=== PATIENT | male | born 1935 | race Caucasian/White ===

== ENCOUNTER → 2019-06-16 | Outpatient (CLI) | payer MEDICARE, SELFPAY | PROVIDERS: PCP Family Medicine; Visit Provider Family Medicine | DX: I10 Essential (primary) hypertension (principal); E78.2 Mixed hyperlipidemia; Z12.5 Encounter for screening for malignant neoplasm of prostate | CPT/HCPCS: 36415; 80061; 80053; G0103; 84153 ==

== ENCOUNTER 2019-12-10 09:28 | Outpatient (CLI) | payer MEDICARE, SELFPAY ==
[2019-12-10 10:53] LABS: Alanine Aminotransferase 15 U/L (4-50); Alkaline Phosphatase 57 U/L (38-126); Aspartate Amino Transferase 24 U/L (17-59); Bilirubin,Total 0.7 mg/dL (0.2-1.3); Blood Urea Nitrogen 17 mg/dL (9-20); Carbon Dioxide 30 mmol/L (22-30); Chloride 103 mmol/L (98-107); Estimated Glomerular Filt Rate > 60; Glucose 99 mg/dL (75-110); Potassium 4.1 mmol/L (3.4-5.0); Sodium 139 mmol/L (137-145)
== END 2019-12-10 09:29 | disposition home or self-care (01) ==
DX: E78.5 Hyperlipidemia, unspecified (principal); I10 Essential (primary) hypertension
CPT/HCPCS: 36415; 80053; 80061

== ENCOUNTER 2020-06-16 09:01 | Outpatient (CLI) | payer MEDICARE, SELFPAY ==
[2020-06-16 09:41] LABS: Basophils Absolute Auto 0.1 K/mm3 (0.0-0.1); Basophils Percent Auto 1.1 % (0.2-1.2); Eosinophils Absolute Auto 0.3 K/mm3 (0-0.3); Eosinophils Percent Auto 4.1 % (0-4.4); Hemoglobin 15.5 g/dL (14.0-18.0); Immature Granulocyte Absolute 0.02 K/mm3 (0.00-0.031); Immature Granulocyte Percent A 0.3 % (0-0.5); Lymphocytes Absolute Auto 1.82 K/mm3 (0.9-3.2); Lymphocytes Percent Auto 29.6 % (18.3-44.2); Mean Corpuscular HGB Conc 33.7 g/dl (32-36); Mean Corpuscular Hemoglobin 31.1 pg (26-34); Mean Corpuscular Volume 92.2 fl (80-100); Mean Platelet Volume 9.6 fl (7.4-10.4); Monocytes Absolute Auto 0.5 K/mm3 (0.1-0.6); Monocytes Percent Auto 7.8 % (2.6-8.5); Neutrophils Absolute Auto 3.5 K/mm3 (1.3-6.7); Neutrophils Percent Auto 57.1 % (45.5-73.1); Platelet Count Result 177 k/mm3 (150-375); Red Blood Count 4.99 M/mm3 (4.6-6.20); Red Cell Distribution Width 12.1 % (11.5-14.5); White Blood Count 6.2 K/mm3 (4.5-10.0)
[2020-06-16 09:53] LABS: Alanine Aminotransferase 13 U/L (4-50); Albumin Level 4.4 g/dL (3.5-5.1); Alkaline Phosphatase 57 U/L (38-126); Anion Gap 6 mmol/L (8-16); Aspartate Amino Transferase 23 U/L (17-59); Bilirubin,Total 0.9 mg/dL (0.2-1.3); Blood Urea Nitrogen 19 mg/dL (9-20); Calcium 9.7 mg/dL (8.4-10.2); Carbon Dioxide 32 mmol/L (22-30); Chloride 102 mmol/L (98-107); Cholesterol 139 mg/dL (0-200); Estimated Glomerular Filt Rate 53; Glucose 97 mg/dL (75-110); HDL Direct 49 mg/dL; Potassium 4.3 mmol/L (3.4-5.0); Sodium 140 mmol/L (137-145); Triglycerides 115 mg/dL (<150)
[2020-06-16 10:04] LABS: LDL Cholesterol Direct 61 mg/dL
[2020-06-16 16:58] LABS: Prostate Specific Antigen 0.1 ng/mL (< OR = 4.0)
== END 2020-06-16 09:02 | disposition home or self-care (01) ==
DX: R53.83 Other fatigue (principal); E78.2 Mixed hyperlipidemia; I10 Essential (primary) hypertension; Z12.5 Encounter for screening for malignant neoplasm of prostate
CPT/HCPCS: 36415; 80053; 80061; 84153; 84443; 85025; G0103

== ENCOUNTER 2020-12-13 09:06 | Outpatient (CLI) | payer MEDICARE, SELFPAY ==
[2020-12-13 10:00] LABS: Alanine Aminotransferase 13 U/L (4-50); Albumin Level 3.9 g/dL (3.5-5.1); Alkaline Phosphatase 53 U/L (38-126); Anion Gap 4 mmol/L (8-16); Aspartate Amino Transferase 22 U/L (17-59); Bilirubin,Total 0.6 mg/dL (0.2-1.3); Blood Urea Nitrogen 20 mg/dL (9-20); Calcium 9.2 mg/dL (8.4-10.2); Carbon Dioxide 28 mmol/L (22-30); Chloride 104 mmol/L (98-107); Cholesterol 118 mg/dL (0-200); Estimated Glomerular Filt Rate 53; Glucose 95 mg/dL (75-110); HDL Direct 49 mg/dL; Potassium 4.2 mmol/L (3.4-5.0); Sodium 136 mmol/L (137-145); Triglycerides 88 mg/dL (<150)
[2020-12-13 10:10] LABS: LDL Cholesterol Direct 49 mg/dL
== END 2020-12-13 09:07 | disposition home or self-care (01) ==
DX: E78.2 Mixed hyperlipidemia (principal); I10 Essential (primary) hypertension
CPT/HCPCS: 36415; 80053; 80061

== ENCOUNTER → 2021-04-06 09:42 | Outpatient (CLI) | payer MEDICARE, SELFPAY ==
--- NOTE | ~2021-04-06 | XR_ITS ---
EXAMINATION: XR wrist RT 2V DATE: 04/06/2021 09:58 INDICATION: Multiple joint pain. TECHNIQUE: 2 views of right wrist were obtained. COMPARISON: None. FINDINGS: Bone alignment is normal. No fracture. There is mild osteoarthritis of triscaphe joint luz acterized by a tiny marginal osteophyte. IMPRESSION: 1. Mild triscaphe joint osteoarthritis. Reviewed, dictated and finalized at location A.
--- NOTE | ~2021-04-06 | XR_ITS ---
XR hand LT 2V DATE: 04/06/2021 09:58 INDICATION: Left hand pain. Multiple joint pain. TECHNIQUE: AP and lateral views COMPARISON: None FINDINGS: There is narrowing of the first metacarpophalangeal joint and multiple interphalangeal join ts and some associated spurring, consistent with polyarticular osteoarthritis. No recent fracture, dislocation, periosteal reaction or bone destruction is detected. IMPRESSION: Polyarticular osteoarthritis Reviewed, dictated and finalized at location A.
--- NOTE | ~2021-04-06 | XR_ITS ---
XR wrist LT 2V DATE: 04/06/2021 09:58 INDICATION: Left wrist pain. Multiple joint pain. TECHNIQUE: AP and lateral views COMPARISON: None FINDINGS: No fracture or dislocation, periosteal reaction or bone destruction, erosive change or jimena drocalcinosis. IMPRESSION: Negative Reviewed, dictated and finalized at location A. IMPRESSION: Negative
--- NOTE | ~2021-04-06 | XR_ITS ---
EXAMINATION: XR hand RT 2V DATE: 04/06/2021 09:58 INDICATION: Multiple joint pain. TECHNIQUE: 2 views of right hand were obtained. COMPARISON: None. FINDINGS: Bone alignment is normal. No fracture. There is an old healed fracture deformity of fourth middle phalanx. There is mild osteoarthritis of triscaphe joint, third metacarpophalangeal joint, and most of the interphalangeal joints. There is moderate osteoarthritis of fourth proximal interphalang eal joint and second distal interphalangeal joint. IMPRESSION: 1. Polyarticular osteoarthritis. Reviewed, dictated and finalized at location A.
== END ==
PROVIDERS: Visit Provider Internal Medicine Rheumatology
DX: M18.12 Unilateral primary osteoarthritis of first carpometacarpal joint, left hand (principal); M19.042 Primary osteoarthritis, left hand; M19.041 Primary osteoarthritis, right hand; M19.031 Primary osteoarthritis, right wrist
CPT/HCPCS: 73100; 73120

== ENCOUNTER 2021-06-22 07:46 | Outpatient (CLI) | payer MEDICARE, SELFPAY ==
[2021-06-22 08:47] LABS: Basophils Absolute Auto 0.1 K/mm3 (0.0-0.1); Eosinophils Absolute Auto 0.2 K/mm3 (0-0.3); Eosinophils Percent Auto 2.4 % (0-4.4); Hematocrit 37.7 % (42.0-52.0); Hemoglobin 12.7 g/dL (14.0-18.0); Immature Granulocyte Absolute 0.02 K/mm3 (0.00-0.031); Immature Granulocyte Percent A 0.3 % (0-0.5); Lymphocytes Absolute Auto 2.35 K/mm3 (0.9-3.2); Mean Corpuscular HGB Conc 33.7 g/dl (32-36); Mean Corpuscular Hemoglobin 33.8 pg (26-34); Mean Corpuscular Volume 100.3 fl (80-100); Mean Platelet Volume 9.1 fl (7.4-10.4); Monocytes Absolute Auto 0.6 K/mm3 (0.1-0.6); Neutrophils Absolute Auto 3.1 K/mm3 (1.3-6.7); Neutrophils Percent Auto 49.3 % (45.5-73.1); Platelet Count Result 181 k/mm3 (150-375); Red Blood Count 3.76 M/mm3 (4.6-6.20); Red Cell Distribution Width 13.3 % (11.5-14.5); White Blood Count 6.2 K/mm3 (4.5-10.0)
[2021-06-22 09:04] LABS: Alanine Aminotransferase 22 U/L (4-50); Alkaline Phosphatase 34 U/L (38-126); Anion Gap 7 mmol/L (8-16); Aspartate Amino Transferase 27 U/L (17-59); Bilirubin,Total 1.1 mg/dL (0.2-1.3); Blood Urea Nitrogen 20 mg/dL (9-20); Calcium 9.5 mg/dL (8.4-10.2); Carbon Dioxide 29 mmol/L (22-30); Chloride 103 mmol/L (98-107); Cholesterol 137 mg/dL (0-200); Estimated Glomerular Filt Rate 52; Glucose 90 mg/dL (65-110); HDL Direct 52 mg/dL; Potassium 4.1 mmol/L (3.4-5.0); Sodium 139 mmol/L (137-145); Triglycerides 106 mg/dL (<150)
[2021-06-22 09:15] LABS: LDL Cholesterol Direct 53 mg/dL
[2021-06-22 09:32] LABS: Prostate Specific Antigen 0.2 ng/mL (< OR = 4.0)
== END 2021-06-22 07:47 | disposition home or self-care (01) ==
DX: R53.83 Other fatigue (principal); E78.2 Mixed hyperlipidemia; I10 Essential (primary) hypertension; Z12.5 Encounter for screening for malignant neoplasm of prostate
CPT/HCPCS: 36415; 80053; 80061; 84153; 84443; 85025; G0103

== ENCOUNTER 2021-06-30 08:16 | Outpatient (CLI) | payer MEDICARE, SELFPAY ==
[2021-06-30 11:43] LABS: Folic Acid > 20.0 ng/mL (2.76->20)
== END 2021-06-30 08:17 | disposition home or self-care (01) ==
LOC: ANHLAB 08:24
DX: D53.9 Nutritional anemia, unspecified (principal)
CPT/HCPCS: 36415; 82607; 82746

== ENCOUNTER 2021-12-09 11:10 | Outpatient (CLI) | payer MEDICARE, SELFPAY ==
[2021-12-09 11:49] LABS: Alanine Aminotransferase 13 U/L (4-50); Albumin Level 4.1 g/dL (3.5-5.1); Alkaline Phosphatase 46 U/L (38-126); Anion Gap 5 mmol/L (8-16); Aspartate Amino Transferase 21 U/L (17-59); Bilirubin,Total 0.7 mg/dL (0.2-1.3); Blood Urea Nitrogen 21 mg/dL (9-20); Calcium 8.8 mg/dL (8.4-10.2); Carbon Dioxide 27 mmol/L (22-30); Chloride 106 mmol/L (98-107); Cholesterol 123 mg/dL (0-200); Estimated Glomerular Filt Rate 52; Glucose 99 mg/dL (65-110); HDL Direct 45 mg/dL; Potassium 4.3 mmol/L (3.4-5.0); Sodium 138 mmol/L (137-145); Triglycerides 88 mg/dL (<150)
[2021-12-09 11:50] LABS: Basophils Absolute Auto 0.1 K/mm3 (0.0-0.1); Basophils Percent Auto 0.7 % (0.2-1.2); Eosinophils Absolute Auto 0.2 K/mm3 (0-0.3); Eosinophils Percent Auto 2.5 % (0-4.4); Hematocrit 37.9 % (42.0-52.0); Hemoglobin 12.2 g/dL (14.0-18.0); Immature Granulocyte Absolute 0.02 K/mm3 (0.00-0.031); Immature Granulocyte Percent A 0.3 % (0-0.5); Lymphocytes Absolute Auto 1.73 K/mm3 (0.9-3.2); Lymphocytes Percent Auto 23.6 % (18.3-44.2); Mean Corpuscular HGB Conc 32.2 g/dl (32-36); Mean Corpuscular Hemoglobin 32.4 pg (26-34); Mean Corpuscular Volume 100.8 fl (80-100); Mean Platelet Volume 9.6 fl (7.4-10.4); Monocytes Absolute Auto 0.7 K/mm3 (0.1-0.6); Monocytes Percent Auto 9.4 % (2.6-8.5); Neutrophils Absolute Auto 4.7 K/mm3 (1.3-6.7); Neutrophils Percent Auto 63.5 % (45.5-73.1); Platelet Count Result 176 k/mm3 (150-375); Red Blood Count 3.76 M/mm3 (4.6-6.20); Red Cell Distribution Width 13.2 % (11.5-14.5); White Blood Count 7.3 K/mm3 (4.5-10.0)
[2021-12-09 12:00] LABS: LDL Cholesterol Direct 45 mg/dL
== END 2021-12-09 11:11 | disposition home or self-care (01) ==
LOC: ANHLAB 11:14
DX: D64.9 Anemia, unspecified (principal); I10 Essential (primary) hypertension; E78.2 Mixed hyperlipidemia
CPT/HCPCS: 36415; 80053; 80061; 85025

== ENCOUNTER 2022-06-17 07:17 | Outpatient (CLI) | payer MEDICARE, SELFPAY ==
[2022-06-17 07:52] LABS: Basophils Percent Auto 0.6 % (0.2-1.2); Eosinophils Absolute Auto 0.1 K/mm3 (0-0.3); Eosinophils Percent Auto 1.9 % (0-4.4); Hemoglobin 11.6 g/dL (14.0-18.0); Immature Granulocyte Absolute 0.03 K/mm3 (0.00-0.031); Immature Granulocyte Percent A 0.5 % (0-0.5); Lymphocytes Absolute Auto 2.67 K/mm3 (0.9-3.2); Lymphocytes Percent Auto 43.2 % (18.3-44.2); Mean Corpuscular HGB Conc 33.1 g/dl (32-36); Mean Corpuscular Hemoglobin 32.3 pg (26-34); Mean Corpuscular Volume 97.5 fl (80-100); Mean Platelet Volume 9.1 fl (7.4-10.4); Monocytes Absolute Auto 0.6 K/mm3 (0.1-0.6); Monocytes Percent Auto 9.1 % (2.6-8.5); Neutrophils Absolute Auto 2.8 K/mm3 (1.3-6.7); Neutrophils Percent Auto 44.7 % (45.5-73.1); Platelet Count Result 187 k/mm3 (150-375); Red Blood Count 3.59 M/mm3 (4.6-6.20); White Blood Count 6.2 K/mm3 (4.5-10.0)
[2022-06-17 08:03] LABS: Alanine Aminotransferase 14 U/L (6-50); Alkaline Phosphatase 43 U/L (38-126); Anion Gap 10 mmol/L (8-16); Aspartate Amino Transferase 19 U/L (17-59); Bilirubin,Total 0.7 mg/dL (0.2-1.3); Blood Urea Nitrogen 26 mg/dL (9-20); Calcium 9.4 mg/dL (8.4-10.2); Carbon Dioxide 25 mmol/L (22-30); Chloride 104 mmol/L (98-107); Cholesterol 138 mg/dL (0-200); Estimated Glomerular Filt Rate 48; Glucose 90 mg/dL (65-110); HDL Direct 52 mg/dL; Sodium 139 mmol/L (137-145); Triglycerides 107 mg/dL (<150)
[2022-06-17 08:14] LABS: LDL Cholesterol Direct 56 mg/dL
[2022-06-17 08:33] LABS: Prostate Specific Antigen 0.2 ng/mL (< OR = 4.0)
== END 2022-06-17 07:18 | disposition home or self-care (01) ==
LOC: ANHLAB 07:24
DX: E78.2 Mixed hyperlipidemia (principal); I10 Essential (primary) hypertension; R53.83 Other fatigue; Z12.5 Encounter for screening for malignant neoplasm of prostate
CPT/HCPCS: 36415; 80053; 80061; 84153; 85025; G0103

== ENCOUNTER 2022-07-19 08:00 | Outpatient (CLI) | payer MEDICARE, SELFPAY ==
[2022-07-19 08:24] LABS: Basophils Percent Auto 0.5 % (0.2-1.2); Eosinophils Absolute Auto 0.2 K/mm3 (0-0.3); Eosinophils Percent Auto 2.9 % (0-4.4); Hematocrit 36.5 % (42.0-52.0); Hemoglobin 12.1 g/dL (14.0-18.0); Immature Granulocyte Absolute 0.01 K/mm3 (0.00-0.031); Immature Granulocyte Percent A 0.1 % (0-0.5); Lymphocytes Absolute Auto 1.58 K/mm3 (0.9-3.2); Lymphocytes Percent Auto 19.8 % (18.3-44.2); Mean Corpuscular HGB Conc 33.2 g/dl (32-36); Mean Corpuscular Hemoglobin 33.4 pg (26-34); Mean Corpuscular Volume 100.8 fl (80-100); Mean Platelet Volume 9.3 fl (7.4-10.4); Monocytes Absolute Auto 0.5 K/mm3 (0.1-0.6); Monocytes Percent Auto 6.4 % (2.6-8.5); Neutrophils Absolute Auto 5.6 K/mm3 (1.3-6.7); Neutrophils Percent Auto 70.3 % (45.5-73.1); Platelet Count Result 190 k/mm3 (150-375); Red Blood Count 3.62 M/mm3 (4.6-6.20); Red Cell Distribution Width 13.3 % (11.5-14.5)
[2022-07-19 08:36] LABS: Alanine Aminotransferase 20 U/L (6-50); Albumin Level 4.1 g/dL (3.5-5.1); Alkaline Phosphatase 45 U/L (38-126); Anion Gap 4 mmol/L (8-16); Aspartate Amino Transferase 22 U/L (17-59); Bilirubin,Total 0.8 mg/dL (0.2-1.3); Blood Urea Nitrogen 23 mg/dL (9-20); CRP 0.9 mg/dL (<1.0); Calcium 9.3 mg/dL (8.4-10.2); Carbon Dioxide 27 mmol/L (22-30); Chloride 102 mmol/L (98-107); Estimated Glomerular Filt Rate 48; Glucose 95 mg/dL (65-110); Potassium 4.6 mmol/L (3.4-5.0); Sodium 133 mmol/L (137-145)
[2022-07-19 11:13] LABS: Erythrocyte Sedimentation Rate 14 mm/hr (0-20)
== END 2022-07-19 08:01 | disposition home or self-care (01) ==
LOC: ANHLAB 08:05
DX: M05.9 Rheumatoid arthritis with rheumatoid factor, unspecified (principal)
CPT/HCPCS: 36415; 80053; 85025; 85652; 86140

== ENCOUNTER 2022-09-06 08:38 | Outpatient (CLI) | payer MEDICARE, SELFPAY ==
[2022-09-06 09:07] LABS: Basophils Percent Auto 0.9 % (0.2-1.2); Eosinophils Absolute Auto 0.2 K/mm3 (0-0.3); Eosinophils Percent Auto 4.1 % (0-4.4); Hematocrit 35.8 % (42.0-52.0); Hemoglobin 11.9 g/dL (14.0-18.0); Immature Granulocyte Absolute 0.01 K/mm3 (0.00-0.031); Immature Granulocyte Percent A 0.2 % (0-0.5); Lymphocytes Absolute Auto 1.68 K/mm3 (0.9-3.2); Lymphocytes Percent Auto 35.9 % (18.3-44.2); Mean Corpuscular HGB Conc 33.2 g/dl (32-36); Mean Corpuscular Hemoglobin 33.5 pg (26-34); Mean Corpuscular Volume 100.8 fl (80-100); Mean Platelet Volume 9.3 fl (7.4-10.4); Monocytes Absolute Auto 0.3 K/mm3 (0.1-0.6); Monocytes Percent Auto 6.8 % (2.6-8.5); Neutrophils Absolute Auto 2.4 K/mm3 (1.3-6.7); Neutrophils Percent Auto 52.1 % (45.5-73.1); Platelet Count Result 153 k/mm3 (150-375); Red Blood Count 3.55 M/mm3 (4.6-6.20); Red Cell Distribution Width 12.9 % (11.5-14.5); White Blood Count 4.7 K/mm3 (4.5-10.0)
[2022-09-06 09:23] LABS: Alanine Aminotransferase 19 U/L (6-50); Albumin Level 4.1 g/dL (3.5-5.1); Alkaline Phosphatase 51 U/L (38-126); Anion Gap 6 mmol/L (8-16); Aspartate Amino Transferase 25 U/L (17-59); Bilirubin,Total 0.9 mg/dL (0.2-1.3); Blood Urea Nitrogen 24 mg/dL (9-20); CRP < 0.5 mg/dL (<1.0); Carbon Dioxide 28 mmol/L (22-30); Chloride 101 mmol/L (98-107); Estimated Glomerular Filt Rate 48; Glucose 88 mg/dL (65-110); Potassium 3.9 mmol/L (3.4-5.0); Sodium 135 mmol/L (137-145)
[2022-09-06 09:43] LABS: Erythrocyte Sedimentation Rate 13 mm/hr (0-20)
== END 2022-09-06 08:39 | disposition home or self-care (01) ==
DX: Z79.899 Other long term (current) drug therapy (principal)
CPT/HCPCS: 36415; 80053; 85025; 85652; 86140

== ENCOUNTER 2022-10-23 12:41 | Outpatient (CLI) | payer MEDICARE, SELFPAY ==
[2022-10-23 13:15] LABS: Basophils Percent Auto 0.8 % (0.2-1.2); Eosinophils Absolute Auto 0.2 K/mm3 (0-0.3); Eosinophils Percent Auto 3.8 % (0-4.4); Hematocrit 38.6 % (42.0-52.0); Hemoglobin 12.6 g/dL (14.0-18.0); Immature Granulocyte Absolute 0.02 K/mm3 (0.00-0.031); Immature Granulocyte Percent A 0.5 % (0-0.5); Lymphocytes Absolute Auto 1.19 K/mm3 (0.9-3.2); Lymphocytes Percent Auto 30.4 % (18.3-44.2); Mean Corpuscular HGB Conc 32.6 g/dl (32-36); Mean Corpuscular Hemoglobin 32.5 pg (26-34); Mean Corpuscular Volume 99.5 fl (80-100); Mean Platelet Volume 9.3 fl (7.4-10.4); Monocytes Absolute Auto 0.4 K/mm3 (0.1-0.6); Neutrophils Absolute Auto 2.1 K/mm3 (1.3-6.7); Neutrophils Percent Auto 54.5 % (45.5-73.1); Platelet Count Result 205 k/mm3 (150-375); Red Blood Count 3.88 M/mm3 (4.6-6.20); Red Cell Distribution Width 12.8 % (11.5-14.5); White Blood Count 3.9 K/mm3 (4.5-10.0)
[2022-10-23 13:23] LABS: Alanine Aminotransferase 19 U/L (6-50); Albumin Level 4.1 g/dL (3.5-5.1); Alkaline Phosphatase 62 U/L (38-126); Anion Gap 5 mmol/L (8-16); Aspartate Amino Transferase 21 U/L (17-59); Blood Urea Nitrogen 17 mg/dL (9-20); Calcium 9.2 mg/dL (8.4-10.2); Carbon Dioxide 28 mmol/L (22-30); Chloride 103 mmol/L (98-107); Estimated Glomerular Filt Rate 52; Glucose 89 mg/dL (65-110); Potassium 4.4 mmol/L (3.4-5.0); Sodium 136 mmol/L (137-145)
[2022-10-23 13:25] LABS: CRP < 0.5 mg/dL (<1.0)
[2022-10-23 16:36] LABS: Erythrocyte Sedimentation Rate 12 mm/hr (0-20)
== END 2022-10-23 12:42 | disposition home or self-care (01) ==
DX: Z79.899 Other long term (current) drug therapy (principal)
CPT/HCPCS: 36415; 80053; 85025; 85652; 86140

== ENCOUNTER 2022-12-13 08:42 | Outpatient (CLI) | payer MEDICARE, SELFPAY ==
[2022-12-13 10:06] LABS: Basophils Percent Auto 0.7 % (0.2-1.2); Eosinophils Absolute Auto 0.2 K/mm3 (0-0.3); Eosinophils Percent Auto 3.9 % (0-4.4); Hematocrit 38.1 % (42.0-52.0); Hemoglobin 12.5 g/dL (14.0-18.0); Immature Granulocyte Absolute 0.02 K/mm3 (0.00-0.031); Immature Granulocyte Percent A 0.4 % (0-0.5); Lymphocytes Absolute Auto 1.76 K/mm3 (0.9-3.2); Mean Corpuscular HGB Conc 32.8 g/dl (32-36); Mean Corpuscular Hemoglobin 32.6 pg (26-34); Mean Corpuscular Volume 99.5 fl (80-100); Monocytes Absolute Auto 0.3 K/mm3 (0.1-0.6); Neutrophils Absolute Auto 3.3 K/mm3 (1.3-6.7); Platelet Count Result 176 k/mm3 (150-375); Red Blood Count 3.83 M/mm3 (4.6-6.20); Red Cell Distribution Width 13.2 % (11.5-14.5); White Blood Count 5.7 K/mm3 (4.5-10.0)
[2022-12-13 10:18] LABS: Alanine Aminotransferase 17 U/L (6-50); Albumin Level 4.1 g/dL (3.5-5.1); Alkaline Phosphatase 59 U/L (38-126); Anion Gap 4 mmol/L (8-16); Aspartate Amino Transferase 23 U/L (17-59); Bilirubin,Total 0.8 mg/dL (0.2-1.3); Blood Urea Nitrogen 25 mg/dL (9-20); Calcium 9.4 mg/dL (8.4-10.2); Carbon Dioxide 30 mmol/L (22-30); Chloride 103 mmol/L (98-107); Cholesterol 133 mg/dL (0-200); Estimated Glomerular Filt Rate 57; Glucose 91 mg/dL (65-110); HDL Direct 42 mg/dL; Potassium 4.1 mmol/L (3.4-5.0); Sodium 137 mmol/L (137-145); Triglycerides 106 mg/dL (<150)
[2022-12-13 10:29] LABS: LDL Cholesterol Direct 56 mg/dL
[2022-12-13 10:54] LABS: Free T4 Free Thyroxine 0.98 ng/mL (0.78-2.19)
== END 2022-12-13 08:43 | disposition home or self-care (01) ==
DX: I10 Essential (primary) hypertension (principal); N28.9 Disorder of kidney and ureter, unspecified; E78.2 Mixed hyperlipidemia; R53.83 Other fatigue
CPT/HCPCS: 36415; 80053; 80061; 84439; 84443; 85025

== ENCOUNTER 2023-01-17 09:00 | Outpatient (CLI) | payer MEDICARE, SELFPAY ==
[2023-01-17 09:45] LABS: Basophils Absolute Auto 0.1 K/mm3 (0.0-0.1); Basophils Percent Auto 0.9 % (0.2-1.2); Eosinophils Absolute Auto 0.2 K/mm3 (0-0.3); Eosinophils Percent Auto 3.2 % (0-4.4); Hematocrit 35.7 % (42.0-52.0); Hemoglobin 11.9 g/dL (14.0-18.0); Immature Granulocyte Absolute 0.01 K/mm3 (0.00-0.031); Immature Granulocyte Percent A 0.2 % (0-0.5); Lymphocytes Absolute Auto 1.56 K/mm3 (0.9-3.2); Lymphocytes Percent Auto 23.8 % (18.3-44.2); Mean Corpuscular HGB Conc 33.3 g/dl (32-36); Mean Corpuscular Hemoglobin 32.2 pg (26-34); Mean Corpuscular Volume 96.5 fl (80-100); Mean Platelet Volume 9.5 fl (7.4-10.4); Monocytes Absolute Auto 0.5 K/mm3 (0.1-0.6); Monocytes Percent Auto 6.9 % (2.6-8.5); Neutrophils Absolute Auto 4.3 K/mm3 (1.3-6.7); Platelet Count Result 181 k/mm3 (150-375); Red Cell Distribution Width 12.3 % (11.5-14.5); White Blood Count 6.6 K/mm3 (4.5-10.0)
[2023-01-17 10:01] LABS: Alanine Aminotransferase 13 U/L (6-50); Alkaline Phosphatase 63 U/L (38-126); Anion Gap 6 mmol/L (8-16); Aspartate Amino Transferase 20 U/L (17-59); Bilirubin,Total 0.8 mg/dL (0.2-1.3); Blood Urea Nitrogen 22 mg/dL (9-20); CRP 2.2 mg/dL (<1.0); Calcium 9.2 mg/dL (8.4-10.2); Carbon Dioxide 28 mmol/L (22-30); Chloride 103 mmol/L (98-107); Estimated Glomerular Filt Rate 57; Glucose 99 mg/dL (65-110); Potassium 4.1 mmol/L (3.4-5.0); Sodium 137 mmol/L (137-145)
[2023-01-17 11:52] LABS: Erythrocyte Sedimentation Rate 23 mm/hr (0-20)
== END 2023-01-17 09:01 | disposition home or self-care (01) ==
PROVIDERS: Visit Provider Internal Medicine Rheumatology
DX: Z79.899 Other long term (current) drug therapy (principal)
CPT/HCPCS: 36415; 80053; 85025; 85652; 86140

== ENCOUNTER 2023-02-05 11:21 | Emergency (ER) | payer MEDICARE, SELFPAY ==
[2023-02-05] VITALS (14 sets, daily range): BP systolic 113–131; BP diastolic 59–73; PULSE 56–79; RESP 13–21; TEMP 36.4; O2SAT 84–100
[2023-02-05 12:07] LABS: Basophils Absolute Auto 0.1 K/mm3 (0.0-0.1); Basophils Percent Auto 0.4 % (0.2-1.2); Eosinophils Absolute Auto 0.1 K/mm3 (0-0.3); Hematocrit 37.3 % (42.0-52.0); Hemoglobin 12.2 g/dL (14.0-18.0); Immature Granulocyte Absolute 0.04 K/mm3 (0.00-0.031); Immature Granulocyte Percent A 0.3 % (0-0.5); Lymphocytes Absolute Auto 1.84 K/mm3 (0.9-3.2); Lymphocytes Percent Auto 15.1 % (18.3-44.2); Mean Corpuscular HGB Conc 32.7 g/dl (32-36); Mean Corpuscular Hemoglobin 32.4 pg (26-34); Mean Corpuscular Volume 99.2 fl (80-100); Mean Platelet Volume 9.5 fl (7.4-10.4); Monocytes Percent Auto 8.5 % (2.6-8.5); Neutrophils Absolute Auto 9.1 K/mm3 (1.3-6.7); Neutrophils Percent Auto 74.7 % (45.5-73.1); Platelet Count Result 223 k/mm3 (150-375); Red Blood Count 3.76 M/mm3 (4.6-6.20); Red Cell Distribution Width 12.5 % (11.5-14.5); White Blood Count 12.2 K/mm3 (4.5-10.0)
[2023-02-05 12:08] LABS: Appearance Urine Clear (Clear); Bilirubin Urine Negative (Negative); Blood Urine Negative (Negative); Color Urine Yellow (Yellow); Glucose Urine UA Negative (Negative); Ketones Urine Trace mg/dL (Negative); Leukocyte Esterase Ur Negative LEU/UL (Negative); Nitrate Urine Negative (Negative); Protein Urine Negative (Negative); Specific Grav Ur 1.016 (1.001-1.035); pH Urine 5.5 (5.0-9.0)
[2023-02-05 12:16] LABS: Add Urine Microscopic? NO
[2023-02-05 12:18] LABS: Alanine Aminotransferase 14 U/L (6-50); Albumin Level 4.2 g/dL (3.5-5.1); Alkaline Phosphatase 64 U/L (38-126); Anion Gap 9 mmol/L (8-16); Aspartate Amino Transferase 21 U/L (17-59); Bilirubin,Total 1.4 mg/dL (0.2-1.3); Blood Urea Nitrogen 29 mg/dL (9-20); Calcium 9.1 mg/dL (8.4-10.2); Carbon Dioxide 27 mmol/L (22-30); Chloride 98 mmol/L (98-107); Estimated CRCL calculation 28 ml/min; Estimated Glomerular Filt Rate 48; Glucose 95 mg/dL (65-110); Lipase 71 U/L (23-300); Potassium 4.2 mmol/L (3.4-5.0); Sodium 134 mmol/L (137-145)
[2023-02-05] MEDS: SODIUM CHLORIDE 0.9% IV 1,000 ML 999 ML IV CONT (12:27)
--- NOTE | 2023-02-05 13:24 | ED.GENADULT ---
HPI - General Adult General Chief complaint: Nausea/Vomiting/Diarrhea Stated complaint: vomiting Time Seen by Provider: 02/05/23 11:56 History of Present Illness HPI narrative: Patient is an 87-year-old male who presents ER with nausea and vomiting. Ongoing over the last 4 days. Referred here by PCP due to concerns for dehydration. Denies fevers or chills or sweats. No abdominal pain. Reports this is occurred to him in the past when he has been in the heat for prolonged period. No alleviating factors. Family reports patient has had 25 pound weight loss but they think it is due to to chronic wasting as he is not treated for RA and has more pain and does less. Related Data Allergies Allergy/AdvReac Type Severity Reaction Status Date / Time cephalexin Allergy Severe ANAPHALYTIC Verified 02/05/23 11:59 Penicillins Allergy Severe RASH Verified 02/05/23 11:59 sulfamethoxazole Allergy Severe RASH Verified 02/05/23 11:59 trimethoprim Allergy Severe RASH Verified 02/05/23 11:59 Review of Systems Review of Systems: All systems reviewed & are unremarkable except as noted in HPI and below Constitutional: Constitutional: Denies chills, Denies fatigue and Denies fever(s) Comments: Weight loss ENT: Denies nasal congestion and Denies sore throat Cardiovascular: Cardiovascular: Denies chest pain and Denies rapid heart rate Respiratory: Respiratory: Denies cough and Denies dyspnea Gastrointestinal: Gastrointestinal: Denies abdominal pain, Denies diarrhea, Reports nausea and Reports vomiting Genitourinary: Genitourinary: Denies dysuria and Denies urinary frequency PMFSH Past Medical History Medical History (Updated 02/05/23 @ 13:36 by Jonathan Saenz MD) BPH (benign prostatic hyperplasia) CVA (cerebral vascular accident) Hypertension Rheumatoid arthritis Surgical History Surgical History (Updated 02/05/23 @ 13:34 by Jonathan Saenz MD) No pertinent past surgical history Exam Narrative: GENERAL: Well-appearing, well-nourished, and in no acute distress. HEAD: Normocephalic, atraumatic. EYES: PERRL and EOMI. ENT: Mucous membranes moist. CHEST: Clear to auscultation. No respiratory distress. HEART: Regular rate and rhythm. Normal peripheral pulses. ABDOMEN: Soft, nontender, nondistended. EXTREMITIES: Normal range of motion. No edema. NEURO: N Alert and oriented x3. PSYCH: Normal mood and affect. Course Course Emergency Course: No nausea or emesis here. Patient hydrated and feels like he needs to urinate. He will be discharged home. Family reports they are following up with PCP regarding weight loss. Vital Signs Vital signs: Vital Signs Temperature 97.6 F 02/05/23 11:25 Pulse Rate 77 02/05/23 11:25 Respiratory Rate 15 02/05/23 11:25 Blood Pressure 123/66 02/05/23 11:25 Pulse Oximetry 100 02/05/23 11:25 Oxygen Delivery Room Air 02/05/23 11:25 Temperature 97.6 F 02/05/23 11:25 Pulse Rate 79 02/05/23 12:10 Respiratory Rate 15 02/05/23 11:25 Blood Pressure 118/72 02/05/23 12:10 Pulse Oximetry 100 02/05/23 11:25 Oxygen Delivery Room Air 02/05/23 11:25 Medical Decision Making Vital Signs Vital Signs: Vital Signs Temperature 97.6 F 02/05/23 11:25 Pulse Rate 77 02/05/23 11:25 Respiratory Rate 15 02/05/23 11:25 Blood Pressure 123/66 02/05/23 11:25 Pulse Oximetry 100 02/05/23 11:25 Oxygen Delivery Room Air 02/05/23 11:25 Temperature 97.6 F 02/05/23 11:25 Pulse Rate 79 02/05/23 12:10 Respiratory Rate 15 02/05/23 11:25 Blood Pressure 118/72 02/05/23 12:10 Pulse Oximetry 100 02/05/23 11:25 Oxygen Delivery Room Air 02/05/23 11:25 Lab Data 02/05/23 11:56 02/05/23 11:56 Labs: Lab Results 02/05/23 Range/Units 11:56 WBC 12.2 H (4.5-10.0) K/mm3 RBC 3.76 L (4.6-6.20) M/mm3 Hgb 12.2 L (14.0-18.0) g/dL Hct 37.3 L (42.0-52.0) % MCV 99.2 (80-1
== END 2023-02-05 13:39 | disposition home or self-care (01) ==
PROVIDERS: Emergency Provider Emergency Medicine; PCP Internal Medicine Rheumatology
DX: E86.0 Dehydration (principal); R11.2 Nausea with vomiting, unspecified; N40.0 Benign prostatic hyperplasia without lower urinary tract symptoms; I10 Essential (primary) hypertension; M06.9 Rheumatoid arthritis, unspecified; Z86.73 Personal history of transient ischemic attack (TIA), and cerebral infarction without residual deficits
CPT/HCPCS: 36415; 80053; 81003; 83690; 85025; 96360; 99283; J7030

== ENCOUNTER 2023-03-01 09:28 | Outpatient (CLI) | payer MEDICARE, SELFPAY ==
[2023-03-01 10:34] LABS: Basophils Absolute Auto 0.1 K/mm3 (0.0-0.1); Basophils Percent Auto 0.9 % (0.2-1.2); Eosinophils Absolute Auto 0.3 K/mm3 (0-0.3); Eosinophils Percent Auto 5.3 % (0-4.4); Hematocrit 35.1 % (42.0-52.0); Hemoglobin 11.5 g/dL (14.0-18.0); Immature Granulocyte Absolute 0.01 K/mm3 (0.00-0.031); Immature Granulocyte Percent A 0.2 % (0-0.5); Lymphocytes Absolute Auto 1.96 K/mm3 (0.9-3.2); Lymphocytes Percent Auto 35.6 % (18.3-44.2); Mean Corpuscular HGB Conc 32.8 g/dl (32-36); Mean Corpuscular Hemoglobin 32.3 pg (26-34); Mean Corpuscular Volume 98.6 fl (80-100); Mean Platelet Volume 10.1 fl (7.4-10.4); Monocytes Absolute Auto 0.5 K/mm3 (0.1-0.6); Monocytes Percent Auto 9.6 % (2.6-8.5); Neutrophils Absolute Auto 2.7 K/mm3 (1.3-6.7); Neutrophils Percent Auto 48.4 % (45.5-73.1); Platelet Count Result 181 k/mm3 (150-375); Red Blood Count 3.56 M/mm3 (4.6-6.20); Red Cell Distribution Width 12.7 % (11.5-14.5); White Blood Count 5.5 K/mm3 (4.5-10.0)
[2023-03-01 10:49] LABS: Alanine Aminotransferase 13 U/L (6-50); Albumin Level 3.7 g/dL (3.5-5.1); Alkaline Phosphatase 49 U/L (38-126); Anion Gap 5 mmol/L (8-16); Aspartate Amino Transferase 20 U/L (17-59); Bilirubin,Total 0.7 mg/dL (0.2-1.3); Blood Urea Nitrogen 26 mg/dL (9-20); CRP 1.1 mg/dL (<1.0); Calcium 8.9 mg/dL (8.4-10.2); Carbon Dioxide 30 mmol/L (22-30); Chloride 101 mmol/L (98-107); Estimated Glomerular Filt Rate 48; Glucose 93 mg/dL (65-110); Sodium 136 mmol/L (137-145)
[2023-03-01 11:17] LABS: Erythrocyte Sedimentation Rate 20 mm/hr (0-20)
== END 2023-03-01 09:29 | disposition home or self-care (01) ==
PROVIDERS: PCP Internal Medicine Rheumatology; Visit Provider Internal Medicine Rheumatology
DX: Z79.899 Other long term (current) drug therapy (principal)
CPT/HCPCS: 36415; 80053; 85025; 85652; 86140

== ENCOUNTER 2023-06-15 07:45 | Outpatient (CLI) | payer MEDICARE, SELFPAY ==
[2023-06-15 08:54] LABS: Basophils Absolute Auto 0.1 K/mm3 (0.0-0.1); Eosinophils Absolute Auto 0.2 K/mm3 (0-0.3); Eosinophils Percent Auto 3.2 % (0-4.4); Immature Granulocyte Absolute 0.02 K/mm3 (0.00-0.031); Immature Granulocyte Percent A 0.3 % (0-0.5); Mean Corpuscular HGB Conc 32.4 g/dl (32-36); Mean Corpuscular Hemoglobin 32.9 pg (26-34); Mean Corpuscular Volume 101.4 fl (80-100); Monocytes Absolute Auto 0.6 K/mm3 (0.1-0.6); Monocytes Percent Auto 8.7 % (2.6-8.5); Neutrophils Percent Auto 58.8 % (45.5-73.1); Platelet Count Result 185 k/mm3 (150-375); Red Blood Count 3.65 M/mm3 (4.6-6.20); Red Cell Distribution Width 13.1 % (11.5-14.5); White Blood Count 6.8 K/mm3 (4.5-10.0)
[2023-06-15 09:00] LABS: Alanine Aminotransferase 12 U/L (6-50); Alkaline Phosphatase 48 U/L (38-126); Anion Gap 4 mmol/L (8-16); Aspartate Amino Transferase 22 U/L (17-59); Bilirubin,Total 0.9 mg/dL (0.2-1.3); Blood Urea Nitrogen 21 mg/dL (9-20); CRP < 0.5 mg/dL (<1.0); Calcium 9.2 mg/dL (8.4-10.2); Carbon Dioxide 29 mmol/L (22-30); Chloride 103 mmol/L (98-107); Estimated Glomerular Filt Rate 52; Glucose 93 mg/dL (65-110); Potassium 4.3 mmol/L (3.4-5.0); Sodium 136 mmol/L (137-145)
[2023-06-15 09:30] LABS: Erythrocyte Sedimentation Rate 16 mm/hr (0-20)
== END 2023-06-15 07:46 | disposition home or self-care (01) ==
LOC: ANHLAB 07:53
PROVIDERS: PCP Internal Medicine Rheumatology; Visit Provider Internal Medicine Rheumatology
DX: Z79.899 Other long term (current) drug therapy (principal)
CPT/HCPCS: 36415; 80053; 85025; 85652; 86140

== ENCOUNTER 2023-06-18 08:37 | Outpatient (CLI) | payer MEDICARE, SELFPAY ==
[2023-06-18 09:23] LABS: Basophils Absolute Auto 0.1 K/mm3 (0.0-0.1); Basophils Percent Auto 0.7 % (0.2-1.2); Eosinophils Absolute Auto 0.3 K/mm3 (0-0.3); Eosinophils Percent Auto 2.7 % (0-4.4); Hematocrit 39.6 % (42.0-52.0); Hemoglobin 12.8 g/dL (14.0-18.0); Immature Granulocyte Absolute 0.03 K/mm3 (0.00-0.031); Immature Granulocyte Percent A 0.3 % (0-0.5); Lymphocytes Absolute Auto 1.64 K/mm3 (0.9-3.2); Lymphocytes Percent Auto 17.8 % (18.3-44.2); Mean Corpuscular HGB Conc 32.3 g/dl (32-36); Mean Corpuscular Hemoglobin 32.9 pg (26-34); Mean Corpuscular Volume 101.8 fl (80-100); Monocytes Absolute Auto 0.7 K/mm3 (0.1-0.6); Monocytes Percent Auto 7.4 % (2.6-8.5); Neutrophils Absolute Auto 6.5 K/mm3 (1.3-6.7); Neutrophils Percent Auto 71.1 % (45.5-73.1); Platelet Count Result 191 k/mm3 (150-375); Red Blood Count 3.89 M/mm3 (4.6-6.20); Red Cell Distribution Width 13.3 % (11.5-14.5); White Blood Count 9.2 K/mm3 (4.5-10.0)
[2023-06-18 09:32] LABS: Alanine Aminotransferase 13 U/L (6-50); Albumin Level 4.3 g/dL (3.5-5.1); Alkaline Phosphatase 53 U/L (38-126); Anion Gap 5 mmol/L (8-16); Aspartate Amino Transferase 22 U/L (17-59); Bilirubin,Total 0.8 mg/dL (0.2-1.3); Blood Urea Nitrogen 25 mg/dL (9-20); Calcium 9.5 mg/dL (8.4-10.2); Carbon Dioxide 31 mmol/L (22-30); Chloride 103 mmol/L (98-107); Cholesterol 125 mg/dL (0-200); Estimated Glomerular Filt Rate 48; Glucose 92 mg/dL (65-110); HDL Direct 51 mg/dL; Sodium 139 mmol/L (137-145); Triglycerides 121 mg/dL (<150)
[2023-06-18 09:55] LABS: LDL Cholesterol Direct 55 mg/dL
[2023-06-18 10:02] LABS: Prostate Specific Antigen 0.6 ng/mL (< OR = 4.0)
== END 2023-06-18 08:38 | disposition home or self-care (01) ==
PROVIDERS: PCP Internal Medicine Rheumatology
DX: D64.9 Anemia, unspecified (principal); I10 Essential (primary) hypertension; Z12.5 Encounter for screening for malignant neoplasm of prostate; E78.2 Mixed hyperlipidemia; R53.83 Other fatigue
CPT/HCPCS: 36415; 80053; 80061; 84153; 84443; 85025; G0103

== ENCOUNTER 2023-11-20 15:27 | Outpatient (CLI) | payer MEDICARE, SELFPAY ==
[2023-11-20 16:48] LABS: Basophils Absolute Auto 0.1 K/mm3 (0.0-0.1); Basophils Percent Auto 0.9 % (0.2-1.2); Eosinophils Absolute Auto 0.3 K/mm3 (0-0.3); Eosinophils Percent Auto 3.6 % (0-4.4); Hematocrit 41.7 % (42.0-52.0); Hemoglobin 13.6 g/dL (14.0-18.0); Immature Granulocyte Absolute 0.03 K/mm3 (0.00-0.031); Immature Granulocyte Percent A 0.4 % (0-0.5); Lymphocytes Absolute Auto 1.96 K/mm3 (0.9-3.2); Lymphocytes Percent Auto 28.2 % (18.3-44.2); Mean Corpuscular HGB Conc 32.6 g/dl (32-36); Mean Corpuscular Hemoglobin 31.9 pg (26-34); Mean Corpuscular Volume 97.9 fl (80-100); Mean Platelet Volume 9.8 fl (7.4-10.4); Monocytes Absolute Auto 0.5 K/mm3 (0.1-0.6); Monocytes Percent Auto 7.3 % (2.6-8.5); Neutrophils Absolute Auto 4.1 K/mm3 (1.3-6.7); Neutrophils Percent Auto 59.6 % (45.5-73.1); Platelet Count Result 191 k/mm3 (150-375); Red Blood Count 4.26 M/mm3 (4.6-6.20); White Blood Count 6.9 K/mm3 (4.5-10.0)
[2023-11-20 17:01] LABS: Alanine Aminotransferase 11 U/L (6-50); Albumin Level 4.1 g/dL (3.5-5.1); Alkaline Phosphatase 63 U/L (38-126); Anion Gap 6 mmol/L (4-12); Aspartate Amino Transferase 22 U/L (17-59); Blood Urea Nitrogen 19 mg/dL (9-20); CRP < 0.5 mg/dL (<1.0); Calcium 9.5 mg/dL (8.4-10.2); Carbon Dioxide 30 mmol/L (22-30); Chloride 103 mmol/L (98-107); Cholesterol 129 mg/dL (0-200); Estimated Glomerular Filt Rate 52; Glucose 92 mg/dL (65-110); HDL Direct 45 mg/dL; Potassium 4.1 mmol/L (3.4-5.0); Sodium 139 mmol/L (137-145); Triglycerides 94 mg/dL (<150)
[2023-11-20 17:10] LABS: LDL Cholesterol Direct 64 mg/dL
[2023-11-20 17:27] LABS: Erythrocyte Sedimentation Rate 11 mm/hr (0-20)
[2023-11-20 17:29] LABS: Prostate Specific Antigen 0.7 ng/mL (< OR = 4.0)
== END 2023-11-20 15:28 | disposition home or self-care (01) ==
PROVIDERS: PCP Internal Medicine Rheumatology; Referring Provider Internal Medicine Rheumatology
DX: R53.83 Other fatigue (principal); I10 Essential (primary) hypertension; D64.9 Anemia, unspecified; N28.9 Disorder of kidney and ureter, unspecified; Z12.5 Encounter for screening for malignant neoplasm of prostate; E78.2 Mixed hyperlipidemia
CPT/HCPCS: 36415; 80053; 80061; 84153; 84443; 85025; 85652; 86140; G0103

== ENCOUNTER 2024-01-29 14:25 | Outpatient (CLI) | payer MEDICARE, SELFPAY ==
[2024-01-29 15:47] LABS: Hematocrit 38.1 % (42.0-52.0); Hemoglobin 12.5 g/dL (14.0-18.0); Mean Corpuscular HGB Conc 32.8 g/dl (32-36); Mean Corpuscular Volume 97.4 fl (80-100); Mean Platelet Volume 10.3 fl (7.4-10.4); Platelet Count Result 163 k/mm3 (150-375); Red Blood Count 3.91 M/mm3 (4.6-6.20); Red Cell Distribution Width 13.4 % (11.5-14.5); White Blood Count 6.2 K/mm3 (4.5-10.0)
[2024-01-29 15:59] LABS: Alanine Aminotransferase 14 U/L (6-50); Albumin Level 4.3 g/dL (3.5-5.1); Alkaline Phosphatase 56 U/L (38-126); Anion Gap 7 mmol/L (4-12); Aspartate Amino Transferase 21 U/L (17-59); Bilirubin,Total 0.8 mg/dL (0.2-1.3); Blood Urea Nitrogen 19 mg/dL (9-20); CRP < 0.5 mg/dL (<1.0); Calcium 9.3 mg/dL (8.4-10.2); Carbon Dioxide 26 mmol/L (22-30); Chloride 104 mmol/L (98-107); Estimated Glomerular Filt Rate 48; Glucose 97 mg/dL (65-110); Sodium 137 mmol/L (137-145)
[2024-01-29 16:55] LABS: Erythrocyte Sedimentation Rate 12 mm/hr (0-20)
== END 2024-01-29 14:26 | disposition home or self-care (01) ==
LOC: ANHLAB 14:32
PROVIDERS: PCP Internal Medicine Rheumatology; Visit Provider Internal Medicine Rheumatology
DX: M05.9 Rheumatoid arthritis with rheumatoid factor, unspecified (principal)
CPT/HCPCS: 36415; 80053; 85027; 85652; 86140

== ENCOUNTER 2024-04-02 08:43 | Outpatient (CLI) | payer MEDICARE, SELFPAY ==
[2024-04-02 09:42] LABS: Hematocrit 39.4 % (42.0-52.0); Hemoglobin 13.1 g/dL (14.0-18.0); Mean Corpuscular HGB Conc 33.2 g/dl (32-36); Mean Corpuscular Hemoglobin 32.8 pg (26-34); Mean Corpuscular Volume 98.7 fl (80-100); Mean Platelet Volume 9.5 fl (7.4-10.4); Platelet Count Result 198 k/mm3 (150-375); Red Blood Count 3.99 M/mm3 (4.6-6.20); Red Cell Distribution Width 13.2 % (11.5-14.5); White Blood Count 5.4 K/mm3 (4.5-10.0)
[2024-04-02 10:32] LABS: Alanine Aminotransferase 13 U/L (6-50); Albumin Level 4.2 g/dL (3.5-5.1); Alkaline Phosphatase 52 U/L (38-126); Anion Gap 10 mmol/L (4-12); Aspartate Amino Transferase 26 U/L (17-59); Bilirubin,Total 1.5 mg/dL (0.2-1.3); Blood Urea Nitrogen 25 mg/dL (9-20); CRP < 0.5 mg/dL (<1.0); Calcium 9.2 mg/dL (8.4-10.2); Carbon Dioxide 28 mmol/L (22-30); Chloride 100 mmol/L (98-107); Estimated Glomerular Filt Rate 52; Glucose 98 mg/dL (65-110); Potassium 4.6 mmol/L (3.4-5.0); Sodium 138 mmol/L (137-145)
[2024-04-02 12:06] LABS: Erythrocyte Sedimentation Rate 18 mm/hr (0-20)
== END 2024-04-02 08:44 | disposition home or self-care (01) ==
PROVIDERS: PCP Internal Medicine Rheumatology; Visit Provider Internal Medicine Rheumatology
DX: M05.9 Rheumatoid arthritis with rheumatoid factor, unspecified (principal)
CPT/HCPCS: 36415; 80053; 85027; 85652; 86140

== ENCOUNTER 2024-07-30 09:46 | Outpatient (CLI) | payer MEDICARE, SELFPAY ==
[2024-07-30 10:14] LABS: Basophils Absolute Auto 0.1 K/mm3 (0.0-0.1); Eosinophils Absolute Auto 0.3 K/mm3 (0-0.3); Eosinophils Percent Auto 4.5 % (0-4.4); Hematocrit 40.2 % (42.0-52.0); Hemoglobin 13.4 g/dL (14.0-18.0); Immature Granulocyte Absolute 0.02 K/mm3 (0.00-0.031); Immature Granulocyte Percent A 0.3 % (0-0.5); Lymphocytes Absolute Auto 1.82 K/mm3 (0.9-3.2); Lymphocytes Percent Auto 31.6 % (18.3-44.2); Mean Corpuscular HGB Conc 33.3 g/dl (32-36); Mean Corpuscular Hemoglobin 31.6 pg (26-34); Mean Corpuscular Volume 94.8 fl (80-100); Mean Platelet Volume 9.4 fl (7.4-10.4); Monocytes Absolute Auto 0.6 K/mm3 (0.1-0.6); Monocytes Percent Auto 10.6 % (2.6-8.5); Platelet Count Result 187 k/mm3 (150-375); Red Blood Count 4.24 M/mm3 (4.6-6.20); Red Cell Distribution Width 12.4 % (11.5-14.5); White Blood Count 5.8 K/mm3 (4.5-10.0)
[2024-07-30 10:31] LABS: Alanine Aminotransferase 16 U/L (6-50); Albumin Level 4.1 g/dL (3.5-5.1); Alkaline Phosphatase 64 U/L (38-126); Anion Gap 5 mmol/L (4-12); Aspartate Amino Transferase 26 U/L (17-59); Bilirubin,Total 0.9 mg/dL (0.2-1.3); Blood Urea Nitrogen 23 mg/dL (9-20); CRP < 0.5 mg/dL (<1.0); Calcium 9.3 mg/dL (8.4-10.2); Carbon Dioxide 28 mmol/L (22-30); Chloride 104 mmol/L (98-107); Estimated Glomerular Filt Rate 48; Glucose 94 mg/dL (65-110); Potassium 4.1 mmol/L (3.4-5.0); Sodium 137 mmol/L (137-145)
[2024-07-30 11:04] LABS: Erythrocyte Sedimentation Rate 16 mm/hr (0-20)
== END 2024-07-30 09:47 | disposition home or self-care (01) ==
LOC: ANHLAB 09:49
PROVIDERS: Visit Provider Internal Medicine Rheumatology
DX: Z79.899 Other long term (current) drug therapy (principal)
CPT/HCPCS: 36415; 80053; 85025; 85652; 86140

== ENCOUNTER 2024-08-31 16:17 | Emergency (ER) | payer MEDICARE, SELFPAY ==
--- NOTE | ~2024-08-31 | XR_ITS ---
CHEST RADIOGRAPH, PA AND LATERAL CLINICAL HISTORY: URI . COMPARISON: Reference is made to a CT examination of the chest dated 06/25/2019 TECHNIQUE: PA and lateral views of the chest. FINDINGS The cardiomediastinal silhouette is unremarkable. Calcified granuloma within the right mid to upper lung field. The lungs are otherwise clear. Visualized osseous structures and soft tissues are unremarkable. IMPRESSION: No focal infiltrate or effusion. Reviewed, dictated and finalized at location A. ZLYMAN
[2024-08-31 16:19] VITALS: O2SAT 97
[2024-08-31 16:20] VITALS: BP 122/62; PULSE 75; RESP 18; TEMP 36.3; O2SAT 93
--- NOTE | 2024-08-31 16:24 | ECG_ITS ---
Test Date: 2024-08-31 16:31:44 Measurements Intervals [place] Rate: 65 P: 77 ME: 195 QRS: -46 QRSD: 95 T: 51 QT: 427 QTc: 444 Interpretive Statements SINUS RHYTHM INCOMPLETE RIGHT BUNDLE BRANCH BLOCK [90+ ms QRS DURATION, TERMINAL R IN V1/V2, 40+ ms S IN I/aVL/V4/V5/V6] LEFT ANTERIOR FASCICULAR BLOCK [QRS AXIS <= -45, QR IN I, RS IN II] MINIMAL VOLTAGE CRITERIA FOR LVH, CONSIDER NORMAL VARIANT [MEETS CRITERIA IN ONE OF: R(aVL), S(V1), R(V5), R(V5/V6)+S(V1)] No previous ECG available for comparison Electronically Signed On 09-03-2024 16:48:22 [employer] REPRES[employer]IVE by Mattie Henderson M.D.
[2024-08-31 16:38] VITALS: O2SAT 94
[2024-08-31 16:40] VITALS: BP 104/83; PULSE 57; RESP 18; O2SAT 94
[2024-08-31 16:53] LABS: Basophils Percent Auto 0.2 % (0.2-1.2); Eosinophils Absolute Auto 0.1 K/mm3 (0-0.3); Hematocrit 38.7 % (42.0-52.0); Hemoglobin 13.4 g/dL (14.0-18.0); Immature Granulocyte Absolute 0.02 K/mm3 (0.00-0.031); Immature Granulocyte Percent A 0.2 % (0-0.5); Lymphocytes Absolute Auto 2.06 K/mm3 (0.9-3.2); Mean Corpuscular HGB Conc 34.6 g/dl (32-36); Mean Corpuscular Hemoglobin 32.1 pg (26-34); Mean Corpuscular Volume 92.6 fl (80-100); Mean Platelet Volume 9.6 fl (7.4-10.4); Monocytes Percent Auto 11.9 % (2.6-8.5); Neutrophils Absolute Auto 5.4 K/mm3 (1.3-6.7); Neutrophils Percent Auto 62.7 % (45.5-73.1); Platelet Count Result 153 k/mm3 (150-375); Red Blood Count 4.18 M/mm3 (4.6-6.20); Red Cell Distribution Width 13.2 % (11.5-14.5); White Blood Count 8.6 K/mm3 (4.5-10.0)
[2024-08-31 17:10] LABS: Alanine Aminotransferase 15 U/L (6-50); Albumin Level 3.9 g/dL (3.5-5.1); Alkaline Phosphatase 65 U/L (38-126); Anion Gap 5 mmol/L (4-12); Aspartate Amino Transferase 24 U/L (17-59); Bilirubin,Total 0.7 mg/dL (0.2-1.3); Blood Urea Nitrogen 46 mg/dL (9-20); Calcium 8.8 mg/dL (8.4-10.2); Carbon Dioxide 29 mmol/L (22-30); Chloride 98 mmol/L (98-107); Estimated CRCL calculation 21 ml/min; Estimated Glomerular Filt Rate 34; Glucose 106 mg/dL (65-110); Magnesium 2.5 mg/dL (1.6-2.3); Potassium 3.9 mmol/L (3.4-5.0); Sodium 132 mmol/L (137-145)
[2024-08-31 17:27] LABS: Influenza A QL RT-PCR Negative (Negative); Influenza B QL RT-PCR Negative (Negative); RSV RNA, RT-PCR Positive (Negative); SARS-CoV-2 RNA PCR Negative (Negative)
[2024-08-31] MEDS: LACTATED RINGERS 1,000 ML 999 ML IV CONT (17:43)
[2024-08-31 18:01] VITALS: BP 127/66; PULSE 65; RESP 18; TEMP 36.7; O2SAT 98
--- NOTE | 2024-08-31 20:26 | ED_ITS ---
HPI - Weakness General Chief complaint: Weakness Stated complaint: URI, weak Time Seen by Provider: 08/31/24 16:24 History of Present Illness HPI Narrative: 89-year-old male presenting to the emergency department for evaluation of upper respiratory infection symptoms, shortness of breath, generalized weakness for last week. He endorses a productive cough, denies any fever, chills and denies any pain. No chest pain or pressure. He states he is otherwise in his normal state of health. Patient is accompanied by his son who provides the majority collateral formation. Patient has a significant history including rheumatoid arthritis, hypertension prior cerebrovascular accident with residual speech deficits. No recent injuries or illnesses. He is not any sick contacts to their knowledge. Related Data Allergies Allergy/AdvReac Type Severity Reaction Status Date / Time cephalexin Allergy Severe ANAPHALYTIC Verified 02/05/23 11:59 Penicillins Allergy Severe RASH Verified 02/05/23 11:59 sulfamethoxazole Allergy Severe RASH Verified 02/05/23 11:59 trimethoprim Allergy Severe RASH Verified 02/05/23 11:59 Review of Systems 2 Review of Systems: As reviewed [facility] HPI [facility] Past Medical History Medical History BPH (benign prostatic hyperplasia) Rheumatoid arthritis CVA (cerebral vascular accident) Hypertension Surgical History Surgical History No pertinent past surgical history Exam 2 Narrative: GENERAL: [Well-appearing, well-nourished, and in no acute distress.] HEAD: [Normocephalic, atraumatic.] EYES: [PERRLA and EOMI.] ENT: Nares clear, no rhinorrhea or epistaxis. Mucous membranes slightly dry. NECK: Supple. CHEST: Clear breath sounds, no respiratory distress or tachypnea, no accessory muscle use. Coughs infrequently during the exam. HEART: [Regular rate and rhythm]. No murmur heard. [Normal peripheral pulses.] ABDOMEN: [Soft, nondistended], [nontender], [No rigidity or guarding] EXTREMITIES: Normal range of motion. [No edema.] SKIN: Warm, dry, no rash. NEURO: [No focal deficits]. Alert and oriented [x3.] PSYCH: [Normal mood and affect.] Course Vital Signs Vital signs: Vital Signs Pulse Oximetry 97 08/31/24 16:19 Oxygen Delivery Room Air 08/31/24 16:19 Temperature 36.7 C 08/31/24 18:01 Pulse Rate 65 08/31/24 18:01 Respiratory Rate 18 08/31/24 18:01 Blood Pressure 127/66 08/31/24 18:01 Pulse Oximetry 98 08/31/24 18:01 Oxygen Delivery Room Air 08/31/24 16:20 MDM - Weakness MDM Narrative Medical decision making narrative: 89-year-old male with a history of hypertension, CKD, prior stroke with some residual speech deficits, rheumatoid arthritis. Presents to the emergency department with complaints of upper respiratory infection symptoms including productive cough, intermittent shortness of breath and weakness. Symptoms going on for 1 week. He is otherwise well-appearing not in any acute distress and is awake alert oriented. Vital signs are all within normal limits without any tachycardia, fever, hypoxia blood pressure concerns. He is not labored in his breathing and has clear breath sounds throughout. Considerations presently are for upper respiratory infection, viral illness, COVID, flu, influenza, pneumonia. Low suspicion other process but given his generalized weakness we will obtain laboratory studies including CBC and CMP to evaluate for any electrolyte disturbances or evidence of dehydration. Has provided hydration with 1 L likely Ringer bolus. No leukocytosis or anemia identified. He does have a slight elevation in his chronic CKD based on previous creatinine levels indicative of an MELISSA. LFTs within normal limits. Test was positive for RSV, negative for influenza and COVID. Chest x-ray shows no acute cardiopulmonary process. Discussed with the patient his laboratory results and imaging studies. I discussed the MELISSA and the RSV diagnosis. Patient did receive hydration here and is tolerating p.o. intake and did have improvement in his symptoms. The family felt comfortable with patient going home for oral hydration and monitoring rather than admission to the hospital. This is appropriate given patient's normal vital signs, largely unremarkable workup aside from his slight dehydration. He was given return precautions and expected management instructions for his RSV. Patient and family verbalized understanding and was safe for discharge at this time. Medical Records Attestation: I reviewed the patient's medical records. Lab Data Attestation: I reviewed the patient's lab results. 08/31/24 16:39 08/31/24 16:39 Labs: Lab Results 0108/31/24 08/31/24 Range/Units 16:39 16:39 16:39 WBC 8.6 (4.5-10.0) K/mm3 RBC 4.18 L (4.6-6.20) M/mm3 Hgb 13.4 L (14.0-18.0) g/dL Hct 38.7 L (42.0-52.0) % MCV 92.6 (80-100) fl MCH 32.1 (26-34) pg MCHC 34.6 (32-36) g/dl RDW 13.2 (11.5-14.5) % Plt Count 153 (150-375) k/mm3 MPV 9.6 (7.4-10.4) fl Immature Gran % (Auto) 0.2 (0-0.5) % Neut % (Auto) 62.7 (45.5-73.1) % Lymph % (Auto) 24.0 (18.3-44.2) % [place] % (Auto) 11.9 H (2.6-8.5) % Eos % (Auto) 1.0 (0-4.4) % Baso % (Auto) 0.2 (0.2-1.2) % Lymph # (Auto) 2.06 (0.9-3.2) K/mm3 [place] # (Auto) 1.0 H (0.1-0.6) K/mm3 Eos # (Auto) 0.1 (0-0.3) K/mm3 Baso # (Auto) 0.0 (0.0-0.1) K/mm3 Abs Immat Gran (auto) 0.02 (0.00-0.031) K/mm3 Absolute Neuts (auto) 5.4 (1.3-6.7) K/mm3 Absolute Nucleated RBC 0.000 (0.0-0.012) K/mm3 Nucleated RBC % 0.0 (0.0-0.2) % Sodium Cancelled 132 L Potassium Cancelled 3.9 Chloride Cancelled Carbon Dioxide Anion Gap BUN Creatinine Estim Creat Clear Calc Estimated GFR Glucose Calcium Magnesium (1.6-2.3) mg/dL Total Bilirubin AST ALT Alkaline Phosphatase Total Protein Albumin Influenza A (RT-PCR) (Negative) Influenza B (RT-PCR) (Negative) RSV (RT-PCR) (Negative) SARS-CoV-2 RNA (RT-PCR) (Negative) 08/31/24 08/31/24 08/31/24 Range/Units 16:39 16:39 16:39 WBC (4.5-10.0) K/mm3 RBC (4.6-6.20) M/mm3 Hgb (14.0-18.0) g/dL Hct (42.0-52.0) % MCV (80-100) fl MCH (26-34) pg MCHC (32-36) g/dl RDW (11.5-14.5) % Plt Count (150-375) k/mm3 MPV (7.4-10.4) fl Immature Gran % (Auto) (0-0.5) % Neut % (Auto) (45.5-73.1) % Lymph % (Auto) (18.3-44.2) % [place] % (Auto) (2.6-8.5) % Eos % (Auto) (0-4.4) % Baso % (Auto) (0.2-1.2) % Lymph # (Auto) (0.9-3.2) K/mm3 [place] # (Auto) (0.1-0.6) K/mm3 Eos # (Auto) (0-0.3) K/mm3 Baso # (Auto) (0.0-0.1) K/mm3 Abs Immat Gran (auto) (0.00-0.031) K/mm3 Absolute Neuts (auto) (1.3-6.7) K/mm3 Absolute Nucleated RBC (0.0-0.012) K/mm3 Nucleated RBC % (0.0-0.2) % Sodium Potassium Chloride 98 Carbon Dioxide Cancelled 29 Anion Gap Cancelled 5 BUN Cancelled Creatinine Estim Creat Clear Calc Estimated GFR Glucose Calcium Magnesium (1.6-2.3) mg/dL Total Bilirubin AST ALT Alkaline Phosphatase Total Protein Albumin Influenza A (RT-PCR) (Negative) Influenza B (RT-PCR) (Negative) RSV (RT-PCR) (Negative) SARS-CoV-2 RNA (RT-PCR) (Negative) 08/31/24 08/31/24 08/31/24 Range/Units 16:39 16:39 16:39 WBC (4.5-10.0) K/mm3 RBC (4.6-6.20) M/mm3 Hgb (14.0-18.0) g/dL Hct (42.0-52.0) % MCV (80-100) fl MCH (26-34) pg MCHC (32-36) g/dl RDW (11.5-14.5) % Plt Count (150-375) k/mm3 MPV (7.4-10.4) fl Immature Gran % (Auto) (0-0.5) % Neut % (Auto) (45.5-73.1) % Lymph % (Auto) (18.3-44.2) % [place] % (Auto) (2.6-8.5) % Eos % (Auto) (0-4.4) % Baso % (Auto) (0.2-1.2) % Lymph # (Auto) (0.9-3.2) K/mm3 [place] # (Auto) (0.1-0.6) K/mm3 Eos # (Auto) (0-0.3) K/mm3 Baso # (Auto) (0.0-0.1) K/mm3 Abs Immat Gran (auto) (0.00-0.031) K/mm3 Absolute Neuts (auto) (1.3-6.7) K/mm3 Absolute Nucleated RBC (0.0-0.012) K/mm3 Nucleated RBC % (0.0-0.2) % Sodium Potassium Chloride Carbon Dioxide Anion Gap BUN 46 H D Creatinine Cancelled 1.90 H Estim Creat Clear Calc Cancelled 21 Estimated GFR Cancelled Glucose Calcium Magnesium (1.6-2.3) mg/dL Total Bilirubin AST ALT Alkaline Phosphatase Total Protein Albumin Influenza A (RT-PCR) (Negative) Influenza B (RT-PCR) (Negative) RSV (RT-PCR) (Negative) SARS-CoV-2 RNA (RT-PCR) (Negative) 08/31/24 08/31/24 08/31/24 Range/Units 16:39 16:39 16:39 WBC (4.5-10.0) K/mm3 RBC (4.6-6.20) M/mm3 Hgb (14.0-18.0) g/dL Hct (42.0-52.0) % MCV (80-100) fl MCH (26-34) pg MCHC (32-36) g/dl RDW (11.5-14.5) % Plt Count (150-375) k/mm3 MPV (7.4-10.4) fl Immature Gran % (Auto) (0-0.5) % Neut % (Auto) (45.5-73.1) % Lymph % (Auto) (18.3-44.2) % [place] % (Auto) (2.6-8.5) % Eos % (Auto) (0-4.4) % Baso % (Auto) (0.2-1.2) % Lymph # (Auto) (0.9-3.2) K/mm3 [place] # (Auto) (0.1-0.6) K/mm3 Eos # (Auto) (0-0.3) K/mm3 Baso # (Auto) (0.0-0.1) K/mm3 Abs Immat Gran (auto) (0.00-0.031) K/mm3 Absolute Neuts (auto) (1.3-6.7) K/mm3 Absolute Nucleated RBC (0.0-0.012) K/mm3 Nucleated RBC % (0.0-0.2) % Sodium Potassium Chloride Carbon Dioxide Anion Gap BUN Creatinine Estim Creat Clear Calc Estimated GFR 34 L Glucose Cancelled 106 Calcium Cancelled 8.8 Magnesium 2.5 H (1.6-2.3) mg/dL Total Bilirubin Cancelled AST ALT Alkaline Phosphatase Total Protein Albumin Influenza A (RT-PCR) (Negative) Influenza B (RT-PCR) (Negative) RSV (RT-PCR) (Negative) SARS-CoV-2 RNA (RT-PCR) (Negative) 08/31/24 08/31/24 08/31/24 Range/Units 16:39 16:39 16:39 WBC (4.5-10.0) K/mm3 RBC (4.6-6.20) M/mm3 Hgb (14.0-18.0) g/dL Hct (42.0-52.0) % MCV (80-100) fl MCH (26-34) pg MCHC (32-36) g/dl RDW (11.5-14.5) % Plt Count (150-375) k/mm3 MPV (7.4-10.4) fl Immature Gran % (Auto) (0-0.5) % Neut % (Auto) (45.5-73.1) % Lymph % (Auto) (18.3-44.2) % [place] % (Auto) (2.6-8.5) % Eos % (Auto) (0-4.4) % Baso % (Auto) (0.2-1.2) % Lymph # (Auto) (0.9-3.2) K/mm3 [place] # (Auto) (0.1-0.6) K/mm3 Eos # (Auto) (0-0.3) K/mm3 Baso # (Auto) (0.0-0.1) K/mm3 Abs Immat Gran (auto) (0.00-0.031) K/mm3 Absolute Neuts (auto) (1.3-6.7) K/mm3 Absolute Nucleated RBC (0.0-0.012) K/mm3 Nucleated RBC % (0.0-0.2) % Sodium Potassium Chloride Carbon Dioxide Anion Gap BUN Creatinine Estim Creat Clear Calc Estimated GFR Glucose Calcium Magnesium (1.6-2.3) mg/dL Total Bilirubin 0.7 AST Cancelled 24 ALT Cancelled 15 Alkaline Phosphatase Cancelled Total Protein Albumin Influenza A (RT-PCR) (Negative) Influenza B (RT-PCR) (Negative) RSV (RT-PCR) (Negative) SARS-CoV-2 RNA (RT-PCR) (Negative) 08/31/24 08/31/24 08/31/24 Range/Units 16:39 16:39 16:39 WBC (4.5-10.0) K/mm3 RBC (4.6-6.20) M/mm3 Hgb (14.0-18.0) g/dL Hct (42.0-52.0) % MCV (80-100) fl MCH (26-34) pg MCHC (32-36) g/dl RDW (11.5-14.5) % Plt Count (150-375) k/mm3 MPV (7.4-10.4) fl Immature Gran % (Auto) (0-0.5) % Neut % (Auto) (45.5-73.1) % Lymph % (Auto) (18.3-44.2) % [place] % (Auto) (2.6-8.5) % Eos % (Auto) (0-4.4) % Baso % (Auto) (0.2-1.2) % Lymph # (Auto) (0.9-3.2) K/mm3 [place] # (Auto) (0.1-0.6) K/mm3 Eos # (Auto) (0-0.3) K/mm3 Baso # (Auto) (0.0-0.1) K/mm3 Abs Immat Gran (auto) (0.00-0.031) K/mm3 Absolute Neuts (auto) (1.3-6.7) K/mm3 Absolute Nucleated RBC (0.0-0.012) K/mm3 Nucleated RBC % (0.0-0.2) % Sodium Potassium Chloride Carbon Dioxide Anion Gap BUN Creatinine Estim Creat Clear Calc Estimated GFR Glucose Calcium Magnesium (1.6-2.3) mg/dL Total Bilirubin AST ALT Alkaline Phosphatase 65 Total Protein Cancelled 7.0 Albumin Cancelled 3.9 Influenza A (RT-PCR) Negative (Negative) Influenza B (RT-PCR) Negative (Negative) RSV (RT-PCR) Positive A (Negative) SARS-CoV-2 RNA (RT-PCR) Negative (Negative) Imaging Data Attestation: I personally reviewed and interpreted this imaging study as follows: My impression: Impressions Chest X-Ray 08/31/24 17:34 IMPRESSION: No focal infiltrate or effusion. Discharge Plan Discharge Clinical Impression: Respiratory syncytial virus (RSV), URI (upper respiratory infection), Acute kidney injury superimposed on chronic kidney disease Patient Disposition: Home, Self-Care Condition: Stable Instructions: Antibiotic Form, Acute Kidney Injury (DC), Upper Respiratory Infection (ED), RSV (Respiratory Syncytial Virus) Infection (ED) Additional Instructions: He did test positive for RSV which is a viral upper respiratory infection. You do not have any kind of pneumonia. Please continue hydrating and eating and drinking appropriately, you have some minor kidney injury on top of your chronic kidney disease. Follow-up with your regular primary care provider, return with any new or worsening concerns such as decreased p.o. intake, increased lethargy, fevers, respiratory distress or any other concerns. Patient Language: [place] Prescriptions: No Action ondansetron 4 mg tablet,disintegrating 4 mg PO Q6H PRN (Reason: nausea and vomiting) Qty: 10 0RF Follow-up/Referrals: UNKNOWN,DOCTOR [Primary Care Provider] - Time of Disposition: 17:59
--- OUTSIDE RECORDS SUMMARY | 2024-09-07 07:13 | XMS_ITS | Data Portability ---
Author Organization [facility], [address] [facility] ([place]) Address [address] [place] [address] Care Team Providers Care Talent Acquisition Manager Name Role Phone KRISTIN CEDENO Primary Care Provider LUISITO CEDENO Referring Provider [phone] Assessment Encounter Date Assessment Date Assessment LastModified by Organization Details LastModified Time 02/07/2024 02/07/2024 IMPRESSION: 1. 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 2. Osteoarthritis. 3. Chronic kidney disease stage 3. PLAN: 1. Advised the patient that when he is outside, especially golfing when he will tend to sweat a lot in the extreme heat, he should hydrate well with consumption of 100 ounces of water daily. We reviewed the signs and symptoms of heat stroke and he is to get inside immediately if he experiences even the earliest signs of heat stroke. 2. Continue current methotrexate and folate dosing. 3. DMARD labs to continue every 4-5 months for recheck. 4. Followup visit in 6 months. [email or web address] Not available 02/07/2024 13:06:24 08/07/2024 08/07/2024 IMPRESSION: 1. Seropositive RA. 2. Osteoarthritis. 3. Chronic kidney disease stage 3. PLAN: 1. Continue current low dose methotrexate and folate therapy. 2. Prednisone 1 mg tablets 3 tablets daily for 3 days only as needed for flares. 3. Followup visit in 6 months though he will have repeat DMARD labs in 4 months. karen Not available 08/07/2024 13:25:11 Plan of Treatment Reminders Order Date Submit Date Provider Last Modified By Organization Details Last Modified Time Details Appointments Establish ed Patient 15.EST 2024 08:00A M Dr. Darvin Santos Not available Not available Not available Lab CBC 2023 024 [facility], [address] [place] [address], [id number], 04/02/2024 15:43:30 CMP, serum or plasma 2023 024 [facility], [address] [place] [address], [id number], 04/02/2024 12:15:10 ESR (erythroc yte sedimenta tion rate), blood 2023 024 [email or web address], [address] [place] [address], [id number], 05/21/2024 14:22:09 unlisted lab - CRP ([facility]) 2023 024 [email or web address] [facility], [address] [place] [address], [id number], 05/21/2024 14:22:09 Referral None recorded. Procedures None recorded. Surgeries None recorded. Imaging None recorded. Medication Orders None recorded. Patient TargetsNo targets recorded. Patient InstructionsNo instructions recorded. Reason for Referral None Reported. Results Created Date Observation Date Name Description Value Unit Range Abnormal Flag Note LastModifiedBy Organization Detail LastModifiedTime Result Notes None recorded. Problems Name Problem SNOMED Code Status Onset Date Resolution Date Notes Provider Name and Address Organization Details Recorded Time Seropositive rheumatoid arthritis 907890120 Active 2023 Melquiades Maria [facility] 4 09:30:43 Osteoarthritis 502739903 [facility]23 [facility] 4 12:45:01 Chronic kidney disease stage 3 523029237 Active 2023 Katie Cheema [facility] 4 12:45:08 Problem Notes None recorded. Procedures Surgical History Date Name Laterality Status Provider Name and Address Organization Details Recorded Time Appendectomy completed Not Available Health Note 02/05/2024 22:02:39 Imaging Results None recorded. Procedure Notes None recorded. Medical Equipment None Reported. Allergies Allergen ID Allergen Name Allergen Category Reaction Reaction Severity Criticality Documentation Date Start Date Code Code System Note Provider Name and Address Organization Details Recorded Time [id number] 06900 Substance with sulfonami de structure and antibacte rial mechanism of action (substanc e) medicatio n hives Not available Not available 09/24/20232021 98067 8003 SNOMED React ion: Hives ; Not Available Not Available Not Available [id number] 29b50 cephalexi n medicatio n other Not available Not available 09/24/20232021 2231 RxNorm React ion: Unkno wn to Patie nt; Not Available Not Available Not Available [id number] 29b50 Medicinal product containin g penicilli n and acting as antibacte rial agent (product) medicatio n other Not available Not available 09/24/20232021 46602 05 SNOMED React ion: Unkno wn to Patie nt; Not Available Not Available Not Available Medications Name Sig Start Date Stop Date Status Note LastModified by Organization Details LastModified Time aspirin 325 mg tablet Take 1 tablet every day by oral route. active Not Available Not Available No t Available lisinopril 20 mg tablet TAKE (1) TABLET BY MOUTH EVERY DAY active Not Available Not Available No t Available alprazolam 0.25 mg tablet TAKE (1) TABLET BY MOUTH THREE TIMES DAILY active Not Available Not Available No t Available methotrexat e sodium 2.5 mg tablet ONCE WEEKLY, TAKE 4 TABLETS BY MOUTH active Not Available Not Available No t Available tamsulosin 0.4 mg capsule TAKE (1) CAPSULE BY MOUTH AT BEDTIME active Not Available Not Available No t Available prednisone 1 mg tablet TAKE (1) TABLET BY MOUTH DAILY active Not Available Not Available No t Available hydrocodone 7.5 mg-acetamin ophen 325 mg tablet TAKE (1) TABLET BY MOUTH FOUR TIMES DAILY NEEDED FOR PAIN active Not Available Not Available No t Available folic acid 1 mg tablet TAKE (2) TABLETS BY MOUTH EVERY DAY active Not Available Not Available No t Available hydrocortis one 2.5 % topical cream Apply TO affected AREA twice daily. active Not Available Not Available No t Available metoprolol succinate ER 25 mg tablet,exte nded release 24 hr TAKE (1) TABLET BY MOUTH DAILY active Not Available Not Available No t Available zolpidem 10 mg tablet TAKE (1) TABLET BY MOUTH AT BEDTIME active Not Available Not Available No t Available ondansetron 4 mg disintegrat ing tablet DISSOLVE (1) TABLET UNDER TONGUE EVERY 6 HOURS NEEDED FOR NAUSEA 01/30 completed Not Available Not Available Not Available Tylenol Extra Strength 500 mg tablet Take 2 tablets 3 times a day by oral route. active Not Available Not Available No t Available rosuvastati n 10 mg tablet TAKE (1) TABLET BY MOUTH DAILY active Not Available Not Available No t Available Vitals Date Recorded Body height Body mass index (BMI) Body weight Heart rate Oxygen saturation Oxygen saturation in Arterial blood by Pulse oximetry Systolic blood pressure Diastolic blood pressure Provider Name and Address Organization Details Last Updated DateTime 4 167.64 cm 22.3 kg/m2 68111.7 5 g 51 /min 97 % 97 % 120 mm[Hg] 70 mm[Hg] Katieammon Cheema [facility] 4 08:58:15 Date Recorded Body height Heart rate Oxygen saturation Oxygen saturation in Arterial blood by Pulse oximetry Systolic blood pressure Diastolic blood pressure Provider Name and Address Organization Details Last Updated DateTime 4 167.64 cm 61 /min 97 % 97 % 130 mm[Hg] 84 mm[Hg] Melquiades Alstonw [facility] 4 09:08:43 Social History Question Answer Notes LastModified by Organizat ion Details LastModified Time Do You Have An Advance Directive? Yes [email or web address] Information not available 02/05/2024 What Is Your Level Of Alcohol Consumption? None [email or web address] Information not available 02/05/2024 What Is Your Level Of Caffeine Consumption? Moderate [email or web address] Information not available 02/05/2024 What Is Your Code Status? DNR [email or web address] Information not available 02/05/2024 Are You Currently Employed? 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 Less Than 1 Time Per Week [email or web address] Information not available 02/05/2024 Do You Have A Medical Power Of Refrigeration Insulator? Yes [email or web address] Information not available 02/05/2024 What Was The Date Of Your Most Recent Tobacco Screening? 02/07/2024 [email or web address] Information not available 02/05/2024 What Is Your Relationship Status? [email or web address] Information not available 02/05/2024 Do You Use Any Illicit Or Recreational Drugs? No [email or web address] Information not available 02/05/2024 Sex: Unknown Functional Status Question Answer Note LastModified by Organization D etails LastModified Time What is your exercise level? None [email or web address] Information not available 02/05/2024 Mental Status None recorded. Family History Relationship Description Onset Age of this Age Resolved Age Notes LastModified by Organization Details LastModified Time Father No current problems or disability [email or web address] Not available 01/30 12:45:17 Mother No current problems or disability [email or web address] Not available 01/30 12:45:17 Unspecified Relation Hypercholest erolemia [email or web address] Not available 2023 22:02:39 Unspecified Relation Disorder of thyroid gland [email or web address] Not available 2023 22:02:39 Notes:Brother has pulmonary fibrosis Medical History Condition Response Attention-deficit Hyperactivity Disorder N High Blood Pressure Y Thyroid Problems N COPD N Depression N Anemia N Diabetes N Anxiety Disorder N Bleeding Disorder N Arthritis Y Hyperlipidemia Y Cancer N Stroke Y Asthma N Seizures N Heart Disease N Fibromyalgia N Osteoporosis N Kidney Disease N Past Encounters Encounter ID Performer Location Encounter Start Date Encounter Closed Date Diagnosis/Indication Diagnosis SNOMED-CT Code Diagnosis ICD10 Code Diagnosis Note [id number] Darvin Santos MD [facility] ([place]) [address] [facility] [place] [address] 02/07/2024 08:49:30 02/08/2024 21:12:41 Seropositive rheumatoid arthritis 482340677 M05.9 Osteoarthritis 920989434 M19.90 Chronic ki dney disease stage 3 118398392 N18.30 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 3820556995 9523260 M05.89 [facility] methotrexate user 1823314346 00 Z79.631 [id number] Darvin Santos MD [facility] ([place]) [address] [address] 08/07/2024 09:07:55 08/10/2024 04:58:03 Seropositive rheumatoid arthritis 754871522 M05.9 Osteoarthritis 304347884 M19.90 Chronic ki dney disease stage 3 017033553 N18.30 Health Concerns Section Related Observation LastModified by Organization Detai ls LastModified Time None Recorded Concern Status LastModified by Organization Details LastModified Time None Recorded Advance Directives Directive Y: Payers Encounter Date Sequence Insurance Name Policy Number Policy Mireles Covered Member ID Mireles Member ID Guarantor Name 02/07/2024 1 [place] Tanner Tolliver [id number] Tanner Tolliver 02/07/2024 2 [place] [id number] Tanner Tolliver [id number] Tanner Tolliver 08/07/2024 1 [place] Tanner Tolliver [id number] Tanner Tolliver 08/07/2024 2 [place] [id number] Tanner Tolliver [id number] Tanner Tolliver Notes Date Note Type Note Provider Name and Address Organization Details Recorded Time 02/07/2024 text/html The patient is a n 88-year-old, very pleasant gentleman, with seropositive RA and osteoarthritis, as well as chronic kidney disease stage 3, who is here today with his son. Her reports overall generally doing better since decreasing his methotrexate to 4 tablets a week. He will use his prednisone 1 mg daily only on a p.r.n. basis. His weight loss and anorexia has improved on the lower dose of methotrexate. He still consumes 2 meals a day, but keeps very active. He golfs for leisure and enjoys getting out in the yard and keeping active on his feet. He has had no falls or fractures since last visit. Today he rates his pain score a 0/10 on a scale. He is not currently experiencing any significant morning stiffness. I did review with the patient and his son today his labs from November 20, 2023, demonstrating persistent, but slightly improved chronic kidney disease stage 3, as well as improved anemia of chronic disease and normal acute phase reactants.jaycee Tanner Harmonis a 88 year oldmalepresenting for care. Darvin Santos MD [address] [place] [address], [phone], [facility] 2024 10:17:39 08/07/2024 text/html The patient is a n 89-year-old gentleman with seropositive RA and osteoarthritis, who is here today for a followup visit. He reports overall doing extremely well. He states he did forget a couple of doses of his methotrexate and he could tell as his joints began to flare, especially at the MCP joints in the fingers. Once he got back on it, within a couple of weeks the symptoms subsided. He has been using his prednisone 1 mg tablets only as needed. He has not had to take more than a few doses a month. Currently he rates his pain level a 0/10 on a scale with no morning stiffness. On further review of systems, he has had no fever, chills, skin rash, Raynaud? s symptoms, aphthous ulcers, cough, pleurisy, shortness of breath, chest pain or palpitations, GERD, melena or hematochezia, diarrhea or constipation. He did have labs on July 30, 2024, and these were reviewed with him today. They were essentially all within acceptable limits. He has chronic kidney disease stage 3, but it is stable along with mild anemia of chronic disease.karen Alvarez a 89 year oldmalepresenting for care. Darvin Santos MD [address] [place] [address], [phone], [facility] 08/10/2024 16:39:22
--- OUTSIDE RECORDS SUMMARY | 2024-09-07 07:13 | XMS_ITS | Continuity of Care Document ---
Author Organization [facility], [facility] ([place]) Address [address] [place] [address] Care Team Providers Care Anodiser Name Role Phone KRISTIN CEDENO Primary Care Provider [phone] LUISITO CEDENO Referring Provider Assessment Encounter Date Assessment Date Assessment LastModified by Organization Details LastModified Time 08/07/2024 08/07/2024 IMPRESSION: 1. Seropositive RA. 2. Osteoarthritis. 3. Chronic kidney disease stage 3. PLAN: 1. Continue current low dose methotrexate and folate therapy. 2. Prednisone 1 mg tablets 3 tablets daily for 3 days only as needed for flares. 3. Followup visit in 6 months though he will have repeat DMARD labs in 4 months. karen [email or web address] Not available 08/07/2024 13:25:11 Plan of Treatment Reminders Order Date Submit Date Provider Last Modified By Organization Details Last Modified Time Details Appointments Establish ed Patient 15.EST 2024 08:00A M Dr. Darvin Santos Not available Not available Not available Lab None recorded. Referral None recorded. Procedures None recorded. Surgeries None recorded. Imaging None recorded. Medication Orders None recorded. Patient TargetsNo targets recorded. Patient InstructionsNo instructions recorded. Reason for Referral None Reported. Problems Name Problem SNOMED Code Status Onset Date Resolution Date Notes Provider Name and Address Organization Details Recorded Time Seropositive rheumatoid arthritis 730635558 Active [address], [facility] 4 09:30:43 Osteoarthritis 694874980 [facility] 2023 [facility] 4 12:45:01 Chronic kidney disease stage 3 686433916 Active 2023 Katie Cheema [facility], [facility] 12:45:08 Problem Notes None recorded. Procedures Surgical [...] Name and Address Organization Details Recorded Time [id number] 05873 Substance with sulfonami de structure and antibacte rial mechanism of action (substanc e) medicatio n hives Not available Not available 09/24/20232021 39605 8003 SNOMED React ion: Hives ; Not Available Not Available Not Available [id number] 29b50 cephalexi n medicatio n other Not available Not available 09/24/20232021 2231 RxNorm React ion: Unkno wn to Patie nt; Not Available Not Available Not Available [id number] 29b50 Medicinal product containin g penicilli n and acting as antibacte rial agent (product) medicatio n other Not available Not available 09/24/20232021 27825 05 SNOMED React ion: Unkno wn to [...] t Available Vitals Date Recorded Body height Heart rate Oxygen saturation Oxygen saturation in Arterial blood by Pulse oximetry Systolic blood pressure Diastolic blood pressure Provider Name and Address Organization Details Last Updated DateTime 4 167.64 cm 61 /min 97 % 97 % 130 mm[Hg] 84 mm[Hg] [facility] 4 09:08:43 Social History Question Answer Notes [...] Do You Have A Medical Power Of Waiter Waitress? Yes [email or web address] Information not available 02/05/2024 What [...] Time What is your exercise level? None [email or web address] Information not available 02/05/2024 Mental Status None recorded. Family History Relationship Description Onset Age of this Age Resolved Age Notes LastModified by Organization Details LastModified Time Father No current problems or disability Not available 01/30 12:45:17 Mother No current problems or disability [email or web address] Not available 01/30 12:45:17 Unspecified Relation Hypercholest erolemia [email or web address] Not available 2023 22:02:39 Unspecified Relation Disorder of thyroid gland [email or web address] Not available 2023 22:02:39 Notes:Brother has pulmonary fibrosis Medical History Condition Response High Blood Pressure Y COPD N Depression N Anxiety Disorder N Arthritis Y Cancer N Stroke Y Fibromyalgia N Kidney Disease N Attention-deficit Hyperactivity Disorder N Thyroid Problems N Anemia N Diabetes N Bleeding Disorder N Hyperlipidemia Y Asthma N Seizures N Heart Disease N Osteoporosis N Past Encounters Encounter ID Performer Location Encounter Start Date Encounter Closed Date Diagnosis/Indication Diagnosis SNOMED-CT Code Diagnosis ICD10 Code Diagnosis Note [id number] Darvin Santos MD [facility] ([place]) [address] [place] [address] 08/07/2024 09:07:55 08/10/2024 04:58:03 Seropositive rheumatoid arthritis 664644103 M05.9 Osteoarthritis 946005728 M19.90 Chronic ki dney disease stage 3 673189632 N18.30 Health Concerns Section Related Observation LastModified by Organization Detai ls LastModified Time None Recorded Concern Status LastModified by Organization Details LastModified Time None Recorded Payers Encounter Date Sequence Insurance Name Policy Number Policy Mireles Covered Member ID Mireles Member ID Guarantor Name 08/07/2024 1 [place] Tanner Tolliver [id number] Tanner Tolliver 08/07/2024 2 [facility] [id number] Tanner Tolliver [id number] Tanner Tolliver Notes Date Note Type Note Provider Name and Address Organization Details Recorded Time 08/07/2024 text/html The patient is a n [...] along with mild anemia of chronic disease.karen Tolliveris a 89 year oldmalepresenting for care. Darvin Santos MD [address] [place] [address], [phone], [facility] 08/10/2024 16:39:22
--- OUTSIDE RECORDS SUMMARY | 2024-09-07 07:14 | XMS_ITS | Encounter Summary ---
Author Organization [facility] Address [address] [place] [address]. [place], [place] [address] [place] [address] Care Team Providers Care Multimedia Specialist Name Role Phone Unavailable Primary Care Provider Unavailabl e Encounter Details Date Type Department Care Team (Late st Contact Info) Description 10/24/[address] 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
--- OUTSIDE RECORDS SUMMARY | 2024-09-07 07:14 | XMS_ITS | Encounter Summary ---
Author Organization [facility] Address [address] [place] [address]. [place], [place] [address] [place] [address] Care Team Providers Care Shader And Toner Name Role Phone Unavailable Primary Care Provider Unavailabl e Encounter Details Date Type Department Care Team (Late st Contact Info) Description 10/17/[address] 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
--- OUTSIDE RECORDS SUMMARY | 2024-09-07 07:14 | XMS_ITS | Clinical Summary ---
Author Organization [facility] Address [address] [place] [address]. 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 Gender Identity Not on file Sexual Orientation Not on file Plan of Treatment Health Maintenance Due Date Last Done Comments DTaP, Tdap and Td Vaccines ( 1 - Tdap) 02[birth year]08/1954 Zoster Vaccines (1 of 2) 02/08/1986 Pneumococcal Vaccine: 65+ Ye ars (1 of 1 - PCV) 02/08/2001 RSV Immunization or 60+ Years (1 - 1-dose 75+ series) 02/08/2011 COVID-19 Vaccine ( - 2023-2 5 season) 2024 Influenza Adult (#1) 2024 Meningococcal Vaccine Aged Out No herminia zakia eligible based on patient's age to complete this topic RSV Immunizations Under 20 Months Aged Out No longer eligible based on patient's age to complete this topic
--- OUTSIDE RECORDS SUMMARY | 2024-09-07 07:21 | XMS_ITS | Referral Summary ---
Author Organization [facility] [address] [facility] [address] Address [address] [place] [address] Care Team Providers Care Raker Buffing Wheel Name Role Phone Angel HARPER MD, Jose G Hopson Primary Care Provider Encounters Date Type Department Care Team Description 08/15/2024 9:30 AM WEATHER STRIPPER Office Visit 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; Hypercholesteremia; Aortic root enlargement (CMS/HCC) (HCC); Aneurysm of 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 (HCC); Atherosclerotic DELLA (renal artery stenosis), bilateral (HCC) from Last 3 Months Allergies Active Allergy Reactions Criticality Noted Date Comments Cephalexin Vomiting Low 05/30/2017 Penicillins Vomiting Low 05/30/2017 Sulfamethizole Vomiting Low 05/30/2017 Trimethoprim Vomiting Low 05/30/2017 Medications ALPRAZolam (XANAX) 0.25 mg tablet Take 1 tablet (0.25 mg total) by mouth nightly as needed for anxiety Active HYDROcodone-acetami nophen (NORCO) 7.5-325 mg per tabletIndications:P ain Take 1 tablet by mouth every 6 (six) hours as needed for pain Active tamsulosin (FLOMAX) 0.4 mg capsule,extended release 24hr 1 capsule (0.4 mg total) Active zolpidem (AMBIEN) 5 mg tabletIndications:S leep-Onset Insomnia Take 1 tablet (5 mg total) by mouth nightly as needed for sleep Active aspirin 325 mg tablet Take 1 tablet (325 mg total) by mouth daily Active rosuvastatin (CRESTOR) 10 mg tablet Take 1 tablet (10 mg total) by mouth daily 8 Active lisinopriL (PRINIVIL,ZESTRIL) 20 mg tablet Take 1 tablet (20 mg total) by mouth daily Active metoprolol XL (TOPROL-XL) 25 mg extended release tablet TAKE (1) TABLET BY MOUTH EVERY DAY 1 Active methotrexate 2.5 mg tablet Take 4 tablets (10 mg total) by mouth every 7 days 1 Active folic acid (FOLVITE) 1 mg tablet 1 Active ondansetron ODT (ZOFRAN-ODT) 4 mg disintegrating tablet DISSOLVE (1) TABLET UNDER TONGUE EVERY 6 HOURS NEEDED FOR NAUSEA 3 Active predniSONE (DELTASONE) 1 mg tablet Take 1 tablet (1 mg) by mouth as needed 3 Active Active Problems Problem Noted Date Diagnosed Date Pulmonary HTN 07/31/2022 Ascending aortic aneurysm 07/05/2020 Atherosclerotic DELLA (renal artery stenosis), harika ateral 07/05/2020 Non-rheumatic mitral regurgitation 06/10/2018 Aortic root enlargement (CMS/HCC) 06/10/2018 Mitral valve prolapse 05/30/2017 Essential hypertension 05/30/2017 Old cerebrovascular accident (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 05/30/2017 Hypercholesteremia 05/30/2017 Resolved Problems Problem Noted Date Diagnosed Date Resolved Date Cough 06/28/2019 07/05/2020 Occlusion and stenosis of carotid artery 05/30/2017 06/10/2018 Social History Tobacco Use Types Packs/Day Years Used Date Smoking Tobacco: Never Smokeless Tobacco: Never Tobacco Cessation:Counseling Given: Not Answered Alcohol Use Standard Drinks/Week Comments No 0 (1 standard drink = 0.6 oz pur e alcohol) Sex and Gender Information Value Date Recorded Sex Assigned at Not on file Legal Sex Male 1:18 PM CDT Gender Identity Not on file Sexual Orientation Not on file Last Filed Vital Signs Vital Sign Reading Time Taken Comments Blood Pressure 94/60 08/15/2024 9:28 AM WEATHER STRIPPER Pulse 83 08/15/2024 9:28 AM WEATHER STRIPPER Temperature 36.6 ??C (97.8 ??F) 06/22/2020 1 1:57 AM CDT Respiratory Rate 16 05/30/2017 3:47 PM CDT Oxygen Saturation 94% 08/15/2024 9:28 AM WEATHER STRIPPER Inhaled Oxygen Concentration - - Weight 65.2 kg (143 lb 12.8 oz) 08/15/2024 9:28 AM WEATHER STRIPPER Height 170.2 cm (5' 7 ) 08/15/2024 9:28 AM WEATHER STRIPPER Body Mass Index 22.52 08/15/2024 9:28 AM WEATHER STRIPPER Plan of Treatment Not on file Insurance MEDICARE MEDICARE [facility] MEDICARE SUPPLEMENT Care Teams Raker Buffing Wheel Relationship Specialty Start Date End Date Jose G Ortiz II, MD [address] [place] [address] PCP - General Family Medicine 05/30/17
--- OUTSIDE RECORDS SUMMARY | 2024-09-07 07:21 | XMS_ITS | Clinical Summary ---
Author Organization [facility] [address] Address [address] [place] [address] Care Team Providers Care Merry Go Round Operator Name Role Phone Angel HARPER MD, Jose G Hopson Primary Care Provider Allergies Active Allergy Reactions Criticality Noted Date [...] and stenosis of carotid artery 05/30/2017 06/10/2018 Encounters Date Type Department Care Team Description 08/15/2024 9:30 AM CORRECTIONAL LIEUTENANT Office Visit [facility] Cardiology [address] [place] [address] Mattie Henderson MD Mitral valve prolapse (Primary Dx); Essential hypertension; Old cerebrovascular accident (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; Hypercholesteremia; Aortic root enlargement (CMS/HCC) (HCC); Aneurysm of 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 (HCC); Atherosclerotic DELLA (renal artery stenosis), bilateral (HCC) from Last 3 Months Surgical History Surgery Date Site/Laterality Comments APPENDECTOMY Medical History Medical History Date Comments Hypertension Hyperlipidemia Appendicitis Stroke (HCC) Cataracts, bilateral Anxiety Carotid artery disease (HCC) 2007 Lef t carotid occl Valvular disease Mitral valve prolapse 2017 MVP w/ mil d to mod MR Family History Medical History Relation Name Comments Bladder Cancer Father Heart failure Mother Relation Name Status Comments Father (Age 69) of alphonso ng [place] Mother (Age 101) Social History Tobacco Use Types Packs/Day Years [...] on file Sexual Orientation Not on file Obstetrics History Last Filed Vital Signs Vital Sign Reading Time Taken Comments Blood Pressure 94/60 08/15/2024 9:28 AM CORRECTIONAL LIEUTENANT Pulse 83 08/15/2024 9:28 AM CORRECTIONAL LIEUTENANT Temperature 36.6 ??C (97.8 ??F) 06/22/2020 1 1:57 AM CDT Respiratory Rate 16 05/30/2017 3:47 PM CDT Oxygen Saturation 94% 08/15/2024 9:28 AM CORRECTIONAL LIEUTENANT Inhaled Oxygen Concentration - - Weight 65.2 kg (143 lb 12.8 oz) 08/15/2024 9:28 AM CORRECTIONAL LIEUTENANT Height 170.2 cm (5' 7 ) 08/15/2024 9:28 AM CORRECTIONAL LIEUTENANT Body Mass Index 22.52 08/15/2024 9:28 AM CORRECTIONAL LIEUTENANT Plan of Treatment Health Maintenance Due Date Last Done Comments Depression Screening 1935 Fall Risk Assessment 1935 Pneumococcal vaccine 65+ (1 of 2 - PCV) 02/08/1942 DTaP/Tdap/Td Vaccine (1 - Tdap) 02/08/1947 Hepatitis B Screening 02/08/1954 Well Visit 65+ 02/08/2001 Zoster Vaccine (2 of 2) 10/04/2020 08/09/2020 Covid-19 Vaccine (3 - Pfizer risk series) 11/24/2020 10/27/2020, 09/29/2020 Influenza Vaccine (#1) 2024 08/09/2020 Insurance MEDICARE MEDICARE [facility] MEDICARE SUPPLEMENT Care Teams Merry Go Round Operator Relationship Specialty Start Date End Date Jose G Ortiz II, MD [address] [place] [address] PCP - General Family Medicine 05/30/17
--- OUTSIDE RECORDS SUMMARY | 2024-09-07 07:22 | XMS_ITS | Encounter Summary ---
Author Organization [facility] Address [address] [facility] [address] [place] [address] Care Team Providers Care Animal Groomer Name Role Phone Angel HARPER MD, Jose G Hopson Primary Care Provider Reason for Visit * Cardiology (Routine) - Closed Specialty Diagnoses / Procedures Referred By Contac t Referred To Contact Diagnoses Mitral valve prolapse Non-rheumatic mitral regurgitation Procedures Transthoracic Echo Complete W Doppler/CF Fany Hinojosa MD Phone: tel: fax: [facility] Referral ID Status Reason Start Date Expiration Date Visits Re quested Visits Authorized [id number] Closed 07/18/2021 08/17/2022 1 1 Encounter Details Date Type Department Care Team (Latest Contact Info) Description 08/22/2021 8:15 AM STOPPER MAKER Ancillary Procedure [facility] Cardiology [address] [facility] [address] [place] [address] Mitral valve prolapse; Non-rheumatic mitral regurgitation Social History Tobacco Use Types Packs/Day Years Used Date Smoking Tobacco: Never Smokeless Tobacco: Never Alcohol Use Standard Drinks/Week Comments No 0 (1 standard drink = 0.6 oz pur e alcohol) Sex and Gender Information Value Date Recorded Sex Assigned at Not on file Legal Sex Male 1:18 PM CDT Gender Identity Not on file Sexual Orientation Not on file documented as of this encounter Plan of Treatment Not on file documented as of this encounter Procedures Procedure Name Priority Date/Time Associated Diagnosis Comments TRANSTHORACIC ECHO (TTE) COMPLETE W DOPPLER/CF WO CONTRAST Routine 08/22/2021 9:07 AM STOPPER MAKER Mitral valve prolapse Non-rheumatic mitral regurgitation documented in this encounter Results * TRANSTHORACIC ECHO (TTE) COMPLETE W DOPPLER/CF WO CONTRAST (08/22/2021 9:07 AM STOPPER MAKER) Anatomical Region Laterality Modality Ultrasound 08/22/2021 8:13 AM STOPPER MAKER Narrative 08/22/2021 1:[address] [facility] Cardiology [address] [facility] [address], [place] [address] [address], [place] [address] P:[phone] P:[phone] Echocardiographic Report Patient Name: LENNY TOLLIVER : 1935 Study Date: 08/22/2021 8:13:09 AM Gender: M Tech: Location: [place] Ref.Provider: FANY HINOJOSA Height(Cm): 170 BSA: 1.76 Weight(Kg): 65.32 Heart Rate: 55 BP: 116/60 Quality: Good Order Provider: FANY HINOJOSA Procedures: Echocardiographic Report: Transthoracic echocardiogram with complete 2D, M-Mode, and color Doppler examination. Indications: Mitral Valve Prolapse, and Mitral Regurgitation. Measurements: 2D/M Mode ?Doppler ? Measurement ?Value ?Normal Range ? Measurement ?Value ?Normal Range ? EF Mod ? 63 ?AV Mean PG ? 2 ?mmHg ? EF MM ?56 ? [ 55 - 70 ] % ?AV Peak Mario ?1.00 ? m/s ? LVIDd MM ? 5.20 ? [ 3.90 - 5.30 ] cm ? AV Peak PG ? 4 ?mmHg ? LVIDs MM ? 3.67 ? [ 2.30 - 3.90 ] cm ? AV VTI ? 0.22 ? cm ? LVPWd MM ? 1.13 ? [ 0.60 - 1.00 ] cm ? LVOT Peak Mario ?0.75 ? [ 0.70 - 1.10 ] m/s ? IVSd MM ?1.13 ? [ 0.60 - 0.90 ] cm ? LVOT VTI ? 0.17 ? cm ? LA Dimension MM ?4.27 ? [ 2.70 - 3.80 ] cm ? MV E Peak Mario ?0.57 ? [ 0.60 - 1.30 ] m/s ? AoR Diam MM ?4.07 ? [ 2.60 - 3.70 ] cm ? MV A Peak Mario ?0.88 ? [ 0.40 - 0.80 ] m/s ? LA Volume Index ?27.00 ?[ 16.00 - 28.00 ] cc/m2 ?MV Decel Time ?258 ?[ 150 - 200 ] msec ? ACS MM ? 2.40 ? cm ? PV Peak Mario ?0.87 ? [ 0.40 - 0.80 ] m/s ? TR Peak Mario ?3.21 ? [ 0.40 - 0.80 ] m/s ? TR Peak PG ? 41 ? mmHg ? RVSP ? 49.00 ?mmHg ? E' ? 0.07 ? E/E' ? 8 ? Findings: Interpretation Site: Exam was interpreted at [facility]. Left Ventricle: Normal left ventricular systolic function. No focal wall motion abnormalities. Normal left ventricular size. Mild concentric left ventricular hypertrophy. Impaired diastolic relaxation Grade I. Ejection fraction is measured at 63 %. Right Ventricle: Normal right ventricular size. Normal right ventricular systolic function. Left Atrium: The left atrium is normal in size. Right Atrium: The right atrium is normal in size. Atrial Septum: Normal atrial septum. Mitral Valve: Mitral valve leaflets appear mildly thickened. Severe mitral annular calcification. Moderate mitral valve prolapse involving the posterior mitral valve. Moderate mitral valve regurgitation. Aortic Valve: Normal appearance of the aortic valve. No evidence of hemodynamically significant aortic stenosis by Doppler. Trileaflet aortic valve. No aortic regurgitation. Tricuspid Valve: Normal appearance of the tricuspid valve. Moderate pulmonary hypertension based on right ventricular systolic pressure. Estimated peak RVSP is 49 mmHg. Moderate tricuspid regurgitation. Pulmonic Valve: Pulmonic valve not well visualized. Trivial regurgitation in the pulmonic valve. Pericardium: Normal pericardium with no significant pericardial effusion. Aorta: Aortic root is mildly dilated. Mild aortic root calcification. IVC: The IVC is not well visualized. Conclusions: Normal left ventricular systolic function. No focal wall motion abnormalities. Normal left ventricular size. Mild concentric left ventricular hypertrophy. Impaired diastolic relaxation Grade I. Ejection fraction is measured at 63 %. Mitral valve leaflets appear mildly thickened. Severe mitral annular calcification. Moderate mitral valve prolapse involving the posterior mitral valve. Moderate mitral valve regurgitation. Normal appearance of the aortic valve. No evidence of hemodynamically significant aortic stenosis by Doppler. Trileaflet aortic valve. No aortic regurgitation. Normal appearance of the tricuspid valve. Moderate pulmonary hypertension based on right ventricular systolic pressure. Estimated peak RVSP is 49 mmHg. Moderate tricuspid regurgitation. Normal sinus rhythm. Electronically Signed By: Mark Anthony Ambrose MD 2021-08-22 13:21:20 STOPPER MAKER Procedure Note Pablo Ambrose MD - 08/22/2021 [facility] Cardiology [address], [place] [address] [address], [place] [address] P:[phone] P:[phone] Echocardiographic Report Patient Name: LENNY TOLLIVERPatient ID: [id number] : [id number] Date: 08/22/2021 8:13:09 AM Gender: MAccession #: [id number] Tech: GMLocation: [place] Ref.Provider: FANY HINOJOSAHeight(Cm): 170 BSA: 1.76Weight(Kg): 65.32 Heart Rate: 55BP: 116/60 Quality: GoodOrder Provider: FANY HINOJOSA Procedures: Echocardiographic Report: Transthoracic echocardiogram with complete 2D, M-Mode, and color Dopplerexamination. Indications: Mitral Valve Prolapse, and Mitral Regurgitation. Measurements: 2D/M Mode Doppler Measurement Value Normal Range MeasurementValue Normal Range EF Mod 63 AV Mean PG 2mmHg EF MM 56 [ 55 - 70 ] % AV Peak Vel1.00 m/s LVIDd MM 5.20 [ 3.90 - 5.30 ] cm AV Peak PG 4mmHg LVIDs MM 3.67 [ 2.30 - 3.90 ] cm AV VTI0.22 cm LVPWd MM 1.13 [ 0.60 - 1.00 ] cm LVOT Peak Vel0.75 [ 0.70 - 1.10 ] m/s IVSd MM 1.13 [ 0.60 - 0.90 ] cm LVOT VTI0.17 cm LA Dimension MM 4.27 [ 2.70 - 3.80 ] cm MV E Peak Vel0.57 [ 0.60 - 1.30 ] m/s AoR Diam MM 4.07 [ 2.60 - 3.70 ] cm MV A Peak Vel0.88 [ 0.40 - 0.80 ] m/s LA Volume Index 27.00 [ 16.00 - 28.00 ] cc/m2 MV Decel [id number] [ 150 - 200 ] msec ACS MM 2.40 cm PV Peak Vel0.87 [ 0.40 - 0.80 ] m/s TR Peak Vel3.21 [ 0.40 - 0.80 ] m/s TR Peak PG 41mmHg RVSP49.00 mmHg E'0.07 E/E' 8 Findings: Interpretation Site: Exam was interpreted at [facility]. Left Ventricle: Normal left ventricular systolic function. No focal wall motionabnormalities. Normal left ventricular size. Mild concentric left ventricular hypertrophy.Impaired diastolic relaxation Grade I. Ejection fraction is measured at 63 %. Right Ventricle: Normal right ventricular size. Normal right ventricular systolicfunction. Left Atrium: The left atrium is normal in size. Right Atrium: The right atrium is normal in size. Atrial Septum: Normal atrial septum. Mitral Valve: Mitral valve leaflets appear mildly thickened. Severe mitral annularcalcification. Moderate mitral valve prolapse involving the posterior mitral valve.Moderate mitral valve regurgitation. Aortic Valve: Normal appearance of the aortic valve. No evidence of hemodynamicallysignificant aortic stenosis by Doppler. Trileaflet aortic valve. No aortic regurgitation. Tricuspid Valve: Normal appearance of the tricuspid valve. Moderate pulmonary hypertensionbased on right ventricular systolic pressure. Estimated peak RVSP is 49 mmHg. Moderatetricuspid regurgitation. Pulmonic Valve: Pulmonic valve not well visualized. Trivial regurgitation in the pulmonicvalve. Pericardium: Normal pericardium with no significant pericardial effusion. Aorta: Aortic root is mildly dilated. Mild aortic root calcification. IVC: The IVC is not well visualized. Conclusions: Normal left ventricular systolic function. No focal wall motionabnormalities. Normal left ventricular size. Mild concentric left ventricular hypertrophy.Impaired diastolic relaxation Grade I. Ejection fraction is measured at 63 %. Mitral valve leaflets appear mildly thickened. Severe mitral annularcalcification. Moderate mitral valve prolapse involving the posterior mitral valve.Moderate mitral valve regurgitation. Normal appearance of the aortic valve. No evidence of hemodynamicallysignificant aortic stenosis by Doppler. Trileaflet aortic valve. No aortic regurgitation. Normal appearance of the tricuspid valve. Moderate pulmonary hypertensionbased on right ventricular systolic pressure. Estimated peak RVSP is 49 mmHg. Moderatetricuspid regurgitation. Normal sinus rhythm. Electronically Signed By: Mark Anthony Ambrose MD 2021-08-22 13:21:20 STOPPER MAKER us Fany Hinojosa MD CV ECHO PROCEDURES Final Re sult documented in this encounter Visit Diagnoses Diagnosis Mitral valve prolapse Mitral valve disorders Non-rheumatic mitral regurgitation documented in this encounter Care Teams Animal Groomer Relationship Specialty Start Date End Date Jose G Ortiz II, MD [address] [place] [address] PCP - General Family Medicine 05/30/17 documented as of this encounter
--- OUTSIDE RECORDS SUMMARY | 2024-09-07 07:22 | XMS_ITS | Encounter Summary ---
Author Organization [facility] Address [address] [place] [address] Care Team Providers Care Electrical Tech Name Role Phone Angel HARPER MD, Jose G Hopson Primary Care Provider Reason for Visit * Reason Onset Date Comments echo results 06/29/2020 Encounter Details Date Type Department Care Team (Late st Contact Info) Description 06/29/2020 Telephone [facility] Cardiology [address] [place] [phone] Marilyn Marcial RN echo results Social History Tobacco Use Types Packs/Day Years [...] on file documented as of this encounter Miscellaneous Notes * Telephone Encounter - Marilyn Marcial RN - 06/29/2020 3:25 PM CABLE SUPERVISOR I spoke w pt and give him his echo results pt verbalized understanding E SUPERVISOR * Telephone Encounter - Veronica Church - 06/29/2020 2:15 PM CST Pt called back to speak with Charity DEL VALLE. E SUPERVISOR * Telephone Encounter - Marilyn Marcial RN - 06/29/2020 12:06 PM CABLE SUPERVISOR Called pt. Did not get a voicemail as the line kept ringing and ringing. I will try again but also send this in the mail for patient to review along with echo results. E SUPERVISOR * Telephone Encounter - Marilyn Marcial RN - 06/29/2020 12:04 PM CABLE SUPERVISOR ----- Message from Carlie Morales MD sent at 06/24/2020 4:37 PM CDT ----- Patient with mitral valve prolapse and mitral regurgitation, please review echo results: Same as last year, mild to moderate leakage of the mitral valve. Continue same. 04/2019 EF 72%, LVH, DD, moderate to severe MVP, [id number] MR, mild TR aortic root 4.3 cm, ascending aorta 4.0 cm 05/2020 EF 65-70%, normal LV size, mild LVH, diastolic dysfunction, moderate to severe MVP, [id number] MR, mild TR, mildly dilated aortic root 4.0 cm E SUPERVISOR documented in this encounter Plan of Treatment Not on file documented as of this encounter Visit Diagnoses Not on filedocumented in this encounter Care Teams Electrical Tech Relationship Specialty Start Date End Date Jose G Ortiz II, MD [address] [place] [address] PCP - General Family Medicine 05/30/17 documented as of this encounter
--- OUTSIDE RECORDS SUMMARY | 2024-09-07 07:22 | XMS_ITS | Encounter Summary ---
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) Mitral valve prolapse Aortic root enlargement (CMS/HCC) (HCC) Procedures Transthoracic Echo (TTE) Complete W Doppler/CF Fany Hinojosa MD Phone: tel: fax: [facility] Referral ID Status Reason Start Date Expiration Date Visits Re quested Visits Authorized [id number] Closed 07/31/2022 08/30/2023 1 1 Encounter Details Date Type Department Care Team (Latest Contact Info) Description 09/06/2022 8:15 AM FIELD SUPERVISOR Ancillary Procedure [facility] Cardiology [address] [place] [address] Non-rheumatic mitral regurgitation; Aneurysm of 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; Mitral valve prolapse; Aortic root enlargement (CMS/HCC) (HCC) Social History Tobacco Use Types Packs/Day Years [...] (TTE) COMPLETE W DOPPLER/CF WO CONTRAST Routine 09/06/2022 8:55 AM FIELD SUPERVISOR 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 Mitral valve prolapse Aortic root enlargement (CMS/HCC) (HCC) documented in this encounter Results * TRANSTHORACIC ECHO (TTE) COMPLETE W DOPPLER/CF WO CONTRAST (09/06/2022 8:55 AM FIELD SUPERVISOR) Anatomical Region Laterality Modality Ultrasound 09/06/2022 8:04 AM FIELD SUPERVISOR Narrative 09/06/2022 6:18 PM FIELD SUPERVISOR [facility] Cardiology [address], [place] [address] [address], [place] [address] P:[phone] P:[phone] Echocardiographic Report Patient Name: LENNY TOLLIVER : [id number] Study Date: 09/06/2022 8:04:12 AM Gender: M Tech: Location: [place] Ref.Provider: FANY HINOJOSA Height(Cm): 170 BSA: 1.7 Weight(Kg): 60.33 Heart Rate: 55 BP: 128/60 Quality: Good Order Provider: FANY HINOJOSA Procedures: Echocardiographic Report: Transthoracic echocardiogram with complete 2D, M-Mode, and color Doppler examination. Indications: Aortic Aneurysm, Mitral Valve Prolapse, and Mitral Regurgitation. Measurements: 2D/M Mode ?Doppler ? Measurement ?Value ?Normal Range ? Measurement ?Value ?Normal Range ? EF Mod ? 65 ?AV Mean PG ? 2 ?mmHg ? EF MM ?49 ? [ 55 - 70 ] % ?AV Peak Mario ?0.94 ? m/s ? LVIDd MM ? 4.88 ? [ 3.90 - 5.30 ] cm ? AV Peak PG ? 4 ?mmHg ? LVIDs MM ? 3.68 ? [ 2.30 - 3.90 ] cm ? AV VTI ? 0.22 ? cm ? LVPWd MM ? 1.05 ? [ 0.60 - 1.00 ] cm ? LVOT Peak Mario ?0.71 ? [ 0.70 - 1.10 ] m/s ? IVSd MM ?1.05 ? [ 0.60 - 0.90 ] cm ? LVOT VTI ? 0.19 ? cm ? LA Dimension MM ?4.05 ? [ 2.70 - 3.80 ] cm ? MV E Peak Mario ?0.59 ? [ 0.60 - 1.30 ] m/s ? AoR Diam MM ?3.60 ? [ 2.60 - 3.70 ] cm ? MV A Peak Mario ?0.84 ? [ 0.40 - 0.80 ] m/s ? LA Volume Index ?27.00 ?[ 16.00 - 28.00 ] cc/m2 ?MV Decel Time ?322 ?[ 150 - 200 ] msec ? ACS MM ? 2.02 ? cm ? PV Peak Mario ?1.05 ? [ 0.40 - 0.80 ] m/s ? TR Peak Mario ?2.75 ? [ 0.40 - 0.80 ] m/s ? TR Peak PG ? 30 ? mmHg ? RVSP ? 38.00 ?mmHg ? E' ? 0.08 ? E/E' ? 7 ? - Findings: Interpretation Site: Exam was interpreted at [facility]. Left Ventricle: Normal left ventricular systolic function. No focal wall motion abnormalities. Normal left ventricular size. Mild concentric left ventricular hypertrophy. Impaired diastolic relaxation Grade I. Ejection fraction is measured at 65 %. Right Ventricle: Normal right ventricular size. Normal right ventricular systolic function. Left Atrium: There is mild enlargement of left atrium. Right Atrium: There is mild enlargement of right atrium. Atrial Septum: Normal atrial septum. Mitral Valve: Mitral valve leaflets appear mildly thickened. Severe mitral annular calcification. Borderline to mild mitral valve prolapse involving the anterior mitral leaflet. Moderate mitral valve prolapse involving the posterior mitral valve. Mild to moderate mitral valve regurgitation. Aortic Valve: Normal appearance of the aortic valve. No evidence of hemodynamically significant aortic stenosis by Doppler. Trileaflet aortic valve. No aortic regurgitation. Tricuspid Valve: Normal appearance of the tricuspid valve. Mild pulmonary hypertension based on right ventricular systolic pressure. Estimated peak RVSP is 38 mmHg. Moderate tricuspid regurgitation. Pulmonic Valve: Pulmonic valve not well visualized. Mild pulmonic regurgitation. Pericardium: Normal pericardium with no significant pericardial effusion. Aorta: Ascending aorta is mildly dilated. Ascending Aorta 4.1 cm. Aortic root is mildly dilated. Mild aortic root calcification. IVC: Normal size and normal respiratory collapse consistent with normal right atrial pressure (<5 mmHg). Recommendations: Consider TRE if clinically indicated. Conclusions: Normal left ventricular systolic function. No focal wall motion abnormalities. Normal left ventricular size. Mild concentric left ventricular hypertrophy. Impaired diastolic relaxation Grade I. Ejection fraction is measured at 65 %. Mitral valve leaflets appear mildly thickened. Severe mitral annular calcification. Borderline to mild mitral valve prolapse involving the anterior mitral leaflet. Moderate mitral valve prolapse involving the posterior mitral valve. Mild to moderate mitral valve regurgitation. Normal appearance of the tricuspid valve. Mild pulmonary hypertension based on right ventricular systolic pressure. Estimated peak RVSP is 38 mmHg. Moderate tricuspid regurgitation. Ascending aorta is mildly dilated. Ascending Aorta 4.1 cm. Aortic root is mildly dilated. Mild aortic root calcification. Normal sinus rhythm. Electronically Signed By: Mark Anthony Ambrose MD 2022-09-06 18:17:59 FIELD SUPERVISOR CC: CC: Procedure Note Pablo Ambrose MD - 09/06/2022 [facility] Cardiology [address], [place] [address] [address], [place] [address] P:[phone] P:[phone] Echocardiographic Report Patient Name: LENNY TOLLIVERPatient ID: [id number] : [id number] Date: 09/06/2022 8:04:12 AM Gender: MAccession #: [id number] Tech: GMLocation: [place] Ref.Provider: FANY HINOJOSAHeight(Cm): 170 BSA: 1.7Weight(Kg): 60.33 Heart Rate: 55BP: 128/60 Quality: GoodOrder Provider: FANY HINOJOSA Procedures: Echocardiographic Report: Transthoracic echocardiogram with complete 2D, M-Mode, and color Dopplerexamination. Indications: Aortic Aneurysm, Mitral Valve Prolapse, and Mitral Regurgitation. Measurements: 2D/M Mode Doppler Measurement Value Normal Range MeasurementValue Normal Range EF Mod 65 AV Mean PG 2mmHg EF MM 49 [ 55 - 70 ] % AV Peak Vel0.94 m/s LVIDd MM 4.88 [ 3.90 - 5.30 ] cm AV Peak PG 4mmHg LVIDs MM 3.68 [ 2.30 - 3.90 ] cm AV VTI0.22 cm LVPWd MM 1.05 [ 0.60 - 1.00 ] cm LVOT Peak Vel0.71 [ 0.70 - 1.10 ] m/s IVSd MM 1.05 [ 0.60 - 0.90 ] cm LVOT VTI0.19 cm LA Dimension MM 4.05 [ 2.70 - 3.80 ] cm MV E Peak Vel0.59 [ 0.60 - 1.30 ] m/s AoR Diam MM 3.60 [ 2.60 - 3.70 ] cm MV A Peak Vel0.84 [ 0.40 - 0.80 ] m/s LA Volume Index 27.00 [ 16.00 - 28.00 ] cc/m2 MV Decel Norb051 [ 150 - 200 ] msec ACS MM 2.02 cm PV Peak Vel1.05 [ 0.40 - 0.80 ] m/s TR Peak Vel2.75 [ 0.40 - 0.80 ] m/s TR Peak PG 30mmHg RVSP38.00 mmHg E'0.08 E/E' 7 - Findings: Interpretation Site: Exam was interpreted at [facility]. Left Ventricle: Normal left ventricular systolic function. No focal wall motionabnormalities. Normal left ventricular size. Mild concentric left ventricular hypertrophy.Impaired diastolic relaxation Grade I. Ejection fraction is measured at 65 %. Right Ventricle: Normal right ventricular size. Normal right ventricular systolicfunction. Left Atrium: There is mild enlargement of left atrium. Right Atrium: There is mild enlargement of right atrium. Atrial Septum: Normal atrial septum. Mitral Valve: Mitral valve leaflets appear mildly thickened. Severe mitral annularcalcification. Borderline to mild mitral valve prolapse involving the anterior mitralleaflet. Moderate mitral valve prolapse involving the posterior mitral valve. Mild tomoderate mitral valve regurgitation. Aortic Valve: Normal appearance of the aortic valve. No evidence of hemodynamicallysignificant aortic stenosis by Doppler. Trileaflet aortic valve. No aortic regurgitation. Tricuspid Valve: Normal appearance of the tricuspid valve. Mild pulmonary hypertensionbased on right ventricular systolic pressure. Estimated peak RVSP is 38 mmHg. Moderatetricuspid regurgitation. Pulmonic Valve: Pulmonic valve not well visualized. Mild pulmonic regurgitation. Pericardium: Normal pericardium with no significant pericardial effusion. Aorta: Ascending aorta is mildly dilated. Ascending Aorta 4.1 cm. Aortic root ismildly dilated. Mild aortic root calcification. IVC: Normal size and normal respiratory collapse consistent with normal rightatrial pressure (<5 mmHg). Recommendations: Consider TRE if clinically indicated. Conclusions: Normal left ventricular systolic function. No focal wall motionabnormalities. Normal left ventricular size. Mild concentric left ventricular hypertrophy.Impaired diastolic relaxation Grade I. Ejection fraction is measured at 65 %. Mitral valve leaflets appear mildly thickened. Severe mitral annularcalcification. Borderline to mild mitral valve prolapse involving the anterior mitralleaflet. Moderate mitral valve prolapse involving the posterior mitral valve. Mild tomoderate mitral valve regurgitation. Normal appearance of the tricuspid valve. Mild pulmonary hypertensionbased on right ventricular systolic pressure. Estimated peak RVSP is 38 mmHg. Moderatetricuspid regurgitation. Ascending aorta is mildly dilated. Ascending Aorta 4.1 cm. Aortic root ismildly dilated. Mild aortic root calcification. Normal sinus rhythm. 

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
--- OUTSIDE RECORDS SUMMARY | 2024-09-07 07:22 | XMS_ITS | Encounter Summary ---
Author Organization [facility] Address [address] [place] [address] Care Team Providers Care Animal Control Supervisor Name Role Phone Angel HARPER MD, Jose G Hopson Primary Care Provider Reason for Visit * (Routine) - Closed Specialty Diagnoses / Procedures Referred By Contac t Referred To Contact Diagnoses Mitral valve prolapse Non-rheumatic mitral regurgitation Procedures Transthoracic Echo Complete W Doppler/CF Fany Hinojosa MD Phone: tel: fax: [facility] Referral ID Status Reason Start Date Expiration Date Visits Re quested Visits Authorized [id number] Closed 06/21/2020 07/21/2021 1 1 Encounter Details Date Type Department Care Team (Latest Contact Info) Description 06/22/2020 4:00 PM CDT Ancillary Procedure [facility] Medical [facility] Cardiology [address] [place] [address] Mitral valve prolapse; Non-rheumatic mitral [...] Sign Reading Time Taken Comments Blood Pressure - - Pulse - - Temperature 36.6 ??C (97.8 ??F) 06/22/2020 11:57 AM C DT Respiratory Rate - - Oxygen Saturation - - Inhaled Oxygen Concentration - - Weight - - Height - - Body Mass Index - - documented in this encounter Plan of Treatment Not on file documented as of this encounter Procedures Procedure Name Priority Date/Time Associated Diagnosis Comments TRANSTHORACIC ECHO (TTE) COMPLETE W DOPPLER/CF WO CONTRAST Routine 06/22/2020 1:19 PM CDT Mitral valve prolapse Non-rheumatic mitral regurgitation documented in this encounter Results * TRANSTHORACIC ECHO (TTE) COMPLETE W DOPPLER/CF WO CONTRAST (06/22/2020 1:19 PM CDT) Anatomical Region Laterality Modality Ultrasound 06/22/2020 11:5 5 AM CDT Narrative 06/22/2020 5:03 PM CDT [facility] Cardiology [address], [place] [address] [address], [place] [address] P:[phone] P:[phone] Echocardiographic Report Patient Name: LENNY TOLLIVER : 1935 Study Date: 06/22/2020 11:55:18 AM Gender: M Tech: Location: [place] Ref.Provider: ANGEL Height(Cm): 170 BSA: 1.81 Weight(Kg): 70.31 Heart Rate: 50 BP: 147/89 Quality: Good Order Provider: FANY HINOJOSA Procedures: Echocardiographic Report: Transthoracic echocardiogram with complete 2D, M-Mode, and color Doppler examination. Indications: Mitral Valve Prolapse. Measurements: 2D/M Mode ?Doppler ? Measurement ?Value ?Normal Range ? Measurement ?Value ?Normal Range ? EF Mod ? 65 ?AV Mean PG ? 2 ?mmHg ? EF MM ?63 ? [ 55 - 70 ] % ?AV Peak Mario ?0.93 ? m/s ? LVIDd MM ? 5.85 ? [ 3.90 - 5.30 ] cm ? AV Peak PG ? 4 ?mmHg ? LVIDs MM ? 3.82 ? [ 2.30 - 3.90 ] cm ? AV VTI ? 0.23 ? cm ? LVPWd MM ? 1.13 ? [ 0.60 - 1.00 ] cm ? LVOT Peak Mario ?0.65 ? [ 0.70 - 1.10 ] m/s ? IVSd MM ?1.13 ? [ 0.60 - 0.90 ] cm ? LVOT VTI ? 0.18 ? cm ? LA Dimension MM ?4.20 ? [ 2.70 - 3.80 ] cm ? MV E Peak Mario ?0.71 ? [ 0.60 - 1.30 ] m/s ? AoR Diam MM ?3.97 ? [ 2.60 - 3.70 ] cm ? MV A Peak Mario ?0.71 ? [ 0.40 - 0.80 ] m/s ? LA Volume Index ?18.00 ?[ 16.00 - 28.00 ] cc/m2 ?MV Decel Time ?257 ?[ 150 - 200 ] msec ? ACS MM ? 2.32 ? cm ? PV Peak Mario ?0.84 ? [ 0.40 - 0.80 ] m/s ? TR Peak Mario ?2.75 ? [ 0.40 - 0.80 ] m/s ? TR Peak PG ? 30 ? mmHg ? RVSP ? 38.00 ?mmHg ? E' ? 0.08 ? E/E' ? 9 ? Findings: Interpretation Site: [facility]. Left Ventricle: Normal left ventricular systolic function. No focal wall motion abnormalities. Normal left ventricular size. Mild concentric left ventricular hypertrophy. Impaired diastolic relaxation Grade I. Ejection fraction is visually estimated at 65-70 %. Ejection fraction is measured at 65 %. Right Ventricle: Normal right ventricular size. Normal right ventricular systolic function. Left Atrium: There is mild enlargement of left atrium. Right Atrium: The right atrium is normal in size. Atrial Septum: Normal atrial septum. Mitral Valve: Moderateto severe mitral valve prolapse involving the posterior mitral valve. Mild to moderate mitral valve regurgitation. There is no hemodynamically significant mitral stenosis by Doppler. Aortic Valve: No evidence of hemodynamically significant aortic stenosis by Doppler. Aortic cusps appear mildly sclerotic. Trileaflet aortic valve. Trace aortic valve regurgitation. Tricuspid Valve: Normal appearance of the tricuspid valve. Mild pulmonary hypertension based on right ventricular systolic pressure. Estimated peak RVSP is 38 mmHg. Mild tricuspid regurgitation. Pulmonic Valve: Normal appearance of the pulmonic valve. No pulmonic stenosis. Moderate pulmonic regurgitation. Pericardium: Normal pericardium with no significant pericardial effusion. Aorta: Aortic root is mildly dilated. IVC: Normal size and normal respiratory collapse consistent with normal right atrial pressure (<5 mmHg). Conclusions: Normal left ventricular systolic function. No focal wall motion abnormalities. Normal left ventricular size. Mild concentric left ventricular hypertrophy. Impaired diastolic relaxation Grade I. Ejection fraction is visually estimated at 65-70 %. Ejection fraction is measured at 65 %. There is mild enlargement of left atrium. Moderateto severe mitral valve prolapse involving the posterior mitral valve. Mild to moderate mitral valve regurgitation. Estimated peak RVSP is 38 mmHg. Mild tricuspid regurgitation. Moderate pulmonic regurgitation. Aortic root is mildly dilated. Normal sinus rhythm. Electronically Signed By: Venancio Arreguin MD 2020-06-22 17:03:49 CDT Procedure Note Venancio Arreguin MD - 06/22/2020 [facility] Cardiology [address], [place] [address] [address], [place] [address] P:[phone] P:[phone] Echocardiographic Report Patient Name: LENNY TOLLIVREPatient ID: [id number] : [id number] Date: 06/22/2020 11:55:18 AM Gender: MAccession #: [id number] Tech: GMLocation: [place] Ref.Provider: Brunaight(Cm): 170 BSA: 1.81Weight(Kg): 70.31 Heart Rate: 50BP: 147/89 Quality: GoodOrder Provider: FANY HINOJOSA Procedures: Echocardiographic Report: Transthoracic echocardiogram with complete 2D, M-Mode, and color Dopplerexamination. Indications: Mitral Valve Prolapse. Measurements: 2D/M Mode Doppler Measurement Value Normal Range MeasurementValue Normal Range EF Mod 65 AV Mean PG 2mmHg EF MM 63 [ 55 - 70 ] % AV Peak Vel0.93 m/s LVIDd MM 5.85 [ 3.90 - 5.30 ] cm AV Peak PG 4mmHg LVIDs MM 3.82 [ 2.30 - 3.90 ] cm AV VTI0.23 cm LVPWd MM 1.13 [ 0.60 - 1.00 ] cm LVOT Peak Vel0.65 [ 0.70 - 1.10 ] m/s IVSd MM 1.13 [ 0.60 - 0.90 ] cm LVOT VTI0.18 cm LA Dimension MM 4.20 [ 2.70 - 3.80 ] cm MV E Peak Vel0.71 [ 0.60 - 1.30 ] m/s AoR Diam MM 3.97 [ 2.60 - 3.70 ] cm MV A Peak Vel0.71 [ 0.40 - 0.80 ] m/s LA Volume Index 18.00 [ 16.00 - 28.00 ] cc/m2 MV Decel [id number] [ 150 - 200 ] msec ACS MM 2.32 cm PV Peak Vel0.84 [ 0.40 - 0.80 ] m/s TR Peak Vel2.75 [ 0.40 - 0.80 ] m/s TR Peak PG 30mmHg RVSP38.00 mmHg E'0.08 E/E' 9 Findings: Interpretation Site: Exam [facility]. Left Ventricle: Normal left ventricular systolic function. No focal wall motionabnormalities. Normal left ventricular size. Mild concentric left ventricular hypertrophy.Impaired diastolic relaxation Grade I. Ejection fraction is visually estimated at 65-70 %.Ejection fraction is measured at 65 %. Right Ventricle: Normal right ventricular size. Normal right ventricular systolicfunction. Left Atrium: There is mild enlargement of left atrium. Right Atrium: The right atrium is normal in size. Atrial Septum: Normal atrial septum. Mitral Valve: Moderateto severe mitral valve prolapse involving the posterior mitralvalve. Mild to moderate mitral valve regurgitation. There is no hemodynamicallysignificant mitral stenosis by Doppler. Aortic Valve: No evidence of hemodynamically significant aortic stenosis by Doppler.Aortic cusps appear mildly sclerotic. Trileaflet aortic valve. Trace aortic valveregurgitation. Tricuspid Valve: Normal appearance of the tricuspid valve. Mild pulmonary hypertensionbased on right ventricular systolic pressure. Estimated peak RVSP is 38 mmHg. Mildtricuspid regurgitation. Pulmonic Valve: Normal appearance of the pulmonic valve. No pulmonic stenosis. Moderatepulmonic regurgitation. Pericardium: Normal pericardium with no significant pericardial effusion. Aorta: Aortic root is mildly dilated. IVC: Normal size and normal respiratory collapse consistent with normal rightatrial pressure (<5 mmHg). Conclusions: Normal left ventricular systolic function. No focal wall motionabnormalities. Normal left ventricular size. Mild concentric left ventricular hypertrophy.Impaired diastolic relaxation Grade I. Ejection fraction is visually estimated at 65-70 %.Ejection fraction is measured at 65 %. There is mild enlargement of left atrium. Moderateto severe mitral valve prolapse involving the posterior mitralvalve. Mild to moderate mitral valve regurgitation. Estimated peak RVSP is 38 mmHg. Mild tricuspid regurgitation. Moderate pulmonic regurgitation. Aortic root is mildly dilated. Normal sinus rhythm. Electronically Signed By: Venancio Arreguin MD 2020-06-22 17:03:49 CDT Fany Hinojosa MD CV ECHO PROCEDURES Final Re sult documented in this encounter Visit Diagnoses Diagnosis Mitral valve prolapse Mitral valve disorders Non-rheumatic mitral regurgitation documented in this encounter Care Teams Animal Control Supervisor Relationship Specialty Start Date End Date Jose G Ortiz II, MD [address] [place] [address] PCP - General Family Medicine 05/30/17 documented as of this encounter
--- OUTSIDE RECORDS SUMMARY | 2024-09-07 07:22 | XMS_ITS | Encounter Summary ---
Author Organization [facility] Address [address] [place] [address] Care Team Providers Care Client Service Associate Name Role Phone Angel HARPER MD, Jose G Hopson Primary Care Provider Encounter Details Date Type Department Care Team (Late st Contact Info) Description 06/30/2019 Telephone [facility] [address] [facility] [address] [place] [address] Carlie Morales MD [address] [facility] [address] [place] [address] Social History Tobacco Use Types Packs/Day Years [...] encounter Miscellaneous Notes * Telephone Encounter - Katy Valencia RN - 06/30/2019 4:29 PM CST Reviewed previous note from [facility] CTA results with son in detail. WAL SPECIALIST * Telephone Encounter - Veronica Church - 06/30/2019 3:49 PM CST Pt's son called to request results on pt's CTA chest/abd. cb [phone] WAL SPECIALIST documented in this encounter Plan of Treatment Not on file documented as of this encounter Visit Diagnoses Not on filedocumented in this encounter Care Teams Client Service Associate Relationship Specialty Start Date End Date Jose G Ortiz II, MD [address] [place] [address] PCP - General Family Medicine 05/30/17 documented as of this encounter
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
--- OUTSIDE RECORDS SUMMARY | 2024-09-07 07:22 | XMS_ITS | Encounter Summary ---
Author Organization [facility] Healthcare Address [address] [place] [address] Care Team Providers Care Supply Chain Associate Name Role Phone Angel HARPER MD, Jose G Hopson Primary Care Provider Reason for Visit * Reason Comments Follow-up Former EU pt Mitral Valve Prolapse Encounter Details Date Type Department Care Team (Latest Contact Info) Description 08/15/2024 9:30 AM SALT MAKER Office Visit [facility] Medical Group Cardiology [address] [place] [address] Mattie Henderson MD [address] [address] Mitral valve prolapse (Primary Dx); Essential hypertension; Old cerebrovascular accident (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; Hypercholesteremia; Aortic root enlargement (CMS/HCC) (HCC); Aneurysm of 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 (HCC); Atherosclerotic DELLA (renal artery stenosis), bilateral (HCC) Social History Tobacco Use Types Packs/Day [...] Comments Blood Pressure 94/60 08/15/2024 9:28 AM SALT MAKER Pulse 83 08/15/2024 9:28 AM SALT MAKER Temperature - - Respiratory Rate - - Oxygen Saturation 94% 08/15/2024 9:28 AM SALT MAKER Inhaled Oxygen Concentration - - Weight 65.2 kg (143 lb 12.8 oz) 08/15/2024 9:28 AM SALT MAKER Height 170.2 cm (5' 7 ) 08/15/2024 9:28 AM SALT MAKER Body Mass Index 22.52 08/15/2024 9:28 AM SALT MAKER documented in this encounter Progress Notes * Mattie Henderson MD - 08/15/2024 9:30 AM CST CARDIOLOGY CLINIC NOTE CHIEF COMPLAINT / REASON FOR CONSULT: F/U HISTORY: Tanner Tolliver is a 89 y.o. male with the following history; Mitral valve prolapse with mild-moderate mitral regurgitation per TTE 09/06/2022 Carotid artery disease History of CVA with aphasia in 2007 Ascending aortic aneurysm. Aortic root measures 4.1cm on CT 05/2019. Ascending aorta 4.1cm on TTE 09/06/2022. Hypertension Hyperlipidemia Bilateral renal artery stenosis Rheumatoid arthritis Interim History: Transitioning care from Dr. Morales. Doing well since last visit. Goes golfing every day. Recently got a new horse, named Doc. No cardiac issues or symptoms. REVIEW OF SYSTEMS: GENERAL: As per HPI CVS: As per HPI PHYSICAL EXAMINATION: BP 94/60 (BP Location: Left arm, Patient Position: Sitting) Pulse 83 Ht 170.2 cm (5' 7 ) Wt 65.2 kg (143 lb 12.8 oz) SpO2 94% BMI 22.52 kg/m?? GENERAL: Alert, in no distress HEAD: Normocephalic and atraumatic EYES: Extra ocular movement intact ENT: Unremarkable NECK: Supple with midline trachea CHEST: Clear to auscultation CARDIAC: Regular rate and rhythm, S1 S2 normal, no murmur SKIN: Warm and dry NEURO: Alert and oriented x 3 CARDIAC IMAGING RESULTS REVIEW: Transthoracic Echocardiogram 09/06/2022: Normal left ventricular systolic function. No focal [...] Aortic root is mildly dilated. Mild aortic rootcalcification. Normal sinus rhythm. ASSESSMENT/PLAN: Mitral valve prolapse with mild-moderate mitral regurgitation per TTE 09/06/2022 Asymptomatic with good left ventricular function and no left ventricular dilatation. Continue serial monitoring. Carotid artery disease Continue ASA. Continue Rosuvastatin. History of CVA with aphasia in 2007 Continue ASA. Continue Rosuvastatin. Ascending aortic aneurysm. Aortic root measures 4.1cm on CT 05/2019. Ascending aorta 4.1cm on TTE 09/06/2022. Continue with blood pressure control, risk factor modification. Hypertension Continue Toprol. Continue Lisinopril. Hyperlipidemia Continue Rosuvastatin. Bilateral renal artery stenosis Blood pressure is well controlled, renal function okay. Mattie Henderson M.D., FAC MAKER documented in this encounter Plan of Treatment Not on file documented as of this encounter Visit Diagnoses Diagnosis Mitral valve prolapse- Primary Mitral valve disorders Essential hypertension Unspecified essential hypertension Old cerebrovascular accident (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 Hypercholesteremia Pure hypercholesterolemia Aortic root enlargement (CMS/HCC) (HCC) Aneurysm of 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 (HCC) Atherosclerotic DELLA (renal artery stenosis), bilateral (HCC) Atherosclerosis of renal artery documented in this encounter Care Teams Supply Chain Associate Relationship Specialty Start Date End Date Jose G Ortiz II, MD [address] [place] [address] PCP - General Family Medicine 05/30/17 documented as of this encounter
--- OUTSIDE RECORDS SUMMARY | 2024-09-07 07:22 | XMS_ITS | Encounter Summary ---
Author Organization [facility] Medical Group Address [address] [place] [address] Care Team Providers Care Batch Records Clerk Name Role Phone Angel HARPER MD, Jose G Hopson Primary Care Provider Reason for Visit * Reason Onset Date Comments Abnormal Echo 06/25/2020 Encounter Details Date Type Department Care Team (Late st Contact Info) Description 06/25/2020 Telephone [facility] Medical [facility] Cardiology [address] [place] [phone] Marilyn Marcial RN Abnormal Echo Social History Tobacco Use Types Packs/Day Years [...] Telephone Encounter - Marilyn Marcial RN - 06/25/2020 10:13 AM CDT Images from the original note were not included. Carlie Morlaes MD P [facility] Card Mryvl Clinical Pool ?? Patient with mitral valve prolapse and mitral regurgitation, please review echo results: ??Same as last year, mild to moderate leakage of the mitral valve. ??Continue same. 04/2019 EF 72%, LVH, DD, moderate to severe MVP, iqsz-cs-piupnari MR, mild TR aortic root 4.3 cm, ascending aorta 4.0 cm 05/2020 EF 65-70%, normal LV size, mild LVH, diastolic dysfunction, moderate to severe MVP, gyvn-ym-lltkywju MR, mild TR, mildly dilated aortic root 4.0 cm Called this patient and could not reach him on either phone listed. Will try again later. documented in this encounter Plan of Treatment Not on file documented as of this encounter Visit Diagnoses Not on filedocumented in this encounter Care Teams Batch Records Clerk Relationship Specialty Start Date End Date Jose G Ortiz II, MD [address] [place] [address] PCP - General Family Medicine 05/30/17 documented as of this encounter
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
--- OUTSIDE RECORDS SUMMARY | 2024-09-07 07:22 | XMS_ITS | Encounter Summary ---
Author Organization [facility] Address [address] [place] [address] Care Team Providers Care Tire Recapper Name Role Phone Angel HARPER MD, Jose G Hopson Primary Care Provider Encounter Details Date Type Department Care Team (Late st Contact Info) Description 04/17/2024 Telephone [facility] Cardiology [address] [place] [address] Mattie Henderson MD [address] [place] [address] Social History Tobacco Use Types Packs/Day Years [...] encounter Miscellaneous Notes * Telephone Encounter - Oly Borrero - 04/17/2024 1:21 PM CDT Called pt to offer to move up appt to 04/18/[address] Henderson at [phone]. Pt said he would call back documented in this encounter Plan of Treatment Not on file documented as of this encounter Visit Diagnoses Not on filedocumented in this encounter Care Teams Tire Recapper Relationship Specialty Start Date End Date Jose G Ortiz II, MD [address] [place] [address] PCP - General Family Medicine 05/30/17 documented as of this encounter
--- OUTSIDE RECORDS SUMMARY | 2024-09-07 07:23 | XMS_ITS | Encounter Summary ---
Author Organization [facility] Care Team Providers Care Service And Repair Supervisor Name Role Phone Angel HARPER MD, Jose G Hopson Primary Care Provider Encounter Details Date Type Department Care Team (Latest Contact Info) Description 06/23/2019 Travel Social History Tobacco Use Types Packs/Day Years [...] on filedocumented in this encounter Care Teams Service And Repair Supervisor Relationship Specialty Start Date End Date Jose G Ortiz II, MD [address] [place] [address] PCP - General Family Medicine 05/30/17 documented as of this encounter
--- OUTSIDE RECORDS SUMMARY | 2024-09-07 07:23 | XMS_ITS | Encounter Summary ---
Author Organization [facility] Address [address] [place] [address] Care Team Providers Care Transformer Mechanic Name Role Phone Angel HARPER MD, Jose G Hopson Primary Care Provider Encounter Details Date Type Department Care Team (Late st Contact Info) Description 05/30/2018 Telephone [facility] [address] [facility] [address] [place] [phone] Carlie Morales MD [address] [address] Social History Tobacco Use Types Packs/Day [...] encounter Miscellaneous Notes * Telephone Encounter - Paris Pulido RN - 05/30/2018 4:20 PM CDT Spoke with patient. Had TTE today and was wanting results. Explained that results will not be available until tomorrow. Patient will call back tomorrow. * Telephone Encounter - Alanna José - 05/30/2018 4:13 PM CDT Pt returned call. cb [phone] * Telephone Encounter - Paris Pulido, RN - 05/30/2018 4:08 PM CDT LMTC * Telephone Encounter - Marce Flower - 05/30/2018 4:01 PM CDT Pt will like a call back regarding echo result pt call back [phone] documented in this encounter Plan of Treatment Not on file documented as of this encounter Visit Diagnoses Not on filedocumented in this encounter Care Teams Transformer Mechanic Relationship Specialty Start Date End Date Jose G Ortiz II, MD [address] [place] [address] PCP - General Family Medicine 05/30/17 documented as of this encounter
--- OUTSIDE RECORDS SUMMARY | 2024-09-07 07:23 | XMS_ITS | Encounter Summary ---
Author Organization [facility] Address [address] [facility] [address] [facility] [address] [place] [address] Care Team Providers Care Fish And Wildlife Technician Name Role Phone Angel HARPER MD, Jose G Hopson Primary Care Provider Encounter Details Date Type Department Care Team ([facility] st Contact Info) Description 05/30/2019 Orders Only [facility] [address] [address] [address] [place] [address] ProviderJh MD [address] [place] [address] Social History Tobacco Use Types Packs/Day Years [...] Procedure Name Priority Date/Time Associated Diagnosis Comments COMPREHENSIVE METABOLIC PANEL Routine 12/16/2018 documented in this encounter Results * Comprehensive metabolic panel (12/16/2018) Blood specimen (specimen) Historical Provider LAB BLOOD ORDERABLES Jayde l Result documented in this encounter Visit Diagnoses Not on filedocumented in this encounter Care Teams Fish And Wildlife Technician Relationship Specialty Start Date End Date Jose G Ortiz II, MD [address] [place] [address] PCP - General Family Medicine 05/30/17 documented as of this encounter
--- OUTSIDE RECORDS SUMMARY | 2024-09-07 07:23 | XMS_ITS | Encounter Summary ---
Author Organization [facility] Address [address] [place] [address] Care Team Providers Care Public Service Representative Name Role Phone Angel HARPER MD, Jose G Hopson Primary Care Provider Reason for Visit * (Routine) - Closed Specialty Diagnoses / Procedures Referred By Contac t Referred To Contact Diagnoses Mitral valve prolapse Non-rheumatic mitral regurgitation Procedures Transthoracic Echo Complete W Doppler/CF Fany Hinojosa MD Phone: tel: fax: [facility] Referral ID Status Reason Start Date Expiration Date Visits Re quested Visits Authorized [id number] Closed 06/10/2018 12/20/2019 1 1 Encounter Details Date Type Department Care Team (Latest Contact Info) Description 05/26/2019 9:15 AM CDT Ancillary Procedure [facility] Cardiology [address] [place] [address] Mitral valve prolapse; Non-rheumatic mitral [...] (TTE) COMPLETE W DOPPLER/CF WO CONTRAST Routine 05/26/2019 9:57 AM CDT Mitral valve prolapse Non-rheumatic mitral regurgitation documented in this encounter Results * TRANSTHORACIC ECHO (TTE) COMPLETE W DOPPLER/CF WO CONTRAST (05/26/2019 9:57 AM CDT) Anatomical Region Laterality Modality Ultrasound 05/26/2019 9:02 AM CDT Narrative 05/26/2019 5:58 PM CDT [facility] [address], [place] [address] [address], [place] [address] P:[phone] P:[phone] Echocardiographic Report ADDENDUM Patient Name: LENNY TOLLIVER : 1935 Study Date: 05/26/2019 9:02:24 AM Gender: M Tech: Location: [place] Ref.Provider: ANGEL Height(Cm): 170 BSA: 1.78 Weight(Kg): 67.59 Heart Rate: 63 BP: 126/74 Quality: Good Order Provider: FANY HINOJOSA Procedures: Echocardiographic Report: Transthoracic echocardiogram with complete 2D, M-Mode, and color Doppler examination. Indications: Mitral Valve Prolapse, and Mitral Regurgitation. Measurements: 2D/M Mode ?Doppler ? Measurement ?Value ?Normal Range ? Measurement ?Value ?Normal Range ? EF Mod ? 72 ?AV Mean PG ? 2 ?mmHg ? EF MM ?67 ? [ 55 - 70 ] % ?AV Peak Mario ?0.97 ? m/s ? LVIDd 2D ? 3.94 ? [ 3.90 - 5.30 ] cm ? AV Peak PG ? 4 ?mmHg ? LVIDd MM ? 4.53 ? [ 3.90 - 5.30 ] cm ? AV VTI ? 0.21 ? cm ? LVIDs 2D ? 2.67 ? [ 2.30 - 3.90 ] cm ? LVOT Peak Mario ?0.72 ? [ 0.70 - 1.10 ] m/s ? LVIDs MM ? 2.87 ? [ 2.30 - 3.90 ] cm ? LVOT VTI ? 0.17 ? cm ? LVPWd 2D ? 0.88 ? [ 0.60 - 1.00 ] cm ? MV E Peak Mario ?0.67 ? [ 0.60 - 1.30 ] m/s ? LVPWd MM ? 1.07 ? [ 0.60 - 1.00 ] cm ? MV A Peak Mario ?0.86 ? [ 0.40 - 0.80 ] m/s ? IVSd 2D ?1.19 ? [ 0.60 - 0.90 ] cm ? MV Decel Time ?339 ?[ 150 - 200 ] msec ? IVSd MM ?1.07 ? [ 0.60 - 0.90 ] cm ? PV Peak Mario ?0.86 ? [ 0.40 - 0.80 ] m/s ? LA Dimension MM ?3.87 ? [ 2.70 - 3.80 ] cm ? TR Peak Mario ?2.86 ? [ 0.40 - 0.80 ] m/s ? AoR Diam MM ?3.80 ? [ 2.60 - 3.70 ] cm ? TR Peak PG ? 33 ? mmHg ? LA Volume Index ?35.00 ?[ 16.00 - 28.00 ] cc/m2 ?RVSP ? 41.00 ?mmHg ? ACS MM ? 2.07 ? cm ? E' ? 0.06 ? E/E' ? 12 ? Findings: Interpretation Site: Exam was interpreted at [facility]. Left Ventricle: Normal left ventricular systolic function. No focal wall motion abnormalities. Normal left ventricular size. Mild concentric left ventricular hypertrophy. Paradoxical septal motion consistent with IVCD or bundle branch block. Impaired diastolic relaxation Grade I. Ejection fraction is measured at 72 %. Right Ventricle: Normal right ventricular size. Normal right ventricular systolic function. Left Atrium: The left atrium is normal in size. Right Atrium: The right atrium is normal in size. Atrial Septum: Normal atrial septum. Mitral Valve: Mitral valve leaflets appear mildly thickened. Moderate to severe mitral valve prolapse involving the posterior mitral valve. Mild to moderate mitral valve regurgitation. Aortic Valve: Normal appearance of the aortic valve. No evidence of hemodynamically significant aortic stenosis by Doppler. Trileaflet aortic valve. No aortic regurgitation. Tricuspid Valve: Normal appearance of the tricuspid valve. Mild pulmonary hypertension based on right ventricular systolic pressure. Estimated peak RVSP is 41 mmHg. Mild tricuspid regurgitation. Pulmonic Valve: Pulmonic valve not well visualized. Mild to moderate pulmonic regurgitation. Pericardium: Normal pericardium with no significant pericardial effusion. Aorta: Sinus of Valsalva is normal. Ascending aorta is mildly dilated. Ascending Aorta 4.0 cm. Aortic root is mildly dilated at 4.3cm. Consider CT chest if clinically indicated. Mild aortic root calcification. IVC: Normal size and normal respiratory collapse consistent with normal right atrial pressure (<5 mmHg). Conclusions: Normal left ventricular systolic function. No focal wall motion abnormalities. Normal left ventricular size. Mild concentric left ventricular hypertrophy. Paradoxical septal motion consistent with IVCD or bundle branch block. Impaired diastolic relaxation Grade I. Ejection fraction is measured at 72 %. Mitral valve leaflets appear mildly thickened. Moderate to severe mitral valve prolapse involving the posterior mitral valve. Mild to moderate mitral valve regurgitation. Normal appearance of the tricuspid valve. Mild pulmonary hypertension based on right ventricular systolic pressure. Estimated peak RVSP is 41 mmHg. Mild tricuspid regurgitation. Sinus of Valsalva is normal. Ascending aorta is mildly dilated. Ascending Aorta 4.0 cm. Aortic root is mildly dilated at 4.3cm. Consider CT chest if clinically indicated. Mild aortic root calcification. Normal sinus rhythm. Electronically Signed By: Mark Anthony Ambrose MD 2019-05-26 17:59:06 CDT Procedure Note Pablo Ambrose MD - 05/26/2019 [facility] [address], [place] [address] [id number], [place] [address] P:[phone] P:[phone] Echocardiographic Report ADDENDUM Patient Name: LENNY TOLLIVERPatient ID: [id number] : [id number] Date: 05/26/2019 9:02:24 AM Gender: MAccession #: [id number] Tech: GMLocation: [place] Ref.Provider: Brunaight(Cm): 170 BSA: 1.78Weight(Kg): 67.59 Heart Rate: 63BP: 126/74 Quality: GoodOrder Provider: FANY HINOJOSA Procedures: Echocardiographic Report: Transthoracic echocardiogram with complete 2D, M-Mode, and color Dopplerexamination. Indications: Mitral Valve Prolapse, and Mitral Regurgitation. Measurements: 2D/M Mode Doppler Measurement Value Normal Range MeasurementValue Normal Range EF Mod 72 AV Mean PG 2mmHg EF MM 67 [ 55 - 70 ] % AV Peak Vel0.97 m/s LVIDd 2D 3.94 [ 3.90 - 5.30 ] cm AV Peak PG 4mmHg LVIDd MM 4.53 [ 3.90 - 5.30 ] cm AV VTI0.21 cm LVIDs 2D 2.67 [ 2.30 - 3.90 ] cm LVOT Peak Vel0.72 [ 0.70 - 1.10 ] m/s LVIDs MM 2.87 [ 2.30 - 3.90 ] cm LVOT VTI0.17 cm LVPWd 2D 0.88 [ 0.60 - 1.00 ] cm MV E Peak Vel0.67 [ 0.60 - 1.30 ] m/s LVPWd MM 1.07 [ 0.60 - 1.00 ] cm MV A Peak Vel0.86 [ 0.40 - 0.80 ] m/s IVSd 2D 1.19 [ 0.60 - 0.90 ] cm MV Decel [id number] [ 150 - 200 ] msec IVSd MM 1.07 [ 0.60 - 0.90 ] cm PV Peak Vel0.86 [ 0.40 - 0.80 ] m/s LA Dimension MM 3.87 [ 2.70 - 3.80 ] cm TR Peak Vel2.86 [ 0.40 - 0.80 ] m/s AoR Diam MM 3.80 [ 2.60 - 3.70 ] cm TR Peak PG 33mmHg LA Volume Index 35.00 [ 16.00 - 28.00 ] cc/m2 RVSP41.00 mmHg ACS MM 2.07 cm E'0.06 E/E' 12 Findings: Interpretation Site: Exam was interpreted at [facility]. Left Ventricle: Normal left ventricular systolic function. No focal wall motionabnormalities. Normal left ventricular size. Mild concentric left ventricular hypertrophy.Paradoxical septal motion consistent with IVCD or bundle branch block. Impaired diastolicrelaxation Grade I. Ejection fraction is measured at 72 %. Right Ventricle: Normal right ventricular size. Normal right ventricular systolicfunction. Left Atrium: The left atrium is normal in size. Right Atrium: The right atrium is normal in size. Atrial Septum: Normal atrial septum. Mitral Valve: Mitral valve leaflets appear mildly thickened. Moderate to severe mitralvalve prolapse involving the posterior mitral valve. Mild to moderate mitral valveregurgitation. Aortic Valve: Normal appearance of the aortic valve. No evidence of hemodynamicallysignificant aortic stenosis by Doppler. Trileaflet aortic valve. No aortic regurgitation. Tricuspid Valve: Normal appearance of the tricuspid valve. Mild pulmonary hypertensionbased on right ventricular systolic pressure. Estimated peak RVSP is 41 mmHg. Mildtricuspid regurgitation. Pulmonic Valve: Pulmonic valve not well visualized. Mild to moderate pulmonicregurgitation. Pericardium: Normal pericardium with no significant pericardial effusion. Aorta: Sinus of Valsalva is normal. Ascending aorta is mildly dilated. AscendingAorta 4.0 cm. Aortic root is mildly dilated at 4.3cm. Consider CT chest if clinicallyindicated. Mild aortic root calcification. IVC: Normal size and normal respiratory collapse consistent with normal rightatrial pressure (<5 mmHg). Conclusions: Normal left ventricular systolic function. No focal wall motionabnormalities. Normal left ventricular size. Mild concentric left ventricular hypertrophy.Paradoxical septal motion consistent with IVCD or bundle branch block. Impaired diastolicrelaxation Grade I. Ejection fraction is measured at 72 %. Mitral valve leaflets appear mildly thickened. Moderate to severe mitralvalve prolapse involving the posterior mitral valve. Mild to moderate mitral valveregurgitation. Normal appearance of the tricuspid valve. Mild pulmonary hypertensionbased on right ventricular systolic pressure. Estimated peak RVSP is 41 mmHg. Mildtricuspid regurgitation. Sinus of Valsalva is normal. Ascending aorta is mildly dilated. AscendingAorta 4.0 cm. Aortic root is mildly dilated at 4.3cm. Consider CT chest if clinicallyindicated. Mild aortic root calcification. Normal sinus rhythm. Electronically Signed By: Mark Anthony Ambrose MD 2019-05-26 17:59:06 CDT Fany Hinojosa MD CV ECHO PROCEDURES Edited R esult - Final documented in this encounter Visit Diagnoses Diagnosis Mitral valve prolapse Mitral valve disorders Non-rheumatic mitral regurgitation documented in this encounter Care Teams Public Service Representative Relationship Specialty Start Date End Date Jose G Ortiz II, MD [address] [place] [address] PCP - General Family Medicine 05/30/17 documented as of this encounter
--- OUTSIDE RECORDS SUMMARY | 2024-09-07 07:23 | XMS_ITS | Encounter Summary ---
Author Organization [facility] Address [address] [place] [address] Care Team Providers Care Pest Control Service Technician Name Role Phone Angel HARPER MD, Jose G Hopson Primary Care Provider Encounter Details Date Type Department Care Team (Late st Contact Info) Description 05/30/2019 Telephone [facility] [address] [facility] [address] [facility] [address] [place] [address] Carlie Morales MD [address] [facility] [address] [place] [address] Social History Tobacco Use Types [...] Telephone Encounter - Paris Pulido RN - 05/30/2019 2:57 PM CDT Spoke with patient and discussed echo results. Patient wishes to see Dr. Morales in the office first on 06/23/[address] * Telephone Encounter - Alanna José - 05/30/2019 2:30 PM CDT Pt called for the results of his TTE exam on . [phone] * Telephone Encounter - Paris Pulido RN - 05/30/2019 10:28 AM CDT Found Creatinine of 1.2 in Norm system from 12/16/18. GFR 58. Will scan into chart. * Telephone Encounter - Parsi Pulido RN - 05/30/2019 10:[address] 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 ??Please obtain a CTA of the aorta/ (CT of the chest and abdomen with contrast) to evaluate the aorta further. ??Creatinine was 1.1 in 2017; do we have a more recent creatinine? 05/2018 EF 60-65%, mild LVH, diastolic dysfunction, severe posterior leaflet prolapse, yhsu-st-[id number] MR, moderate TR, RVSP 41 mmHg, ascending aorta 4.5 cm 04/2019 EF 72%, LVH, DD, moderate to severe MVP, ryol-uk-mlddvflj MR, mild TR aortic root 4.3 cm, ascending aorta 4.0 cm f Called to speak with patient and spouse answered. Spouse states that she would rather we speak withpatient about this and he will be home later this afternoon. She will have patient call the office later today. documented in this encounter Plan of Treatment Not on file documented as of this encounter Visit Diagnoses Not on filedocumented in this encounter Care Teams Pest Control Service Technician Relationship Specialty Start Date End Date Jose G Ortiz II, MD [address] [place] [address] PCP - General Family Medicine 05/30/17 documented as of this encounter
--- OUTSIDE RECORDS SUMMARY | 2024-09-07 07:23 | XMS_ITS | Encounter Summary ---
Author Organization [facility] Address [address] [place] [address] Care Team Providers Care Electrician Chief Name Role Phone Angel HARPER MD, Jose G Hopson Primary Care Provider Reason for Visit * Reason Onset Date Comments CT aorta results 06/28/2019 Encounter Details Date Type Department Care Team (Late st Contact Info) Description 06/28/2019 Telephone [facility] [address] [place] [address] Carlie Morales MD [address] [facility] [address] [place] [address] CT aorta results Social History Tobacco Use Types Packs/Day [...] on file documented as of this encounter Ordered Prescriptions Prescription Sig Dispense Quantity Refills Last Filled Start Date End Date metoprolol XL (TOPROL-XL) 25 mg 24 hr tablet Take 1 tablet (25 mg total) by mouth daily 90 tablet 3 06/30/2019 07/05/2020 documented in this encounter Miscellaneous Notes * Addendum Note - Katy Haas RN - 06/30/2019 9:44 AM CSTAddended by: KATY HAAS on: 06/30/2019 09:44 AM Modules accepted: Orders TAL PRODUCTION ARTIST * Telephone Encounter - Katy Haas RN - 06/30/2019 9:41 AM CST Reviewed with pt per EU. 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 This is mild at this time but we will probably recheck it next year. In the unlikely event of problems such as severe intense persistent chest pain he should go to the emergency room. The most important thing is to reduce the blood pressure and stress on his aorta. Recommend adding metoprolol succinate 25 mg daily. If his blood pressure gets too low and he gets dizzy from this then call us. He did have bilateral renal artery stenosis also, but his renal function is normal and that will not need to be specifically addressed. He is already taking aspirin and rosuvastatin which treats thatas well. Pt verbalized understanding. 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 This is mild at this time but we will probably recheck it next year. In the unlikely event of problems such as severe intense persistent chest pain he should go to the emergency room. The most important thing is to reduce the blood pressure and stress on his aorta. Recommend addingmetoprolol succinate 25 mg daily. If his blood pressure gets too low and he gets dizzy from this then call us. He did have bilateral renal artery stenosis also, but his renal function is normal and that will not need to be specifically addressed. He is already taking aspirin and rosuvastatin which treats thatas well. documented in this encounter Plan of Treatment Not on file documented as of this encounter Visit Diagnoses Not on filedocumented in this encounter Care Teams Electrician Chief Relationship Specialty Start Date End Date Jose G Ortiz II, MD [address] [place] [address] PCP - General Family Medicine 05/30/17 documented as of this encounter
--- OUTSIDE RECORDS SUMMARY | 2024-09-07 07:23 | XMS_ITS | Encounter Summary ---
Author Organization [facility] Care Team Providers Care Washing Tub Operator Name Role Phone Angel HARPER MD, Jose G Hopson Primary Care Provider Encounter Details Date Type Department Care Team (Latest Contact Info) Description 05/26/2019 Travel Social History Tobacco Use Types Packs/Day [...] on filedocumented in this encounter Care Teams Washing Tub Operator Relationship Specialty Start Date End Date Jose G Ortiz II, MD [address] [place] [address] PCP - General Family Medicine 05/30/17 documented as of this encounter
--- OUTSIDE RECORDS SUMMARY | 2024-09-07 07:23 | XMS_ITS | Encounter Summary ---
Author Organization [facility] Address [address] [place] [address] Care Team Providers Care Industrial Welder Name Role Phone Angel HARPER MD, Jose G Hopson Primary Care Provider Reason for Visit * Cardiology (Routine) - Closed Specialty Diagnoses / Procedures Referred By Contac t Referred To Contact Diagnoses MVP (mitral valve prolapse) Procedures Transthoracic Echo Complete W Doppler/CF Fany Hinojosa MD Phone: tel: fax: Referral ID Status Reason Start Date Expiration Date Visits Re quested Visits Authorized [id number] Closed 05/30/2017 11/26/2017 1 1 Encounter Details Date Type Department Care Team (Latest Contact Info) Description 05/30/2018 8:15 AM CDT Ancillary Procedure [facility] Cardiology [address] [place] [address] MVP (mitral valve prolapse) Social History Tobacco Use Types Packs/Day Years [...] Pressure - - Pulse - - Temperature - - Respiratory Rate - - Oxygen Saturation - - Inhaled Oxygen Concentration - - Weight 68 kg (150 lb) 05/30/2018 8:12 AM CDT Height 170.2 cm (5' 7 ) 05/30/2018 8:12 AM CDT Body Mass Index 23.49 05/30/2018 8:12 AM CDT documented in this encounter Plan of Treatment Not on file documented as of this encounter Procedures Procedure Name Priority Date/Time Associated Diagnosis Comments TRANSTHORACIC ECHO (TTE) COMPLETE W DOPPLER/CF WO CONTRAST Routine 05/30/2018 8:57 AM CDT MVP (mitral valve prolapse) documented in this encounter Results * TRANSTHORACIC ECHO (TTE) COMPLETE W DOPPLER/CF WO CONTRAST (05/30/2018 8:57 AM CDT) Anatomical Region Laterality Modality Ultrasound 05/30/2018 8:03 AM CDT Narrative 05/30/2018 5:10 PM CDT [facility] [address], [place] [address] [address] [facility] [address], [place] [address] P:[phone] P:[phone] Echocardiographic Report Patient Name: LENNY TOLLIVER : 1935 Study Date: 05/30/2018 8:03:24 AM Gender: M Tech: GM ? Location: [place] ? Ref.Physician: JOSE G ORTIZ ?Height(Cm): 170 ? BSA: 1.79 Weight(Kg): 68.04 Heart Rate: 56BP: 121/63 Quality: Good Order Physician: FANY HINOJOSA Procedures: Echocardiographic Report: Transthoracic echocardiogram with complete 2D, M-Mode, and color Doppler examination. Indications: Mitral Valve Prolapse. Measurements: 2D/M Mode ?Doppler ? Measurement ?Value ?Normal Range ? Measurement ?Value ?Normal Range ? EF Mod ? 65 ?AV Mean PG ? 2 ?mmHg ? EF MM ?65 ? [ 55 - 70 ] % ?AV Peak Mario ?1.03 ? m/s ? LVIDd 2D ? 3.62 ? [ 3.90 - 5.30 ] cm ? AV Peak PG ? 4 ?mmHg ? LVIDd MM ? 5.53 ? [ 3.90 - 5.30 ] cm ? AV VTI ? 0.21 ? cm ? LVIDs 2D ? 2.30 ? [ 2.30 - 3.90 ] cm ? LVOT Peak Mario ?0.67 ? [ 0.70 - 1.10 ] m/s ? LVIDs MM ? 3.53 ? [ 2.30 - 3.90 ] cm ? LVOT VTI ? 0.19 ? cm ? LVPWd 2D ? 1.05 ? [ 0.60 - 1.00 ] cm ? MV E Peak Mario ?0.66 ? [ 0.60 - 1.30 ] m/s ? LVPWd MM ? 1.07 ? [ 0.60 - 1.00 ] cm ? MV A Peak Mario ?0.73 ? [ 0.40 - 0.80 ] m/s ? IVSd 2D ?1.05 ? [ 0.60 - 0.90 ] cm ? MV Decel Time ?342 ?[ 150 - 200 ] msec ? IVSd MM ?1.07 ? [ 0.60 - 0.90 ] cm ? PV Peak Mario ?1.03 ? [ 0.40 - 0.80 ] m/s ? LA Dimension MM ?3.93 ? [ 2.70 - 3.80 ] cm ? TR Peak Mario ?2.89 ? [ 0.40 - 0.80 ] m/s ? AoR Diam MM ?4.20 ? [ 2.60 - 3.70 ] cm ? TR Peak PG ? 33 ? mmHg ? LA Volume Index ?29.00 ?[ 16.00 - 28.00 ] cc/m2 ?RVSP ? 41.00 ?mmHg ? ACS MM ? 2.00 ? cm ? E' ? 0.08 ? E/E' ? 8 ? Findings: Interpretation Site: Exam was interpreted at [facility]. Left Ventricle: Normal left ventricular systolic function. No focal wall motion abnormalities. Mild concentric left ventricular hypertrophy. Mild enlargement of left ventricle cavity. Impaired diastolic relaxation Grade I. Ejection fraction is visually estimated at 60-65 %. Ejection fraction is measured at 65 %. Right Ventricle: Normal right ventricular size. Normal right ventricular systolic function. Left Atrium: There is moderate enlargement of left atrium. Right Atrium: There is mild enlargement of right atrium. Atrial Septum: Normal atrial septum. Mitral Valve: Severe mitral valve prolapse involving the posterior mitral [...] pressure. Estimated peak RVSP is 41 mmHg. Moderate tricuspid regurgitation. Pulmonic Valve: Normal appearance of the pulmonic valve. No pulmonic stenosis. Moderate pulmonic regurgitation. Pericardium: Normal pericardium with no significant pericardial effusion. Aorta: Ascending aorta is moderately dilated. Ascending Aorta 4.5 cm. The aortic root is dilated at 4.2 cm. IVC: Normal size and normal respiratory collapse consistent with normal right atrial pressure (<5 mmHg). Conclusions: Normal left ventricular systolic function. No focal wall motion abnormalities. Mild concentric left ventricular hypertrophy. Mild enlargement of left ventricle cavity. Impaired diastolic relaxation Grade I. Ejection fraction is visually estimated at 60-65 %. Ejection fraction is measured at 65 %. There is moderate enlargement of left atrium. There is mild enlargement of right atrium. Severe mitral valve prolapse involving the posterior mitral valve. Mild to moderate mitral valve regurgitation. Mild pulmonary hypertension based on right ventricular systolic pressure. Estimated peak RVSP is 41 mmHg. Moderate tricuspid regurgitation. Moderate pulmonic regurgitation. Ascending aorta is moderately dilated. Ascending Aorta 4.5 cm. The aortic root is dilated at 4.2 cm. Normal sinus rhythm. Electronically Signed By: Venancio Arreguin MD 2018-05-30 17:10:42 CDT CC: CC: Procedure Note Venancio Arreguin MD - 05/30/2018 [facility] [address] [facility] [address], [place] [address] [address] [facility] [address], [place] [address] P:[phone] P:[phone] Echocardiographic Report Patient Name: LENNY TOLLIVERPatient ID: [id number] : [id number] Date: 05/30/2018 8:03:24 AM Gender: MAccession #: [id number] Tech: Location: [place] Ref.Physician: JOSE G ORTIZ Height(Cm): 170 BSA: 1.79Weight(Kg): 68.04 Heart Rate: 56BP: 121/63 Quality: GoodOrder Physician: FANY HINOJOSA Procedures: Echocardiographic Report: Transthoracic echocardiogram with complete 2D, M-Mode, and color Dopplerexamination. Indications: Mitral Valve Prolapse. Measurements: 2D/M Mode Doppler Measurement Value Normal Range MeasurementValue Normal Range EF Mod 65 AV Mean PG 2mmHg EF MM 65 [ 55 - 70 ] % AV Peak Vel1.03 m/s LVIDd 2D 3.62 [ 3.90 - 5.30 ] cm AV Peak PG 4mmHg LVIDd MM 5.53 [ 3.90 - 5.30 ] cm AV VTI0.21 cm LVIDs 2D 2.30 [ 2.30 - 3.90 ] cm LVOT Peak Vel0.67 [ 0.70 - 1.10 ] m/s LVIDs MM 3.53 [ 2.30 - 3.90 ] cm LVOT VTI0.19 cm LVPWd 2D 1.05 [ 0.60 - 1.00 ] cm MV E Peak Vel0.66 [ 0.60 - 1.30 ] m/s LVPWd MM 1.07 [ 0.60 - 1.00 ] cm MV A Peak Vel0.73 [ 0.40 - 0.80 ] m/s IVSd 2D 1.05 [ 0.60 - 0.90 ] cm MV Decel [id number] [ 150 - 200 ] msec IVSd MM 1.07 [ 0.60 - 0.90 ] cm PV Peak Vel1.03 [ 0.40 - 0.80 ] m/s LA Dimension MM 3.93 [ 2.70 - 3.80 ] cm TR Peak Vel2.89 [ 0.40 - 0.80 ] m/s AoR Diam MM 4.20 [ 2.60 - 3.70 ] cm TR Peak PG 33mmHg LA Volume Index 29.00 [ 16.00 - 28.00 ] cc/m2 RVSP41.00 mmHg ACS MM 2.00 cm E'0.08 E/E' 8 Findings: Interpretation Site: Exam was interpreted at [facility]. Left Ventricle: Normal left ventricular systolic function. No focal wall motionabnormalities. Mild concentric left ventricular hypertrophy. Mild enlargement of leftventricle cavity. Impaired diastolic relaxation Grade I. Ejection fraction is visuallyestimated at 60-65 %. Ejection fraction is measured at 65 %. Right Ventricle: Normal right ventricular size. Normal right ventricular systolicfunction. Left Atrium: There is moderate enlargement of left atrium. Right Atrium: There is mild enlargement of right atrium. Atrial Septum: Normal atrial septum. Mitral Valve: Severe mitral valve prolapse involving the posterior mitral valve. Mild tomoderate mitral valve regurgitation. There is no hemodynamically significant mitralstenosis by Doppler. Aortic Valve: No evidence of hemodynamically significant aortic stenosis by Doppler.Aortic cusps appear mildly sclerotic. Trileaflet aortic valve. Trace aortic valveregurgitation. Tricuspid Valve: Normal appearance of the tricuspid valve. Mild pulmonary hypertensionbased on right ventricular systolic pressure. Estimated peak RVSP is 41 mmHg. Moderatetricuspid regurgitation. Pulmonic Valve: Normal appearance of the pulmonic valve. No pulmonic stenosis. Moderatepulmonic regurgitation. Pericardium: Normal pericardium with no significant pericardial effusion. Aorta: Ascending aorta is moderately dilated. Ascending Aorta 4.5 cm. The aorticroot is dilated at 4.2 cm. IVC: Normal size and normal respiratory collapse consistent with normal rightatrial pressure (<5 mmHg). Conclusions: Normal left ventricular systolic function. No focal wall motionabnormalities. Mild concentric left ventricular hypertrophy. Mild enlargement of leftventricle cavity. Impaired diastolic relaxation Grade I. Ejection fraction is visuallyestimated at 60-65 %. Ejection fraction is measured at 65 %. There is moderate enlargement of left atrium. There is mild enlargement of right atrium. Severe mitral valve prolapse involving the posterior mitral valve. Mild tomoderate mitral valve regurgitation. Mild pulmonary hypertension based on right ventricular systolic pressure.Estimated peak RVSP is 41 mmHg. Moderate tricuspid regurgitation. Moderate pulmonic regurgitation. Ascending aorta is moderately dilated. Ascending Aorta 4.5 cm. The aorticroot is dilated at 4.2 cm. Normal sinus rhythm. Electronically Signed By: Venancio Arreguin MD 2018-05-30 17:10:42 CDT CC: CC: us Fany Hinojosa MD CV ECHO PROCEDURES Final Re sult documented in this encounter Visit Diagnoses Diagnosis MVP (mitral valve prolapse) Mitral valve disorders documented in this encounter Care Teams Industrial Welder Relationship Specialty Start Date End Date Jose G Ortiz II, MD [address] [place] [address] PCP - General Family Medicine 05/30/17 documented as of this encounter
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
--- OUTSIDE RECORDS SUMMARY | 2024-09-07 07:23 | XMS_ITS | Encounter Summary ---
Author Organization [facility] Address [address] [facility] [address] [facility] [address] [place] [address] Care Team Providers Care Wrapper Cashier Name Role Phone Angel HARPER MD, Jose G Hopson Primary Care Provider Encounter Details Date Type Department Care Team (Late st Contact Info) Description 06/04/2017 Orders Only [facility] Cardiology [address] [place] [address] ProviderJh MD [address] [place] [address] Social History Tobacco Use Types Packs/Day [...] Date/Time Associated Diagnosis Comments TRANSTHORACIC ECHO (TTE) COM PLETE W DOPPLER/CF Routine 05/16/2017 documented in this encounter Results * Transthoracic Echo Complete W Doppler/CF (05/16/2017) Anatomical Region Laterality Modality Ultrasound Historical Provider CV ECHO PROCEDURES Final Result documented in this encounter Visit Diagnoses Not on filedocumented in this encounter Care Teams Wrapper Cashier Relationship Specialty Start Date End Date Jose G Ortiz II, MD [address] [place] [address] PCP - General Family Medicine 05/30/17 documented as of this encounter
--- OUTSIDE RECORDS SUMMARY | 2024-09-07 07:23 | XMS_ITS | Encounter Summary ---
Author Organization [facility] Address [address] [facility] [address] [place] [address] Care Team Providers Care Clinical Project Manager Name Role Phone Angel HARPER MD, Jose G Hopson Primary Care Provider Encounter Details Date Type Department Care Team (Late st Contact Info) Description 06/23/2019 Orders Only [facility] [address] [address] [address] [place] [address] ProviderJh MD [address] [place] [address] Social History Tobacco Use Types Packs/Day [...] Procedure Name Priority Date/Time Associated Diagnosis Comments CARDIOLOGY DOCUMENT SCAN Routine 06/23/2019 documented in this encounter Results * SCAN - CARDIOLOGY (06/23/2019) Anatomical Region Laterality Modality Other Historical Provider CV CARDIAC SERVICES LOW RAMIREZ Final Result documented in this encounter Visit Diagnoses Not on filedocumented in this encounter Care Teams Clinical Project Manager Relationship Specialty Start Date End Date Jose G Ortiz II, MD [address] [place] [address] PCP - General Family Medicine 05/30/17 documented as of this encounter
--- OUTSIDE RECORDS SUMMARY | 2024-09-07 07:23 | XMS_ITS | Encounter Summary ---
Author Organization [facility] Address [address] [place] [address] Care Team Providers Care Hand Sizer Name Role Phone Angel HARPER MD, Jose G Hopson Primary Care Provider Reason for Referral * (Routine) - Closed Specialty Diagnoses / Procedures Referred By Contac t Referred To Contact Diagnoses Mitral valve prolapse Non-rheumatic mitral regurgitation Procedures Transthoracic Echo Complete W Doppler/CF Fany Hinojosa MD Phone: tel: fax: [facility] Referral ID Status Reason Start Date Expiration Date Visits Re quested Visits Authorized [id number] Closed 06/10/2018 12/20/2019 1 1 Reason for Visit * Reason Comments Follow-up No problem Encounter Details Date Type Department Care Team (Latest Contact Info) Description 06/10/2018 9:45 AM CDT Office Visit [facility] [address] [facility] [address] [address] Fany Hinojosa MD [address] [place] [id number] Mitral valve prolapse (Primary Dx); Non-rheumatic mitral regurgitation; Hypercholesteremia; Benign essential HTN; Old cerebrovascular accident (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; Aortic root enlargement (CMS/HCC) Social History Tobacco Use Types Packs/Day Years Used Date Smoking Tobacco: Never Smokeless Tobacco: Never Tobacco Cessation:Counseling Given: Yes Alcohol Use Standard Drinks/Week Comments No 0 (1 standard drink = 0.6 oz pur e alcohol) Sex and Gender Information Value Date Recorded Sex Assigned at Not on file Legal Sex Male 1:18 PM CDT Gender Identity Not on file Sexual Orientation Not on file documented as of this encounter Last Filed Vital Signs Vital Sign Reading Time Taken Comments Blood Pressure 122/74 06/10/2018 10:07 AM CDT Pulse 63 06/10/2018 10:07 AM CDT Temperature - - Respiratory Rate - - Oxygen Saturation 94% 06/10/2018 10:07 AM CDT Inhaled Oxygen Concentration - - Weight 67.8 kg (149 lb 6.4 oz) 06/10/2018 10:07 AM CDT Height 170.2 cm (5' 7 ) 06/10/2018 10:07 AM CDT Body Mass Index 23.4 06/10/2018 10:07 AM CDT documented in this encounter Progress Notes * Fany Hinojosa MD - 06/10/2018 9:45 AM CDT [facility] DATE OF VISIT: 06/10/2018 DATE: 1935 CHIEF COMPLAINT Chief Complaint Patient presents with ??? 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 Bp well controlled. Labs: 04/2017 chol 125, LDL 46, TG 94, creat 1.1, glu 90 Blood cultures were all negative. Sed rate was 5. 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 MEDICAL HISTORY Past Medical History: Diagnosis Date ??? Anxiety ??? Appendicitis ??? Carotid artery disease (CMS/HCC) 2007 Left carotid occl ??? Cataracts, bilateral ??? Hyperlipidemia ??? Hypertension ??? Mitral valve prolapse 2016 MVP w/ mild to mod MR ??? Stroke (CMS/HCC) ??? Valvular disease Social History Substance Use Topics ??? Smoking status: Never Smoker ??? Smokeless tobacco: Never Used ??? Alcohol use No Family History Problem Relation Age of Onset ??? Heart failure Mother ??? Bladder Cancer Father MEDICATIONS Current Outpatient Prescriptions: ??? ALPRAZolam (XANAX) 0.25 mg tablet, Take 0.25 mg by mouth nightly as needed for anxiety., Disp: , Rfl: ??? aspirin 325 mg tablet, Take 325 mg by mouth daily., Disp: , Rfl: ??? HYDROcodone-acetaminophen (NORCO) 7.5-325 mg per tablet, Take 1 tablet by mouth every 6 (six) hours as needed for pain., Disp: , Rfl: ??? lisinopril (PRINIVIL,ZESTRIL) 20 mg tablet, Take 20 mg by mouth daily., Disp: , Rfl: ??? rosuvastatin (CRESTOR) 10 mg tablet, Take 10 mg by mouth daily., Disp: , Rfl: ??? tamsulosin (FLOMAX) 0.4 mg capsule,extended release 24hr, 0.4 mg., Disp: , Rfl: ??? zolpidem (AMBIEN) 5 mg tablet, Take 5 mg by mouth nightly as needed for sleep., Disp: , Rfl: ALLERGIES Allergies Allergen Reactions ??? Cephalexin Vomiting ??? Penicillins Vomiting ??? Sulfamethizole Vomiting ??? Trimethoprim Vomiting REVIEW OF SYSTEMS Review of Systems Constitution: Positive for malaise/fatigue. HENT: Negative for congestion. Eyes: Negative for visual disturbance. Cardiovascular: Negative for chest pain, dyspnea on exertion and syncope. Respiratory: Negative for shortness of breath. Hematologic/Lymphatic: Negative for bleeding problem. Bruises/bleeds easily. Gastrointestinal: Negative for abdominal pain. Genitourinary: Negative for hematuria. Neurological: Negative for dizziness. Psychiatric/Behavioral: Negative for depression. PHYSICAL EXAM Blood pressure 122/74, pulse 63, height 170.2 cm (5' 7 ), weight 67.8 kg (149 lb 6.4 oz), SpO2 94 %. Body mass index is 23.4 kg/m??. Physical Exam Constitutional: He is oriented to person, place, and time. He appears well- developed and well-nourished. Pleasant older WM accom by , some ahasia but generally fluid speech. Neck: No thyromegaly present. Cardiovascular: Normal rate and regular rhythm. Murmur (1/6 apical murmur) heard. Pulses: Carotid pulses are 2+ on the right side, and 2+ on the left side. Pulmonary/Chest: Effort normal and breath sounds normal. No respiratory distress. Abdominal: Soft. He exhibits no distension. Musculoskeletal: He exhibits no edema. Neurological: He is alert and oriented [...] found for: CALCIUM, ALKPHOS, AST, ALT, BILITOT ASSESSMENT Diagnoses and all orders for this visit: Mitral valve prolapse (Primary) - Transthoracic Echo Complete W Doppler/CF; Future Non-rheumatic mitral regurgitation - Transthoracic Echo Complete W Doppler/CF; Future Hypercholesteremia - POCT lipid panel Benign essential HTN Old cerebrovascular accident (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 - POCT lipid panel Aortic root enlargement (CMS/HCC) Patient has significant mitral valve prolapse but fortunately only zzxi-fs-majbznas mitral regurgitation. He is asymptomatic with good left ventricular function and no left ventricular dilatation. Does have moderate tricuspid regurgitation and pulmonic insufficiency as well. Discussed mitral valve prolapse with the patient. Occasionally there was an abrupt change in symptoms if there is a torn cord and severe MR. Occasionally it is associated with arrhythmias such as atrial fibrillation. Hopefully his regurgitation will remain stable. Some enlargement of the aortic root and proximal aorta were noted on the last exam. Blood pressure appears well controlled. Has a history of stroke and apparently carotid disease which is followed with carotid ultrasounds by Dr. Ortiz. Cholesterol is well controlled, with an LDL of 91 today, taking Crestor 10 mg daily. PLAN/RECOMMENDATIONS Echo in 1 year Follow-up office visit 1 year Patient may need CTA of the aorta if the next echo confirms enlargement of the ascending aorta. Continue statin and aspirin for cerebrovascular disease, and follow-up with Dr. Ortiz. Fany Hinojosa MD, [facility] Office: [phone] or [phone] This note is dictated and transcribed by with assistance from [employer].?? Truck Loader variances may occur. Despite proofreading, typographical errors may occur. documented in this encounter Plan of Treatment Not on file documented as of this encounter Procedures Procedure Name Priority Date/Time Associated Diagnosis Comments POCT LIPID PANEL Routine 06/10/2018 11:1 2 AM CDT Hypercholesteremia Old cerebrovascular accident (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 documented in this encounter Results * TRANSTHORACIC ECHO (TTE) COMPLETE W DOPPLER/CF WO CONTRAST (05/26/2019 9:57 AM CDT) Anatomical Region Laterality Modality Ultrasound 05/26/2019 9:02 AM CDT Narrative 05/26/2019 5:58 PM CDT [facility] [address], [place] [address] [address], [place] [address] P:[phone] P:[phone] Echocardiographic Report ADDENDUM Patient Name: LENNY TOLLIVER : 1935 Study Date: 05/26/2019 9:02:24 AM Gender: M Tech: Location: [place] Ref.Provider: ANGEL Height(Cm): 170 BSA: 1.78 Weight(Kg): [...] Site: Exam was interpreted at [facility]. Left Ventricle: Normal left ventricular systolic [...] - 05/26/2019 [facility] [address] [facility] [address], [place] [address] [address] [facility] [address], [place] [address] P:[phone] P:[phone] Echocardiographic Report ADDENDUM Patient Name: LENNY TOLLIVERPatient ID: [id number] : [id number] Date: 05/26/2019 9:02:24 AM Gender: MAccession #: [id number] Tech: GMLocation: [place] Ref.Provider: Brunaight(Cm): 170 BSA: 1.78Weight(Kg): 67.59 Heart [...] 0.60 - 0.90 ] cm MV Decel [id number] [ 150 - 200 ] msec IVSd [...] Site: Exam was interpreted at [facility]. Left Ventricle: Normal left ventricular systolic [...] Mark Anthony Ambrose MD 2019-05-26 17:59:06 CDT us Fany Hinojosa MD CV ECHO PROCEDURES Edited R esult - Final * POCT lipid panel (06/10/2018 11:12 AM CDT) Cholesterol, POC 140 mg/dL HDL, POC 49 mg/dL Triglycerides, POC 120 mg/dL LDL Cholesterol POC 67 mg/dL Chol/HDL Ratio, POC 2.8 Non-HDL Cholesterol, POC 91 mg/dL Cholesterol Total, POC 140 mg/dL Blood specimen (specimen) 06/10/2018 11:12 AM CDT us Fany Hinojosa MD POINT OF CARE TEST ORDERABL ES Final Result documented in this encounter Visit Diagnoses Diagnosis Mitral valve prolapse- Primary Mitral valve disorders Non-rheumatic mitral regurgitation Hypercholesteremia Pure hypercholesterolemia Benign essential HTN Old cerebrovascular accident (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 Aortic root enlargement (CMS/HCC) (HCC) Mitral valve prolapse Mitral valve disorders Non-rheumatic mitral regurgitation documented in this encounter Discontinued Medications Medication Sig Discontinue Reason Start Date End Da te aspirin 81 mg tablet Take 81 mg by mouth daily. Discontinued by another clinician 06/10/2018 simvastatin (ZOCOR) 80 mg tablet Take 80 mg by mouth nightly. Discontinued by another clinician 06/10/2018 documented as of this encounter Historical Medications * This list may reflect changes made after this encounter. rosuvastatin (CRESTOR) 10 mg tablet Take 1 tablet (10 mg total) by mouth daily 03/19/2018 aspirin 325 mg tablet Take 1 tablet (325 mg total) by mouth daily added in this encounter Care Teams Hand Sizer Relationship Specialty Start Date End Date Jose G Ortiz II, MD [address] [place] [address] PCP - General Family Medicine 05/30/17 documented as of this encounter
--- OUTSIDE RECORDS SUMMARY | 2024-09-07 07:23 | XMS_ITS | Encounter Summary ---
Author Organization [facility] Address [address] [place] [address] Care Team Providers Care Floor Layer Apprentice Name Role Phone Angel HARPER MD, Jose G Hopson Primary Care Provider Encounter Details Date Type Department Care Team (Late st Contact Info) Description 06/03/2018 Telephone [facility] [address] [facility] [address] [place] [phone] Carlie Morales MD [address] [address] Social History Tobacco Use Types [...] encounter Miscellaneous Notes * Telephone Encounter - Yola Mejia RN - 06/03/2018 8:32 AM CDT ----- Message from Carlie Morales MD sent at 06/02/2018 11:25 PM CDT ----- Pt w/ MVP and mild to mod MR. Please tell him this Echo showed no worsening of MR, strong heart, some other valves have some mild to moderate leakage; not likely to cause any problems. Some enlargement of ascending aorta, which we will check periodically. Has FU appt w/ me Jun 10. Spoke to pt; Given echo results per ELU; He voiced understanding. documented in this encounter Plan of Treatment Not on file documented as of this encounter Visit Diagnoses Not on filedocumented in this encounter Care Teams Floor Layer Apprentice Relationship Specialty Start Date End Date Jose G Ortiz II, MD [address] [place] [address] PCP - General Family Medicine 05/30/17 documented as of this encounter
--- OUTSIDE RECORDS SUMMARY | 2024-09-07 07:23 | XMS_ITS | Encounter Summary ---
Author Organization [facility] Address [address] [facility] [facility] [address] [place] [address] Care Team Providers Care Renewals Manager Name Role Phone Angel HARPER MD, Jose G Hopson Primary Care Provider Reason for Referral * Diagnostic Imaging (Routine) - Closed Specialty Diagnoses / Procedures Referred By Contac t Referred To Contact Radiology Procedures CT Chest W Contrast [facility] [address] [facility] [address] [place] [address] Phone: tel: fax: Referral ID Status Reason Start Date Expiration Date Visits Re quested Visits Authorized [id number] Closed 06/26/2019 01/04/2021 1 1 Encounter Details Date Type Department Care Team (Late st Contact Info) Description 06/26/2019 Orders Only [facility] [address] [place] [address] [address] [place] [address] Jh Loaiza MD [address] [place] [address] Social History Tobacco Use Types Packs/Day [...] Procedure Name Priority Date/Time Associated Diagnosis Comments CT CHEST W CONTRAST Schedule Routine, Re ad Routine (OP Routine) 06/25/2019 documented in this encounter Results * CT Chest W Contrast (06/25/2019) Anatomical Region Laterality Modality Body N/A Computed Tomogra phy us Historical Provider MD ROMERO CT PROCEDURES Final R esult documented in this encounter Visit Diagnoses Not on filedocumented in this encounter Care Teams Renewals Manager Relationship Specialty Start Date End Date Jose G Ortiz II, MD [address] [place] [address] PCP - General Family Medicine 05/30/17 documented as of this encounter
--- OUTSIDE RECORDS SUMMARY | 2024-09-07 07:24 | XMS_ITS | Encounter Summary ---
Author Organization [facility] Address [address] [facility] [address] [place] [address] Care Team Providers Care Atomic Spectroscopist Name Role Phone Angel HARPER MD, Jose G Hopson Primary Care Provider Reason for Visit * Reason Comments Hospital Follow Up Encounter Details Date Type Department Care Team (Latest Contact Info) Description 05/30/2017 3:45 PM CDT Office Visit [facility] [address] [facility] [address] [place] [address] Carlie Morales MD [address] [place] [address] Mitral valve prolapse (Primary Dx); Benign essential HTN; Occlusion and stenosis of carotid artery; Old cerebrovascular accident (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; [...] Sign Reading Time Taken Comments Blood Pressure 136/86 05/30/2017 3:47 PM CDT Pulse 72 05/30/2017 3:47 PM CDT Temperature - - Respiratory Rate 16 05/30/2017 3:47 PM CDT Oxygen Saturation - - Inhaled Oxygen Concentration - - Weight 68 kg (150 lb) 05/30/2017 3:47 PM CDT Height 170.2 cm (5' 7 ) 05/30/2017 3:47 PM CDT Body Mass Index 23.49 05/30/2017 3:47 PM CDT documented in this encounter Progress Notes * Carlie Morales MD - 05/30/2017 3:45 PM CDT Subjective/Objective Patient ID: Tanner Tolliver is a 82 y.o. male. 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 Patient was hospitalized in April with confusion and fever. There was a question of mitral valve endocarditis. Transesophageal echo suggested a very abnormal valve with myxomatous degeneration and moderate prolapse with kdiq-rb-vgkyfpdj mitral regurgitation, EF 60%, mild aortic atherosclerosis but no definite vegetations. ESR was 5. He was sent home with dx heat stroke for office follow-up. 03/30/2017 Ov: Pt has been doing well since discharge, playing golf every day. Everything is back to normal. No more periods of confusion. Took temperature once, said it was Ok, doesn't think he has any fevers. No rash. Labs: 04/2017 chol 125, LDL 46, TG 94, creat 1.1, glu 90 Blood cultures were all negative. Sed rate was 5. Current Outpatient Prescriptions: ??? ALPRAZolam (XANAX) 0.25 mg tablet, Take 0.25 mg by mouth nightly as needed for anxiety., Disp: , Rfl: ??? aspirin 81 mg tablet, Take 81 mg by mouth daily., Disp: , Rfl: ??? HYDROcodone-acetaminophen (NORCO) 7.5-325 mg per tablet, Take 1 tablet by mouth every 6 (six) hours as needed for pain., Disp: , Rfl: ??? lisinopril (PRINIVIL,ZESTRIL) 20 mg tablet, Take 20 mg by mouth daily., Disp: , Rfl: ??? simvastatin (ZOCOR) 80 mg tablet, Take 80 mg by mouth nightly., Disp: , Rfl: ??? tamsulosin (FLOMAX) 0.4 mg capsule,extended release 24hr, 0.4 mg., Disp: , Rfl: ??? zolpidem (AMBIEN) 5 mg tablet, Take 5 mg by mouth nightly as needed for sleep., Disp: , Rfl: HPI Past Medical History: Diagnosis Date ??? Anxiety ??? Appendicitis ??? Carotid artery disease (CMS/HCC) 2007 Left carotid occl ??? Cataracts, bilateral ??? Hyperlipidemia ??? Hypertension ??? Mitral valve prolapse 2017 MVP w/ mild to mod MR ??? Stroke (CMS/HCC) ??? Valvular disease Social History Social History ??? Marital status: Spouse name: N/A ??? Number of children: N/A ??? Years of education: N/A Occupational History ??? Not on file. Social History Main Topics ??? Smoking status: Never Smoker ??? Smokeless tobacco: Never Used ??? Alcohol use No ??? Drug use: No ??? Sexual activity: Not on file Other Topics Concern ??? Not on file Social History Narrative ??? No narrative on file Family History Problem Relation Age of Onset ??? Heart failure Mother ??? Bladder Cancer Father Review of Systems Constitution: Negative for malaise/fatigue. HENT: Negative for congestion. Eyes: Negative for visual disturbance. Cardiovascular: Negative for chest pain, dyspnea on exertion and syncope. Respiratory: Negative for shortness of breath. Hematologic/Lymphatic: Negative for bleeding problem. Gastrointestinal: Negative for abdominal pain. Genitourinary: Negative for hematuria. Neurological: Negative for dizziness. Psychiatric/Behavioral: Negative for depression. BP 136/86 (BP Location: Left arm, Patient Position: Sitting) Pulse 72 Resp 16 Ht 170.2 cm (5' 7 ) Wt 68 kg (150 lb) BMI 23.49 kg/m?? Physical Exam Constitutional: He is oriented to person, place, and time. He appears well- developed and well-nourished. Neck: No thyromegaly present. Cardiovascular: Normal rate and regular rhythm. Murmur (2/6 KATHRYN lsb and apex) heard. Pulses: Carotid pulses are 2+ on the right side, and 2+ on the left side. Pulmonary/Chest: Effort normal and breath sounds normal. No respiratory distress. Abdominal: Soft. He exhibits no distension. Musculoskeletal: He exhibits no edema. Neurological: He is alert and oriented to person, place, and time. Skin: Skin is warm and dry. Psychiatric: His affect is labile. His speech is slurred (Mild slurring and aphasia). Choked up when speaking about his father (did same in hosp) who a few decades ago. Assessment/Plan Diagnoses and all orders for this visit: 1. Mitral valve prolapse (Primary) 2. Benign essential HTN 3. Occlusion and stenosis of carotid artery 4. 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 Hypercholesteremia Other orders - Transthoracic Echo Complete W Doppler/CF; Future Assessment: Regarding mitral valve, the patient has newly diagnosed with significant mitral valve prolapse gnqzwfqa-bk-tutimaom mitral regurgitation. Currently asymptomatic with good LV function but will need periodic re-evaluation. Discussed the possibility of progression, also the small but present abrupt change with a chordal rupture and severe mitral regurgitation as well as the possibility of a arrhythmias. Regarding the patient's fever, the blood cultures were negative, sed rate was 5, and he does not have any stigmata of endocarditis. He probably did have heat stroke. Regarding carotid disease, the patient has great cholesterol, good blood pressure control and is taking aspirin, with no recurrent stroke-like symptoms Plan: Continue current medical therapy Echo in 1 year Office visit in 1 year documented in this encounter Plan of Treatment Not on file documented as of this encounter Visit Diagnoses Diagnosis Mitral valve prolapse- Primary Mitral valve disorders Benign essential HTN Occlusion and stenosis of carotid artery Old cerebrovascular accident (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 Hypercholesteremia Pure hypercholesterolemia documented in this encounter Historical Medications * This list may reflect changes made after this encounter. zolpidem (AMBIEN) 5 mg tabletIndications :Sleep-Onset Insomnia Take 1 tablet (5 mg total) by mouth nightly as needed for sleep tamsulosin (FLOMAX) 0.4 mg capsule,extended release 24hr 1 capsule (0.4 mg total) HYDROcodone-aceta minophen (NORCO) 7.5-325 mg per tabletIndications :Pain Take 1 tablet by mouth every 6 (six) hours as needed for pain ALPRAZolam (XANAX) 0.25 mg tablet Take 1 tablet (0.25 mg total) by mouth nightly as needed for anxiety simvastatin (ZOCOR) 80 mg tablet Take 80 mg by mouth nightly. 06/10/2018 lisinopril (PRINIVIL,ZESTRIL ) 20 mg tablet Take 20 mg by mouth daily. 06/23/2019 aspirin 81 mg tablet Take 81 mg by mouth daily. 06/10/2018 added in this encounter Care Teams Atomic Spectroscopist Relationship Specialty Start Date End Date Jose G Ortiz II, MD [address] [place] [address] PCP - General Family Medicine 05/30/17 documented as of this encounter
--- OUTSIDE RECORDS SUMMARY | 2024-09-07 07:46 | XMS_ITS | Encounter Summary ---
Author Organization [facility] Address [address] [place] [address]. [place], [place] [id number] [place] [address] Care Team Providers Care Hosiery Knitter Name Role Phone Unavailable Primary Care Provider Unavailabl e Encounter Details Date Type Department Care Team (Late st Contact Info) Description 10/17/[address] 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
--- OUTSIDE RECORDS SUMMARY | 2024-09-07 07:46 | XMS_ITS | Encounter Summary ---
Author Organization [facility] Address [address] [place] [address]. [place], [place] [address] [place] [address] Care Team Providers Care Supervisor Forming Department Name Role Phone Unavailable Primary Care Provider Unavailabl e Encounter Details Date Type Department Care Team (Late st Contact Info) Description 10/24/[address] 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
--- OUTSIDE RECORDS SUMMARY | 2024-09-07 07:46 | XMS_ITS | Clinical Summary ---
Author Organization [facility] Address [address] [place] [address]. 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
--- OUTSIDE RECORDS SUMMARY | 2024-09-07 07:49 | XMS_ITS | Encounter Summary ---
Author Organization [facility] Address [address] [facility] [address] [place] [address] Care Team Providers Care Life Assurance Representative Name Role Phone Angel HARPER MD, Jose G Hopson Primary Care Provider Reason for Visit * Reason Comments Hospital Follow Up Encounter Details Date Type Department Care Team (Latest Contact Info) Description 05/30/2017 3:45 PM CDT Office Visit [facility] [address] [facility] [address] [place] [address] Carlie Morales MD [address] [place] [address] Mitral valve prolapse (Primary Dx); [...] with myxomatous degeneration and moderate prolapse with cskh-zt-lihruwjz mitral regurgitation, EF 60%, mild aortic atherosclerosis [...] newly diagnosed with significant mitral valve prolapse bdpwvojg-qo-jzxepaoy mitral regurgitation. Currently asymptomatic with good LV [...] 06/10/2018 added in this encounter Care Teams Life Assurance Representative Relationship Specialty Start Date End Date Jose G Ortiz II, MD [address] [place] [address] PCP - General Family Medicine 05/30/17 documented as of this encounter
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
--- OUTSIDE RECORDS SUMMARY | 2024-09-07 07:49 | XMS_ITS | Encounter Summary ---
Author Organization [facility] Address [address] [facility] [address] [place] [address] Care Team Providers Care Kaiawhina Kura Kaupapa Maori Name Role Phone Angel HARPER MD, Jose G Hopson Primary Care Provider Reason for Visit * (Routine) - Closed Specialty Diagnoses / Procedures Referred By Contac t Referred To Contact Diagnoses Mitral valve prolapse Non-rheumatic mitral regurgitation Procedures Transthoracic Echo Complete W Doppler/CF Fany Hinojosa MD Phone: tel: fax: [facility] Referral ID Status Reason Start Date Expiration Date Visits Re quested Visits Authorized [id number] Closed 06/21/2020 07/21/2021 1 1 Encounter Details Date Type Department Care Team (Latest Contact Info) Description 06/22/2020 4:00 PM CDT Ancillary Procedure [facility] Cardiology [address] [place] [address] Mitral valve prolapse; Non-rheumatic mitral [...] AM CDT Narrative 06/22/2020 5:03 PM CDT [facility] Cardiology [address] [facility] [address], [place] [address] [address], [place] [address] P:[phone] P:[phone] Echocardiographic Report Patient Name: LENNY TOLLIVER : 1935 Study Date: 06/22/2020 11:55:18 AM Gender: M Tech: Location: [place] Ref.Provider: ANGEL Height(Cm): 170 BSA: 1.81 Weight(Kg): [...] Findings: Interpretation Site: Exam was interpreted at [facility]. Left Ventricle: Normal left ventricular systolic [...] Procedure Note Venancio Arreguin MD - 06/22/2020 [facility] Cardiology [address] [facility] [address] [address] [address] [facility] [address], [place] [address] P:[phone] P:[phone] Echocardiographic Report Patient Name: LENNY TOLLIVERPatient ID: [id number] : [id number] Date: 06/22/2020 11:55:18 AM Gender: MAccession #: [id number] Tech: GMLocation: [place] Ref.Provider: Brunaight(Cm): 170 BSA: 1.81Weight(Kg): 70.31 Heart [...] 16.00 - 28.00 ] cc/m2 MV Decel [id number] [ 150 - 200 ] msec ACS MM 2.32 cm PV Peak Vel0.84 [ 0.40 - 0.80 ] m/s TR Peak Vel2.75 [ 0.40 - 0.80 ] m/s TR Peak PG 30mmHg RVSP38.00 mmHg E'0.08 E/E' 9 Findings: Interpretation Site: Exam was interpreted at [facility]. Left Ventricle: Normal left ventricular systolic [...] regurgitation documented in this encounter Care Teams Kaiawhina Kura Kaupapa Maori Relationship Specialty Start Date End Date Jose G Ortiz II, MD [address] [place] [address] PCP - General Family Medicine 05/30/17 documented as of this encounter
--- OUTSIDE RECORDS SUMMARY | 2024-09-07 07:49 | XMS_ITS | Encounter Summary ---
Author Organization [facility] Care Team Providers Care Bread Racker Name Role Phone Angel HARPER MD, Jose [...] on filedocumented in this encounter Care Teams Bread Racker Relationship Specialty Start Date End Date Jose G Ortiz II, MD [address] [place] [address] PCP - General Family Medicine 05/30/17 documented as of this encounter
--- OUTSIDE RECORDS SUMMARY | 2024-09-07 07:49 | XMS_ITS | Encounter Summary ---
Author Organization [facility] Address [address] [place] [address] Care Team Providers Care Merchandising Director Name Role Phone Angel HARPER MD, Jose G Hopson Primary Care Provider Reason for Visit * Reason Onset Date Comments echo results 06/29/2020 Encounter Details Date Type Department Care Team (Late st Contact Info) Description 06/29/2020 Telephone [facility] Cardiology [address] [place] [address] Marilyn Marcial RN echo results Social [...] Marilyn Marcial RN - 06/29/2020 3:25 PM VIDEO PRODUCTION SPECIALIST I spoke w pt and give him his echo results pt verbalized understanding O PRODUCTION SPECIALIST * Telephone Encounter - Veronica Church - 06/29/2020 2:15 PM CST Pt called back to speak with Charity DEL VALLE. O PRODUCTION SPECIALIST * Telephone Encounter - Marilyn Marcial RN - 06/29/2020 12:06 PM VIDEO PRODUCTION SPECIALIST Called pt. Did not get a voicemail as the line kept ringing and ringing. I will try again but also send this in the mail for patient to review along with echo results. O PRODUCTION SPECIALIST * Telephone Encounter - Marilyn Marcial RN - 06/29/2020 12:04 PM VIDEO PRODUCTION SPECIALIST ----- Message from Carlie Morales MD sent at 06/24/2020 4:37 PM CDT ----- Patient with mitral valve prolapse and mitral regurgitation, please review echo results: Same as last year, mild to moderate leakage of the mitral valve. Continue same. 04/2019 EF 72%, LVH, DD, moderate to severe MVP, uiww-qt-fkdiybiq MR, mild TR aortic root 4.3 cm, ascending aorta 4.0 cm 05/2020 EF 65-70%, normal LV size, mild LVH, diastolic dysfunction, moderate to severe MVP, yujr-op-mffbuxjp MR, mild TR, mildly dilated aortic root 4.0 cm O PRODUCTION SPECIALIST documented in this encounter Plan of Treatment Not on file documented as of this encounter Visit Diagnoses Not on filedocumented in this encounter Care Teams Merchandising Director Relationship Specialty Start Date End Date Jose G Ortiz II, MD [address] [place] [address] PCP - General Family Medicine 05/30/17 documented as of this encounter
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
--- OUTSIDE RECORDS SUMMARY | 2024-09-07 07:49 | XMS_ITS | Encounter Summary ---
Author Organization [facility] Healthcare Address [address] [place] [address] Care Team Providers Care Braille Typist Name Role Phone Angel HARPER MD, Jose G Hopson Primary Care Provider Reason for Visit * Reason Comments Follow-up Former EU pt Mitral Valve Prolapse Encounter Details Date Type Department Care Team (Latest Contact Info) Description 08/15/2024 9:30 AM SECRETARIAL TEACHER Office Visit [facility] Medical Group Cardiology [address] [place] [address] Mattie Henderson MD [address] [address] Mitral valve prolapse (Primary Dx); [...] Comments Blood Pressure 94/60 08/15/2024 9:28 AM SECRETARIAL TEACHER Pulse 83 08/15/2024 9:28 AM SECRETARIAL TEACHER Temperature - - Respiratory Rate - - Oxygen Saturation 94% 08/15/2024 9:28 AM SECRETARIAL TEACHER Inhaled Oxygen Concentration - - Weight 65.2 kg (143 lb 12.8 oz) 08/15/2024 9:28 AM SECRETARIAL TEACHER Height 170.2 cm (5' 7 ) 08/15/2024 9:28 AM SECRETARIAL TEACHER Body Mass Index 22.52 08/15/2024 9:28 AM SECRETARIAL TEACHER documented in this encounter Progress Notes * [...] renal function okay. Mattie Henderson M.D., FAC ETARIAL TEACHER documented in this encounter Plan of Treatment [...] artery documented in this encounter Care Teams Braille Typist Relationship Specialty Start Date End Date Jose G Ortiz II, MD [address] [place] [address] PCP - General Family Medicine 05/30/17 documented as of this encounter
--- OUTSIDE RECORDS SUMMARY | 2024-09-07 07:49 | XMS_ITS | Encounter Summary ---
Author Organization [facility] Address [address] [facility] [address] [place] [address] Care Team Providers Care Pump Oiler Name Role Phone Angel HARPER MD, Jose G Hopson Primary Care Provider Reason for Referral * (Routine) - Closed Specialty Diagnoses / Procedures Referred By Contac t Referred To Contact Diagnoses Mitral valve prolapse Non-rheumatic mitral regurgitation Procedures Transthoracic Echo Complete W Doppler/CF Fany Hinojosa MD Phone: tel: fax: [facility] Referral ID Status Reason Start Date Expiration Date Visits Re quested Visits Authorized [id number] Closed 06/10/2018 12/20/2019 1 1 Reason for Visit * Reason Comments Follow-up No problem Encounter Details Date Type Department Care Team (Latest Contact Info) Description 06/10/2018 9:45 AM CDT Office Visit [facility] [address] [facility] [address] [address] Fany Hinojosa MD [address] [place] [address] Mitral valve prolapse (Primary Dx); Non-rheumatic mitral [...] with myxomatous degeneration and moderate prolapse with ytoq-iw-rqrcwinv mitral regurgitation, EF 60%, mild aortic atherosclerosis [...] Echos: 04/2017 kimberly: Myxomatous degeneration, moderate prolapse, frce-vz-ztjpyamf MR, mild TR, mild aortic atherosclerosis 05/2018 EF 60-65%, mild LVH, diastolic dysfunction, severe posterior leaflet prolapse, oodd-ih-gxyvbfeg MR, moderate TR, RVSP 41 mmHg, ascending aorta 4.5 cm 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 MEDICAL HISTORY Past Medical History: Diagnosis Date [...] significant mitral valve prolapse but fortunately only pbag-mp-khkpubll mitral regurgitation. He is asymptomatic with good [...] follow-up with Dr. Ortiz. Fany Hinojosa MD, [facility] Office: [phone] or [phone] This note is dictated and transcribed by with assistance from [employer].?? Supervisor [employer] variances may occur. Despite proofreading, typographical errors [...] Care Group [address], [place] [address] [address], [place] [address] P:[phone] P:[phone] Echocardiographic Report ADDENDUM Patient Name: LENNY TOLLIVER : 1935 Study Date: 05/26/2019 9:02:24 AM Gender: M Tech: Location: [place] Ref.Provider: ANGEL Height(Cm): 170 BSA: 1.78 Weight(Kg): [...] Findings: Interpretation Site: Exam was interpreted at [facility]. Left Ventricle: Normal left ventricular [...] - 05/26/2019 [facility] [address] [facility] [address], [place] [address] [address] [facility] [address], [place] [address] P:[phone] P:[phone] Echocardiographic Report ADDENDUM Patient Name: LENNY TOLLIVERPatient ID: [id number] : [id number] Date: 05/26/2019 9:02:24 AM Gender: MAccession #: [id number] Tech: GMLocation: [place] Ref.Provider: Brunaight(Cm): 170 BSA: 1.78Weight(Kg): 67.59 Heart [...] 0.60 - 0.90 ] cm MV Decel [id number] [ 150 - 200 ] msec IVSd [...] Findings: Interpretation Site: Exam was interpreted at [facility]. Left Ventricle: Normal left ventricular [...] daily added in this encounter Care Teams Pump Oiler Relationship Specialty Start Date End Date Jose G Ortiz II, MD [address] [place] [address] PCP - General Family Medicine 05/30/17 documented as of this encounter
--- OUTSIDE RECORDS SUMMARY | 2024-09-07 07:49 | XMS_ITS | Encounter Summary ---
Author Organization [facility] Care Team Providers Care Transportation Assistant Name Role Phone Angel HARPER MD, Jose [...] on filedocumented in this encounter Care Teams Transportation Assistant Relationship Specialty Start Date End Date Jose G Ortiz II, MD [address] [place] [address] PCP - General Family Medicine 05/30/17 documented as of this encounter
--- OUTSIDE RECORDS SUMMARY | 2024-09-07 07:49 | XMS_ITS | Encounter Summary ---
Author Organization [facility] Address [address] [facility] [address] [place] [address] Care Team Providers Care Panelboard Assembler Name Role Phone Angel HARPER MD, Jose G Hopson Primary Care Provider Reason for Visit * Cardiology (Routine) - Closed Specialty Diagnoses / Procedures Referred By Contac t Referred To Contact Diagnoses MVP (mitral valve prolapse) Procedures Transthoracic Echo Complete W Doppler/CF Fany Hinojosa MD Phone: tel: fax: Referral ID Status Reason Start Date Expiration Date Visits Re quested Visits Authorized [id number] Closed 05/30/2017 11/26/2017 1 1 Encounter Details Date Type Department Care Team (Latest Contact Info) Description 05/30/2018 8:15 AM CDT Ancillary Procedure [facility] Medical [facility] Cardiology [address] [place] [address] MVP (mitral valve prolapse) Social [...] PM CDT [facility] [address] [facility] [address], [place] [address] [address] [facility] [address], [place] [address] P:[phone] P:[phone] Echocardiographic Report Patient Name: LENNY TOLLIVER : 1935 Study Date: 05/30/2018 8:03:24 AM Gender: M Tech: GM ? Location: [place] ? Ref.Physician: JOSE G ORTIZ ?Height(Cm): 170 [...] Site: Exam was interpreted at [facility]. Left Ventricle: Normal left ventricular systolic [...] - 05/30/2018 [facility] [address] [facility] [address], [place] [address] [address] [facility] [address] [address] P:[phone] P:[phone] Echocardiographic Report Patient Name: LENNY TOLLIVERPatient ID: [id number] : [id number] Date: 05/30/2018 8:03:24 AM Gender: MAccession #: [id number] Tech: Location: [place] Ref.Physician: JOSE G ORTIZ Height(Cm): 170 BSA: [...] 0.60 - 0.90 ] cm MV Decel [id number] [ 150 - 200 ] msec IVSd [...] Site: Exam was interpreted at [facility]. Left Ventricle: Normal left ventricular systolic [...] disorders documented in this encounter Care Teams Panelboard Assembler Relationship Specialty Start Date End Date Jose G Ortiz II, MD [address] [place] [address] PCP - General Family Medicine 05/30/17 documented as of this encounter
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
--- OUTSIDE RECORDS SUMMARY | 2024-09-07 07:49 | XMS_ITS | Encounter Summary ---
Author Organization [facility] Healthcare Address [address] [place] [address] Care Team Providers Care Head Cook Name Role Phone Angel HARPER MD, Jose G Hopson Primary Care Provider Encounter Details Date Type Department Care Team (Late st Contact Info) Description 04/17/2024 Telephone [facility] Medical Group Cardiology [address] [place] [address] Mattie Henderson MD [address] [place] [address] Social History Tobacco Use Types Packs/Day [...] appt to 04/18/[address] Henderson at [phone]. Pt said he would call back documented in this encounter Plan of Treatment Not on file documented as of this encounter Visit Diagnoses Not on filedocumented in this encounter Care Teams Head Cook Relationship Specialty Start Date End Date Jose G Ortiz II, MD [address] [place] [address] PCP - General Family Medicine 05/30/17 documented as of this encounter
--- OUTSIDE RECORDS SUMMARY | 2024-09-07 07:49 | XMS_ITS | Encounter Summary ---
Author Organization [facility] Address [address] [facility] [address] [place] [address] Care Team Providers Care Scouring Pads Supervisor Name Role Phone Angel HARPER MD, Jose G Hopson Primary Care Provider Reason for Visit * Cardiology (Routine) - Closed Specialty Diagnoses / Procedures Referred By Contac t Referred To Contact Diagnoses Mitral valve prolapse Non-rheumatic mitral regurgitation Procedures Transthoracic Echo Complete W Doppler/CF Fany Hinojosa MD Phone: tel: fax: [facility] Referral ID Status Reason Start Date Expiration Date Visits Re quested Visits Authorized [id number] Closed 07/18/2021 08/17/2022 1 1 Encounter Details Date Type Department Care Team (Latest Contact Info) Description 08/22/2021 8:15 AM EDUCATIONAL DIAGNOSTICIAN Ancillary Procedure [facility] Medical [facility] Cardiology [address] [facility] [address] [place] [address] Mitral valve prolapse; Non-rheumatic mitral [...] DOPPLER/CF WO CONTRAST Routine 08/22/2021 9:07 AM EDUCATIONAL DIAGNOSTICIAN Mitral valve prolapse Non-rheumatic mitral regurgitation documented in this encounter Results * TRANSTHORACIC ECHO (TTE) COMPLETE W DOPPLER/CF WO CONTRAST (08/22/2021 9:07 AM EDUCATIONAL DIAGNOSTICIAN) Anatomical Region Laterality Modality Ultrasound 08/22/2021 8:13 AM EDUCATIONAL DIAGNOSTICIAN Narrative 08/22/2021 1:21 PM EDUCATIONAL DIAGNOSTICIAN [facility] Medical Group Cardiology [address] [facility] [address], [place] [address] [address], [place] [address] P:[phone] P:[phone] Echocardiographic Report Patient Name: LENNY TOLLIVER : 1935 Study Date: 08/22/2021 8:13:09 AM Gender: M Tech: Location: [place] Ref.Provider: FANY HINOJOSA Height(Cm): 170 BSA: 1.76 [...] Findings: Interpretation Site: Exam was interpreted at [facility]. Left Ventricle: Normal left ventricular systolic [...] By: Mark Anthony Ambrose MD 2021-08-22 13:21:20 EDUCATIONAL DIAGNOSTICIAN Procedure Note Pablo Ambrose MD - 08/22/2021 [facility] Medical Group Cardiology [address], [place] [address] [address], [place] [address] P:[phone] P:[phone] Echocardiographic Report Patient Name: LENNY TOLLIVERPatient ID: [id number] : [id number] Date: 08/22/2021 8:13:09 AM Gender: MAccession #: [id number] Tech: GMLocation: [place] Ref.Provider: FANY HINOJOSAHeight(Cm): 170 BSA: 1.76Weight(Kg): 65.32 [...] 16.00 - 28.00 ] cc/m2 MV Decel [id number] [ 150 - 200 ] msec ACS MM 2.40 cm PV Peak Vel0.87 [ 0.40 - 0.80 ] m/s TR Peak Vel3.21 [ 0.40 - 0.80 ] m/s TR Peak PG 41mmHg RVSP49.00 mmHg E'0.07 E/E' 8 Findings: Interpretation Site: Exam was interpreted at [facility]. Left Ventricle: Normal left ventricular systolic [...] By: Mark Anthony Ambrose MD 2021-08-22 13:21:20 EDUCATIONAL DIAGNOSTICIAN us Fany Hinojosa MD CV ECHO PROCEDURES Final Re sult documented in this encounter Visit Diagnoses Diagnosis Mitral valve prolapse Mitral valve disorders Non-rheumatic mitral regurgitation documented in this encounter Care Teams Scouring Pads Supervisor Relationship Specialty Start Date End Date Jose G Ortiz II, MD [address] [place] [address] PCP - General Family Medicine 05/30/17 documented as of this encounter
--- OUTSIDE RECORDS SUMMARY | 2024-09-07 07:49 | XMS_ITS | Referral Summary ---
Author Organization [facility] [address] [facility] 162 Address [address] [place] [address] Care Team Providers Care Banquet Coordinator Name Role Phone Angel HAREPR MD, Jose G Hopson Primary Care Provider Encounters Date Type Department Care Team Description 08/15/2024 9:30 AM PLOW HOLDER Office Visit [facility] Cardiology [address] [facility] [address] [place] [address] Mattie Henderson MD Mitral valve [...] Comments Blood Pressure 94/60 08/15/2024 9:28 AM PLOW HOLDER Pulse 83 08/15/2024 9:28 AM PLOW HOLDER Temperature 36.6 ??C (97.8 ??F) 06/22/2020 1 1:57 AM CDT Respiratory Rate 16 05/30/2017 3:47 PM CDT Oxygen Saturation 94% 08/15/2024 9:28 AM PLOW HOLDER Inhaled Oxygen Concentration - - Weight 65.2 kg (143 lb 12.8 oz) 08/15/2024 9:28 AM PLOW HOLDER Height 170.2 cm (5' 7 ) 08/15/2024 9:28 AM PLOW HOLDER Body Mass Index 22.52 08/15/2024 9:28 AM PLOW HOLDER Plan of Treatment Not on file Insurance MEDICARE MEDICARE [facility] MEDICARE SUPPLEMENT Care Teams Banquet Coordinator Relationship Specialty Start Date End Date Jose G Ortiz II, MD [address] [place] [address] PCP - General Family Medicine 05/30/17
--- OUTSIDE RECORDS SUMMARY | 2024-09-07 07:49 | XMS_ITS | Encounter Summary ---
Author Organization [facility] Address [address] [facility] [address] [place] [address] Care Team Providers Care Certified Nurse Practitioner Name Role Phone Angel HARPER MD, Jose G Hopson Primary Care Provider Reason for Referral * Diagnostic Imaging (Routine) - Closed Specialty Diagnoses / Procedures Referred By Contac t Referred To Contact Radiology Procedures CT Chest W Contrast [facility] [address] [facility] [address] [place] [address] Phone: tel: fax: Referral ID Status Reason Start Date Expiration Date Visits Re quested Visits Authorized [id number] Closed 06/26/2019 01/04/2021 1 1 Encounter Details Date Type Department Care Team (Late st Contact Info) Description 06/26/2019 Orders Only [facility] [address] [place] [address] [address] [place] [address] Jh Loaiza MD [address] [place] [address] Social History Tobacco Use Types Packs/Day [...] on filedocumented in this encounter Care Teams Certified Nurse Practitioner Relationship Specialty Start Date End Date Jose G Ortiz II, MD [address] [place] [address] PCP - General Family Medicine 05/30/17 documented as of this encounter
--- OUTSIDE RECORDS SUMMARY | 2024-09-07 07:49 | XMS_ITS | Encounter Summary ---
Author Organization [facility] Address [address] [facility] [address] [place] [address] Care Team Providers Care Ring Stamper Name Role Phone Angel HARPER MD, Jose G Hopson Primary Care Provider Encounter Details Date Type Department Care Team (Late st Contact Info) Description 06/03/2018 Telephone [facility] [address] [facility] [address] [place] [address] Carlie Morales MD [address] [address] Social History Tobacco Use Types [...] on filedocumented in this encounter Care Teams Ring Stamper Relationship Specialty Start Date End Date Jose G Ortiz II, MD [address] [place] [address] PCP - General Family Medicine 05/30/17 documented as of this encounter
--- OUTSIDE RECORDS SUMMARY | 2024-09-07 07:49 | XMS_ITS | Encounter Summary ---
Author Organization [facility] Medical Group Address [address] [place] [address] Care Team Providers Care Community Health Consultant Name Role Phone Angel HARPER MD, Jose G Hopson Primary Care Provider Reason for Visit * Reason Onset Date Comments Abnormal Echo 06/25/2020 Encounter Details Date Type Department Care Team (Late st Contact Info) Description 06/25/2020 Telephone [facility] Medical [facility] Cardiology [address] [place] [address] Marilyn Marcial RN Abnormal Echo Social [...] the original note were not included. Carlie Morales MD P [facility] Card Mryvl Clinical Pool ?? Patient with mitral valve prolapse and mitral regurgitation, please review echo results: ??Same as last year, mild to moderate leakage of the mitral valve. ??Continue same. 04/2019 EF 72%, LVH, DD, moderate to severe MVP, spnk-oh-nkdlimau MR, mild TR aortic root 4.3 cm, ascending aorta 4.0 cm 05/2020 EF 65-70%, normal LV size, mild LVH, diastolic dysfunction, moderate to severe MVP, zdcv-az-mnbglkkp MR, mild TR, mildly dilated aortic root 4.0 cm Called this patient and could not reach him on either phone listed. Will try again later. documented in this encounter Plan of Treatment Not on file documented as of this encounter Visit Diagnoses Not on filedocumented in this encounter Care Teams Community Health Consultant Relationship Specialty Start Date End Date Jose G Ortiz II, MD [address] [place] [address] PCP - General Family Medicine 05/30/17 documented as of this encounter
--- OUTSIDE RECORDS SUMMARY | 2024-09-07 07:49 | XMS_ITS | Encounter Summary ---
Author Organization [facility] Address [address] [facility] [address] [place] [address] Care Team Providers Care Crozer Name Role Phone Angel HARPER MD, Jose G Hopson Primary Care Provider Encounter Details Date Type Department Care Team (Late st Contact Info) Description 06/30/2019 Telephone [facility] [address] [facility] [address] [facility] [address] [place] [address] Carlie [place]ales MD [address] [facility] [address] [place] [address] Social History Tobacco Use Types [...] 4:29 PM CST Reviewed previous note from [facility] CTA results with son in detail. ICE LEARNING COORDINATOR * Telephone Encounter - Veronica Church - 06/30/2019 3:49 PM CST Pt's son called to request results on pt's CTA chest/abd. cb [phone] ICE LEARNING COORDINATOR documented in this encounter Plan of Treatment Not on file documented as of this encounter Visit Diagnoses Not on filedocumented in this encounter Care Teams Crozer Relationship Specialty Start Date End Date Jose G Ortiz II, MD [address] [place] [address] PCP - General Family Medicine 05/30/17 documented as of this encounter
--- OUTSIDE RECORDS SUMMARY | 2024-09-07 07:49 | XMS_ITS | Encounter Summary ---
Author Organization [facility] Address [address] [place] [address] Care Team Providers Care Forestry Adviser Name Role Phone Angel HARPER MD, Jose G Hopson Primary Care Provider Reason for Visit * (Routine) - Closed Specialty Diagnoses / Procedures Referred By Contac t Referred To Contact Diagnoses Mitral valve prolapse Non-rheumatic mitral regurgitation Procedures Transthoracic Echo Complete W Doppler/CF Fany Hinojosa MD Phone: tel: fax: [facility] Referral ID Status Reason Start Date Expiration Date Visits Re quested Visits Authorized [id number] Closed 06/10/2018 12/20/2019 1 1 Encounter Details Date Type Department Care Team (Latest Contact Info) Description 05/26/2019 9:15 AM CDT Ancillary Procedure [facility] Medical [facility] Cardiology [address] [place] [address] Mitral valve prolapse; Non-rheumatic mitral [...] PM CDT [facility] [address] [facility] [address], [place] [address] [address], [place] [address] P:[phone] P:[phone] Echocardiographic Report ADDENDUM Patient Name: LENNY TOLLIVER : 1935 Study Date: 05/26/2019 9:02:24 AM Gender: M Tech: Location: ID Ref.Provider: ANGEL Height(Cm): 170 BSA: 1.78 Weight(Kg): [...] Findings: Interpretation Site: Exam was interpreted at [facility]. Left Ventricle: Normal left ventricular systolic function. [...] Care Group [address], [place] [address] [address] [facility] [address], [place] [address] P:[phone] P:[phone] Echocardiographic Report ADDENDUM Patient Name: LENNY TOLLIVERPatient ID: [id number] : [id number] Date: 05/26/2019 9:02:24 AM Gender: MAccession #: [id number] Tech: GMLocation: ID Ref.Provider: Brunaight(Cm): 170 BSA: 1.78Weight(Kg): 67.59 Heart [...] 0.60 - 0.90 ] cm MV Decel [id number] [ 150 - 200 ] msec IVSd [...] Findings: Interpretation Site: Exam was interpreted at [facility]. Left Ventricle: Normal left ventricular systolic function. [...] regurgitation documented in this encounter Care Teams Forestry Adviser Relationship Specialty Start Date End Date Jose G Ortiz II, MD [address] [place] [address] PCP - General Family Medicine 05/30/17 documented as of this encounter
--- OUTSIDE RECORDS SUMMARY | 2024-09-07 07:49 | XMS_ITS | Encounter Summary ---
Author Organization [facility] Address [address] [place] [address] Care Team Providers Care Hot Plate Press Operator Name Role Phone Angel HARPER MD, [...] Doppler/CF Fany Hinojosa MD Phone: tel: fax: [facility] Referral ID Status Reason Start Date Expiration Date Visits Re quested Visits Authorized [id number] Closed 07/31/2022 08/30/2023 1 1 Encounter Details Date Type Department Care Team (Latest Contact Info) Description 09/06/2022 8:15 AM SUBWAREHOUSE SUPERVISOR Ancillary Procedure [facility] Medical [facility] Cardiology [address] [place] [address] Non-rheumatic mitral regurgitation; Aneurysm of [...] DOPPLER/CF WO CONTRAST Routine 09/06/2022 8:55 AM SUBWAREHOUSE SUPERVISOR 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 Mitral valve prolapse Aortic root enlargement (CMS/HCC) (HCC) documented in this encounter Results * TRANSTHORACIC ECHO (TTE) COMPLETE W DOPPLER/CF WO CONTRAST (09/06/2022 8:55 AM SUBWAREHOUSE SUPERVISOR) Anatomical Region Laterality Modality Ultrasound 09/06/2022 8:04 AM SUBWAREHOUSE SUPERVISOR Narrative 09/06/2022 6:18 PM SUBWAREHOUSE SUPERVISOR [facility] Cardiology [address] [facility] [address] [facility], [place] [address] [address] [facility] [address], [place] [address] P:[phone] P:[phone] Echocardiographic Report Patient Name: LENNY TOLLIVER : [id number] Study Date: 09/06/2022 8:04:12 AM Gender: M Tech: Location: [place] Ref.Provider: FANY HINOJOSA Height(Cm): 170 BSA: 1.7 [...] Findings: Interpretation Site: Exam was interpreted at [facility]. Left Ventricle: Normal left ventricular systolic function. [...] By: Mark Anthony Ambrose MD 2022-09-06 18:17:59 SUBWAREHOUSE SUPERVISOR CC: CC: Procedure Note Pablo Ambrose MD - 09/06/2022 [facility] Cardiology [address] [facility] [address] [address] [address] [facility] [address], [place] [address] P:[phone] P:[phone] Echocardiographic Report Patient Name: LENNY TOLLIVERPatient ID: [id number] : [id number] Date: 09/06/2022 8:04:12 AM Gender: MAccession #: [id number] Tech: GMLocation: [place] Ref.Provider: FANY HINOJOSAHeight(Cm): 170 BSA: 1.7Weight(Kg): 60.33 [...] 16.00 - 28.00 ] cc/m2 MV Decel [id number] [ 150 - 200 ] msec ACS MM 2.02 cm PV Peak Vel1.05 [ 0.40 - 0.80 ] m/s TR Peak Vel2.75 [ 0.40 - 0.80 ] m/s TR Peak PG 30mmHg RVSP38.00 mmHg E'0.08 E/E' 7 - Findings: Interpretation Site: Exam was interpreted at [facility]. Left Ventricle: Normal left ventricular systolic function. [...] By: Mark Anthony Ambrose MD 2022-09-06 18:17:59 SUBWAREHOUSE SUPERVISOR CC: CC: us Fany Hinojosa MD CV ECHO PROCEDURES Final Re sult documented in this encounter Visit Diagnoses Diagnosis 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 (HCC) Mitral valve prolapse Mitral valve disorders Aortic root enlargement (CMS/HCC) (HCC) documented in this encounter Care Teams Hot Plate Press Operator Relationship Specialty Start Date End Date Jose G Ortiz II, MD [address] [place] [address] PCP - General Family Medicine 05/30/17 documented as of this encounter
--- OUTSIDE RECORDS SUMMARY | 2024-09-07 07:49 | XMS_ITS | Encounter Summary ---
Author Organization [facility] Address [address] [place] [address] Care Team Providers Care It Specialist Name Role Phone Angel HARPER MD, Jose G Hopson Primary Care Provider Encounter Details Date Type Department Care Team (Late st Contact Info) Description 06/23/2019 Orders Only [facility] [address] [address] [address] [place] [address] ProviderJh MD [address] [place] [address] Social History Tobacco Use Types Packs/Day [...] on filedocumented in this encounter Care Teams It Specialist Relationship Specialty Start Date End Date Jose G Ortiz II, MD [address] [place] [address] PCP - General Family Medicine 05/30/17 documented as of this encounter
--- OUTSIDE RECORDS SUMMARY | 2024-09-07 07:49 | XMS_ITS | Clinical Summary ---
Author Organization [facility] [address] Address [address] [place] [address] Care Team Providers Care Spouter Name Role Phone Angel HARPER MD, Jose [...] Department Care Team Description 08/15/2024 9:30 AM EMPLOYEE RELATIONS REPRESENTATIVE Office Visit [facility] Cardiology [address] [place] [address] Mattie Henderson MD Mitral valve [...] Comments Blood Pressure 94/60 08/15/2024 9:28 AM EMPLOYEE RELATIONS REPRESENTATIVE Pulse 83 08/15/2024 9:28 AM EMPLOYEE RELATIONS REPRESENTATIVE Temperature 36.6 ??C (97.8 ??F) 06/22/2020 1 1:57 AM CDT Respiratory Rate 16 05/30/2017 3:47 PM CDT Oxygen Saturation 94% 08/15/2024 9:28 AM EMPLOYEE RELATIONS REPRESENTATIVE Inhaled Oxygen Concentration - - Weight 65.2 kg (143 lb 12.8 oz) 08/15/2024 9:28 AM EMPLOYEE RELATIONS REPRESENTATIVE Height 170.2 cm (5' 7 ) 08/15/2024 9:28 AM EMPLOYEE RELATIONS REPRESENTATIVE Body Mass Index 22.52 08/15/2024 9:28 AM EMPLOYEE RELATIONS REPRESENTATIVE Plan of Treatment Health Maintenance Due Date [...] Vaccine (#1) 2024 08/09/2020 Insurance MEDICARE MEDICARE [facility] MEDICARE SUPPLEMENT Care Teams Spouter Relationship Specialty Start Date End Date Jose G Ortiz II, MD [address] [place] [address] PCP - General Family Medicine 05/30/17
--- OUTSIDE RECORDS SUMMARY | 2024-09-07 07:49 | XMS_ITS | Encounter Summary ---
Author Organization [facility] Address [address] [place] [address] Care Team Providers Care County Extension Agent Name Role Phone Angel HARPER MD, Jose G Hopson Primary Care Provider Encounter Details Date Type Department Care Team (Late st Contact Info) Description 05/30/2018 Telephone [facility] [address] [facility] [address] [place] [address] Carlie Morales MD [address] [address] Social History Tobacco Use Types [...] 4:13 PM CDT Pt returned call. cb [phone] * Telephone Encounter - Paris Pulido, RN - 05/30/2018 4:08 PM CDT LMTC * Telephone Encounter - Marce Flower - 05/30/2018 4:01 PM CDT Pt will like a call back regarding echo result pt call back [phone] documented in this encounter Plan of Treatment Not on file documented as of this encounter Visit Diagnoses Not on filedocumented in this encounter Care Teams County Extension Agent Relationship Specialty Start Date End Date Jose G Ortiz II, MD [address] [place] [address] PCP - General Family Medicine 05/30/17 documented as of this encounter
--- OUTSIDE RECORDS SUMMARY | 2024-09-07 07:49 | XMS_ITS | Encounter Summary ---
Author Organization [facility] Address [address] [place] [address] Care Team Providers Care Copy Center Associate Name Role Phone Angel HARPER MD, Jose G Hopson Primary Care Provider Reason for Visit * Reason Onset Date Comments CT aorta results 06/28/2019 Encounter Details Date Type Department Care Team (Late st Contact Info) Description 06/28/2019 Telephone [facility] [address] [place] [address] Carlie Morales MD [address] [facility] [address] [place] [address] CT aorta results Social History [...] on: 06/30/2019 09:44 AM Modules accepted: Orders CHUTE PACKER * Telephone Encounter - Katy Haas RN [...] which treats thatas well. Pt verbalized understanding. CHUTE PACKER * Telephone Encounter - Carlie Morales MD [...] on filedocumented in this encounter Care Teams Copy Center Associate Relationship Specialty Start Date End Date Jose G Ortiz II, MD [address] [place] [address] PCP - General Family Medicine 05/30/17 documented as of this encounter
--- OUTSIDE RECORDS SUMMARY | 2024-09-07 07:49 | XMS_ITS | Encounter Summary ---
Author Organization [facility] Address [address] [facility] [address] [facility] [address] [place] [address] Care Team Providers Care Community Support Specialist Name Role Phone Angel HARPER MD, Jose G Hopson Primary Care Provider Encounter Details Date Type Department Care Team (Late st Contact Info) Description 06/04/2017 Orders Only [facility] Cardiology [address] [place] [facility] [address] [place] [address] ProviderJh MD [address] [place] [address] Social History Tobacco Use Types Packs/Day [...] filedocumented in this encounter Care Teams Community Support Specialist Relationship Specialty Start Date End Date Jose G Ortiz II, MD [address] [place] [address] PCP - General Family Medicine 05/30/17 documented as of this encounter
--- OUTSIDE RECORDS SUMMARY | 2024-09-07 07:49 | XMS_ITS | Encounter Summary ---
Author Organization [facility] Address [address] [place] [address] Care Team Providers Care Digital Forensic Examiner Name Role Phone Angel HARPER MD, Jose G Hopson Primary Care Provider Encounter Details Date Type Department Care Team (Late st Contact Info) Description 05/30/2019 Telephone [facility] [address] [facility] [address] [facility] [address] [place] [address] Carlie Morales MD [address] [facility] [address] [place] [address] Social History Tobacco Use Types [...] results of his TTE exam on . [phone] * Telephone Encounter - Paris Pulido RN - 05/30/2019 10:28 AM CDT Found Creatinine of 1.2 in Norm system from 12/16/18. GFR 58. Will scan into chart. * Telephone Encounter - Paris Pulido RN - 05/30/2019 10:[address] 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 ??Please obtain a CTA of the aorta/ (CT of the chest and abdomen with contrast) to evaluate the aorta further. ??Creatinine was 1.1 in 2017; do we have a more recent creatinine? 05/2018 EF 60-65%, mild LVH, diastolic dysfunction, severe posterior leaflet prolapse, dqln-[id number] MR, moderate TR, RVSP 41 mmHg, ascending aorta 4.5 cm 04/2019 EF 72%, LVH, DD, moderate to severe MVP, wcvf-kt-yzrmqefk MR, mild TR aortic root 4.3 cm, [...] on filedocumented in this encounter Care Teams Digital Forensic Examiner Relationship Specialty Start Date End Date Jose G Ortiz II, MD [address] [place] [address] PCP - General Family Medicine 05/30/17 documented as of this encounter
--- OUTSIDE RECORDS SUMMARY | 2024-09-07 07:49 | XMS_ITS | Encounter Summary ---
Author Organization [facility] Address [address] [facility] [address] [place] [address] Care Team Providers Care Sales Operations Coordinator Name Role Phone Angel HARPER MD, Jose G Hopson Primary Care Provider Encounter Details Date Type Department Care Team ([facility] st Contact Info) Description 05/30/2019 Orders Only [facility] [address] [address] [address] [place] [address] ProviderJh MD [address] [place] [address] Social History Tobacco Use Types Packs/Day [...] on filedocumented in this encounter Care Teams Sales Operations Coordinator Relationship Specialty Start Date End Date Jose G Ortiz II, MD [address] [place] [address] PCP - General Family Medicine 05/30/17 documented as of this encounter
== END 2024-08-31 18:41 | disposition home or self-care (01) ==
PROVIDERS: Emergency Provider Student in an Organized Health Care Education/Training Program
DX: J06.9 Acute upper respiratory infection, unspecified (principal); B97.4 Respiratory syncytial virus as the cause of diseases classified elsewhere; N17.9 Acute kidney failure, unspecified; N18.9 Chronic kidney disease, unspecified; I12.9 Hypertensive chronic kidney disease with stage 1 through stage 4 chronic kidney disease, or unspecified chronic kidney disease; M06.9 Rheumatoid arthritis, unspecified; Z86.73 Personal history of transient ischemic attack (TIA), and cerebral infarction without residual deficits; Z20.822 Contact with and (suspected) exposure to COVID-19
CPT/HCPCS: 36415; 71046; 80053; 83735; 85025; 87637; 93005; 96360; 99284; J7120

== ENCOUNTER 2024-12-29 11:38 | Outpatient (CLI) | payer MEDICARE, SELFPAY ==
[2024-12-29 12:10] LABS: Hematocrit 36.9 % (42.0-52.0); Hemoglobin 11.8 g/dL (14.0-18.0); Mean Corpuscular Hemoglobin 30.9 pg (26-34); Mean Corpuscular Volume 96.6 fl (80-100); Platelet Count Result 169 k/mm3 (150-375); Red Blood Count 3.82 M/mm3 (4.6-6.20); White Blood Count 6.5 K/mm3 (4.5-10.0)
[2024-12-29 12:25] LABS: Alanine Aminotransferase 13 U/L (6-50); Albumin Level 3.9 g/dL (3.5-5.1); Alkaline Phosphatase 66 U/L (38-126); Anion Gap 5 mmol/L (4-12); Aspartate Amino Transferase 20 U/L (17-59); Bilirubin,Total 0.6 mg/dL (0.2-1.3); Blood Urea Nitrogen 24 mg/dL (9-20); Carbon Dioxide 30 mmol/L (22-30); Chloride 102 mmol/L (98-107); Cholesterol 123 mg/dL (0-200); Estimated Glomerular Filt Rate 48; Glucose 93 mg/dL (65-110); HDL Direct 45 mg/dL; Potassium 4.4 mmol/L (3.4-5.0); Sodium 137 mmol/L (137-145); Triglycerides 98 mg/dL (<150)
--- OUTSIDE RECORDS SUMMARY | 2024-12-29 12:27 | XMS_ITS | Referral Summary ---
Author Organization [facility] [address] Address [address] [place] [address] Care Team Providers Care Research Test Engine Evaluator Name Role Phone Angel HARPER MD, Jose [...] Non-rheumatic mitral regurgitation 06/10/2018 Aortic root enlargement 06/10/2018 Mitral valve prolapse 05/30/2017 Essential hypertension [...] Comments Blood Pressure 94/60 08/15/2024 9:28 AM BRONZE CHASER Pulse 83 08/15/2024 9:28 AM BRONZE CHASER Temperature 36.6 C (97.8 F) 06/22/2020 11:57 AM CDT Respiratory Rate 16 05/30/2017 3:47 PM CDT Oxygen Saturation 94% 08/15/2024 9:28 AM BRONZE CHASER Inhaled Oxygen Concentration - - Weight 65.2 kg (143 lb 12.8 oz) 08/15/2024 9:28 AM BRONZE CHASER Height 170.2 cm (5' 7 ) 08/15/2024 9:28 AM BRONZE CHASER Body Mass Index 22.52 08/15/2024 9:28 AM BRONZE CHASER Plan of Treatment Not on file Insurance MEDICARE MEDICARE [employer] MEDICARE SUPPLEMENT Care Teams Research Test Engine Evaluator Relationship Specialty Start Date End Date Jose G Ortiz II, MD [address] [place] [address] PCP - General Family Medicine 05/30/17
--- OUTSIDE RECORDS SUMMARY | 2024-12-29 12:27 | XMS_ITS | Clinical Summary ---
Author Organization [facility] [address] Address [address] [place] [address] Care Team Providers Care Desulfurizer Hand Name Role Phone Angel HARPER MD, Jose [...] and stenosis of carotid artery 05/30/2017 06/10/2018 Surgical History Surgery Date Site/Laterality Comments APPENDECTOMY Medical History Medical History Date Comments Hypertension Hyperlipidemia Appendicitis Stroke (HCC) Cataracts, bilateral Anxiety Carotid artery disease 2007 Left esquivel tid occl Valvular disease Mitral valve prolapse 2016 MVP w/ mil d to mod MR [...] Comments Blood Pressure 94/60 08/15/2024 9:28 AM SUPERVISOR SEWER SYSTEM Pulse 83 08/15/2024 9:28 AM SUPERVISOR SEWER SYSTEM Temperature 36.6 C (97.8 F) 06/22/2020 11:57 AM CDT Respiratory Rate 16 05/30/2017 3:47 PM CDT Oxygen Saturation 94% 08/15/2024 9:28 AM SUPERVISOR SEWER SYSTEM Inhaled Oxygen Concentration - - Weight 65.2 kg (143 lb 12.8 oz) 08/15/2024 9:28 AM SUPERVISOR SEWER SYSTEM Height 170.2 cm (5' 7 ) 08/15/2024 9:28 AM SUPERVISOR SEWER SYSTEM Body Mass Index 22.52 08/15/2024 9:28 AM SUPERVISOR SEWER SYSTEM Plan of Treatment Health Maintenance Due Date Last Done Comments Depression Screening 1935 Fall Risk Assessment 1935 DTaP/Tdap/Td Vaccine (1 - Tdap) 02/08/1947 Hepatitis B Screening 02/08/1954 Pneumococcal vaccine 65+ (1 of 2 - PCV) 02/08/1955 Well Visit 65+ 02/08/2001 Zoster Vaccine (2 of 2) 10/04/2020 08/09/2020 Covid-19 Vaccine (3 - Pfizer risk series) 11/24/2020 10/27/2020, 09/29/2020 Influenza Vaccine (#1) 2024 08/09/2020 Insurance MEDICARE MEDICARE [facility] MEDICARE SUPPLEMENT Member Subscriber Plan / Payer (Ef fective 2001-Present) Name:Tanner Tolliver Relation to Subscriber:Self Name:Tanner Tolliver Payer ID:[id number] Type:COMMERCIAL Address: [address] [place] [id number] Care Teams Desulfurizer Hand Relationship Specialty Start Date End Date Jose G Ortiz II, MD [address] [place] [address] PCP - General Family Medicine 05/30/17
--- OUTSIDE RECORDS SUMMARY | 2024-12-29 12:27 | XMS_ITS | Clinical Summary ---
Author Organization [facility] Address [address] [place] [address] Care Team Providers Care Home Lighting Adviser Name Role Phone Unavailable Primary Care Provider Unavailabl e Social History Tobacco Use Types Packs/Day Years Used Date Smoking Tobacco: Never Assessed Sex and Gender Information Value Date Recorded Sex Assigned at Not on file Legal Sex Male 9:33 PM DIRECTOR OF CORPORATE MARKETING Gender Identity Not on file Sexual Orientation Not on file Plan of Treatment Health Maintenance Due Date Last Done Comments DTaP, Tdap and Td Vaccines ( 1 - Tdap) 02/08/1955 Pneumococcal Vaccine: 50+ Ye ars (1 of 1 - PCV) 02/08/1986 Zoster Vaccines (1 of 2) 02/08/1986 RSV Immunization or 60+ Years (1 - 1-dose 75+ series) 02/08/2011 COVID-19 Vaccine ( - 2023-2 5 season) 2024 Meningococcal B Vaccine Aged Out No l onger eligible based on patient's age to complete this topic Meningococcal Vaccine Aged Out No herminia zakia eligible based on patient's age to complete this topic RSV Immunizations Under 20 Months Aged Out No longer eligible based on patient's age to complete this topic
--- OUTSIDE RECORDS SUMMARY | 2024-12-29 12:27 | XMS_ITS | Data Portability ---
Author Organization [facility], [address] Neurology ([place]) Address [address]th [place] [address] Care Team Providers Care Furniture Removalist'S Assistant Name Role Phone KRISTIN CEDENO Primary Care Provider LUISITO CEDENO Referring Provider [phone] Assessment Encounter Date Assessment Date Assessment LastModified by Organization Details LastModified Time 02/07/2024 02/07/2024 IMPRESSION: 1. Seropositive RA currently well controlled. 2. Osteoarthritis. 3. Chronic [...] 024 [facility], [address] [place] [address], [id number], 04/02/2024 15:43:30 CMP, serum or plasma 2023 024 [facility], [address] [place] [address], [id number], 04/02/2024 12:15:10 ESR (erythroc yte sedimenta tion rate), blood 2023 024 [email or web address], [address] [place] [address], [id number], 05/21/2024 14:22:09 unlisted lab - CRP ([facility] only) 2023 024 [email or web address] [facility], [address] [place] [address], [id number], 05/21/2024 14:22:09 Referral None recorded. Procedures None [...] Organization Details Recorded Time Seropositive rheumatoid arthritis 045716560 Active [address] [facility] 4 09:30:43 Osteoarthritis 120087131 Active 2023 [facility] 4 12:45:01 Chronic kidney disease stage [address] 158836249 Active [address] [facility] 4 12:45:08 Problem Notes None recorded. [...] Name and Address Organization Details Recorded Time 673900 Substance with sulfonami de structure and antibacte rial mechanism of action (substanc e) medicatio n hives Not available Not available 09/24/20232021 65076 8003 SNOMED React ion: Hives ; Not Available [facility] 22:00:58 566395 cephalexi n medicatio n other Not available Not available 09/24/20232021 2231 RxNorm React ion: Unkno wn to Patie nt; Not Available [facility] 22:01:25 134227 Product containin g penicilli n (product) medicatio n other Not available Not available 09/24/20232021 17797 8001 SNOMED React ion: Unkno wn to Patie nt; Not Available [facility] 22:01:25 Medications Name Sig Start Date Stop Date [...] ONCE WEEKLY, TAKE 4 TABLETS BY MOUTH 2024 active Not Available Not Available Not Avai lable tamsulosin 0.4 mg capsule TAKE (1) CAPSULE [...] saturation in Arterial blood by Pulse oximetry Pain severity - 0-10 verbal numeric rating [Score] - Reported Systolic blood pressure Diastolic blood pressure Provider Name and Address Organization Details Last Updated DateTime 4 167.64 cm 22.3 kg/m2 75161.7 5 g 51 /min 97 % 97 % 0 120 mm[Hg] 70 mm[Hg] Katie Cheema [facility] 4 08:58:15 Date Recorded Body height Heart rate Oxygen saturation Oxygen saturation in Arterial blood by Pulse oximetry Systolic blood pressure Diastolic blood pressure Provider Name and Address Organization Details Last Updated DateTime 4 167.64 cm 61 /min 97 % 97 % 130 mm[Hg] 84 mm[Hg] Melquiades Alstonw [facility] 4 09:08:43 Social History Question Answer Notes [...] Do You Have A Medical Power Of Funeral Workers? Yes [email or web address] Information not available 02/05/2024 What [...] 12:45:17 Mother No current problems or disability [email or web address] Not available 01/30 12:45:17 Unspecified Relation Hypercholest erolemia [email or web address] Not available 2023 22:02:39 Unspecified Relation Disorder of thyroid gland [email or web address] Not available 2023 22:02:39 Notes:Brother has pulmonary fibrosis Medical History Condition Response Diabetes N Anxiety Disorder N Bleeding Disorder N Attention-deficit Hyperactivity Disorder N High Blood Pressure Y Arthritis Y Hyperlipidemia Y Cancer N Stroke Y Thyroid Problems N Asthma N Depression N COPD N Anemia N Seizures N Heart Disease N Fibromyalgia N Osteoporosis N Kidney Disease N Past Encounters Encounter ID Performer Location Encounter Start Date Encounter Closed Date Diagnosis/Indication Diagnosis SNOMED-CT Code Diagnosis ICD10 Code Diagnosis Note [id number] Darvin Santos MD [facility] [address] [place] [facility] [place] [address] 02/07/2024 08:49:30 02/08/2024 21:12:41 Seropositive rheumatoid arthritis 200708167 M05.9 Osteoarthritis 322689137 M19.90 Chronic ki dney disease stage 3 450220783 N18.30 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 8134772599 0619927 M05.89 long term care phlebotomist methotrexate user 1206906474 00 Z79.631 [id number] Darvin Santos MD [facility]) [address] [place] [address] 08/07/2024 09:07:55 08/10/2024 04:58:03 Seropositive rheumatoid arthritis 206660835 M05.9 Osteoarthritis 644617433 M19.90 Chronic ki dney disease stage 3 853058199 N18.30 Health Concerns Section Related Observation LastModified by Organization Detai ls LastModified Time None Recorded Concern Status LastModified by Organization Details LastModified Time None Recorded Advance Directives Directive Y: Payers Encounter Date Sequence Insurance Name Policy Number Policy Mireles Covered Member ID Mireles Member ID Guarantor Name 02/07/2024 1 [place] Tanner Tolliver [id number] Tanner Tolliver 02/07/2024 2 [place] [id number] Tanner Tolliver [id number] Tanner Tolliver 08/07/2024 1 [place] Tanner Tolliver [id number] Tanner Tolliver 08/07/2024 2 [place] [id number] Tanner Tolliver [id number] Tanner Tolliver Notes Date Note Type [...] for care. Darvin Santos MD [address] [place] [address], [phone], [facility] 2024 10:17:39 08/07/2024 text/html The [...] has had no fever, chills, skin rash, Raynaud s symptoms, aphthous ulcers, cough, pleurisy, shortness [...] for care. Darvin Santos MD [address] [place] [address], [phone], [facility] 08/10/2024 16:39:22
[2024-12-29 12:36] LABS: LDL Cholesterol Direct 47 mg/dL
[2024-12-29 12:59] LABS: Prostate Specific Antigen 0.2 ng/mL (< OR = 4.0)
== END 2024-12-29 11:39 | disposition home or self-care (01) ==
DX: D64.9 Anemia, unspecified (principal); I10 Essential (primary) hypertension; R53.83 Other fatigue; Z12.5 Encounter for screening for malignant neoplasm of prostate; Z79.899 Other long term (current) drug therapy
CPT/HCPCS: 36415; 80053; 80061; 84153; 84443; 85027; G0103

== ENCOUNTER 2025-01-12 10:20 | Outpatient (CLI) | payer MEDICARE, SELFPAY ==
[2025-01-12 10:45] LABS: Hematocrit 36.7 % (42.0-52.0); Hemoglobin 11.7 g/dL (14.0-18.0); Mean Corpuscular HGB Conc 31.9 g/dl (32-36); Mean Corpuscular Hemoglobin 31.1 pg (26-34); Mean Corpuscular Volume 97.6 fl (80-100); Mean Platelet Volume 9.6 fl (7.4-10.4); Platelet Count Result 176 k/mm3 (150-375); Red Blood Count 3.76 M/mm3 (4.6-6.20); Red Cell Distribution Width 13.5 % (11.5-14.5); White Blood Count 5.9 K/mm3 (4.5-10.0)
--- OUTSIDE RECORDS SUMMARY | 2025-01-12 10:57 | XMS_ITS | Referral Summary ---
Author Organization [facility] [address] Address [address] [place] [address] Care Team Providers Care Gang Supervisor Pipe Lines Name Role Phone Angel HARPER MD, Jose [...] Comments Blood Pressure 94/60 08/15/2024 9:28 AM CAR RENTAL AGENCY MANAGER Pulse 83 08/15/2024 9:28 AM CAR RENTAL AGENCY MANAGER Temperature 36.6 C (97.8 F) 06/22/2020 11:57 AM CDT Respiratory Rate 16 05/30/2017 3:47 PM CDT Oxygen Saturation 94% 08/15/2024 9:28 AM CAR RENTAL AGENCY MANAGER Inhaled Oxygen Concentration - - Weight 65.2 kg (143 lb 12.8 oz) 08/15/2024 9:28 AM CAR RENTAL AGENCY MANAGER Height 170.2 cm (5' 7 ) 08/15/2024 9:28 AM CAR RENTAL AGENCY MANAGER Body Mass Index 22.52 08/15/2024 9:28 AM CAR RENTAL AGENCY MANAGER Plan of Treatment Not on file Insurance MEDICARE MEDICARE [employer] MEDICARE SUPPLEMENT Care Teams Gang Supervisor Pipe Lines Relationship Specialty Start Date End Date Jose G Ortiz II, MD [address] [place] [address] PCP - General Family Medicine 05/30/17
--- OUTSIDE RECORDS SUMMARY | 2025-01-12 10:57 | XMS_ITS | Clinical Summary ---
Author Organization [facility] [address] Address [address] [place] [address] Care Team Providers Care Antique Collector Name Role Phone Angel HARPER MD, Jose [...] Comments Blood Pressure 94/60 08/15/2024 9:28 AM MAINTENANCE MECHANIC Pulse 83 08/15/2024 9:28 AM MAINTENANCE MECHANIC Temperature 36.6 C (97.8 F) 06/22/2020 11:57 AM CDT Respiratory Rate 16 05/30/2017 3:47 PM CDT Oxygen Saturation 94% 08/15/2024 9:28 AM MAINTENANCE MECHANIC Inhaled Oxygen Concentration - - Weight 65.2 kg (143 lb 12.8 oz) 08/15/2024 9:28 AM MAINTENANCE MECHANIC Height 170.2 cm (5' 7 ) 08/15/2024 9:28 AM MAINTENANCE MECHANIC Body Mass Index 22.52 08/15/2024 9:28 AM MAINTENANCE MECHANIC Plan of Treatment Health Maintenance Due Date Last Done Comments Depression Screening 1935 Fall Risk Assessment 1935 DTaP/Tdap/Td Vaccine (1 - Tdap) 02/08/1947 Hepatitis B Screening 02/08/1954 Pneumococcal vaccine 65+ (1 of 2 - PCV) 02/08/1955 Well Visit 65+ 02/08/2001 Zoster Vaccine (2 of 2) 10/04/2020 08/09/2020 Covid-19 Vaccine (3 - Pfizer risk series) 11/24/2020 10/27/2020, 09/29/2020 Influenza Vaccine (Season Ended) 2025 08/09/20 20 Insurance MEDICARE MEDICARE [facility] MEDICARE SUPPLEMENT Care Teams Antique Collector Relationship Specialty Start Date End Date Jose G Ortiz II, MD [address] [place] [address] PCP - General Family Medicine 05/30/17
--- OUTSIDE RECORDS SUMMARY | 2025-01-12 10:57 | XMS_ITS | Data Portability ---
Author Organization [facility], [address] Neurology ([place]) Address [address] 4th [place] [address] Care Team Providers Care Auto Service Mechanic Name Role Phone KRISTIN CEDENO Primary Care Provider LUISITO CEDENO Referring Provider [phone] Assessment Encounter Date Assessment Date Assessment LastModified [...] 024 [facility], [address] [place] [address], [id number], 04/02/2024 15:43:30 CMP, serum or plasma 2023 024 [facility], [address] [place] [address], [id number], 04/02/2024 12:15:10 ESR (erythroc yte sedimenta tion rate), blood 2023 024 [email or web address] [facility], [address] [place] [address], [id number], 05/21/2024 14:22:09 unlisted lab - CRP ([facility] only) 2023 024 [email or web address] [facility], [address] [place] [address], [id number], 05/21/2024 14:22:09 Referral None recorded. 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 [...] Name and Address Organization Details Recorded Time 087047 Substance with sulfonami de structure and antibacte rial mechanism of action (substanc e) medicatio n hives Not available Not available 09/24/20232021 75337 8003 SNOMED React ion: Hives ; Not Available [facility] 22:00:58 349172 cephalexi n medicatio n other Not available Not available 09/24/20232021 2231 RxNorm React ion: Unkno wn to Patie nt; Not Available [facility] 22:01:25 954991 Product containin g penicilli n (product) medicatio n other Not available Not available 09/24/20232021 10671 8001 SNOMED React ion: Unkno wn to Patie nt; Not Available [facility] 22:01:25 Medications Name Sig Start Date Stop Date Status Note LastModified by Organization Details LastModified Time azithromyci n 250 mg tablet TAKE 2 TABLETS BY MOUTH TODAY, THEN TAKE 1 TABLET DAILY FOR 4 DAYS DIRECTED 01/08 completed Not Available Not Available Not Available aspirin 325 mg tablet Take 1 tablet every day by oral route. active Not Available Not Available No t Available lisinopril 20 mg tablet TAKE (1) TABLET BY MOUTH EVERY DAY active Not Available Not Available No t Available acetaminoph en 300 mg-codeine 30 mg tablet TAKE ONE OR TWO TABLETS EVERY SIX HOURS NEEDED FOR PAIN active Not Available Not Available No t Available alprazolam 0.25 mg tablet TAKE (1) TABLET BY MOUTH THREE TIMES DAILY active Not Available Not Available No t Available methotrexat e sodium 2.5 mg tablet TAKE (4) TABLETS BY MOUTH ONCE WEEKLY active Not Available Not Available No t [...] Updated DateTime 4 167.64 cm 22.3 kg/m2 19226.7 5 g 51 /min 97 % 97 % 120 mm[Hg] 70 mm[Hg] Katie Cheema [facility] 4 08:58:15 Date Recorded Body height Heart rate Oxygen saturation Oxygen saturation in Arterial blood by Pulse oximetry Systolic blood pressure Diastolic blood pressure Provider Name and Address Organization Details Last Updated DateTime 4 167.64 cm 61 /min 97 % 97 % 130 mm[Hg] 84 mm[Hg] Melquiades Alstonw [facility] 4 09:08:43 Social History Question Answer Notes LastModified by Organizat ion Details LastModified Time Do You Have An Advance Directive? Yes [email or web address] Information not available 02/05/2024 What Is Your Level Of Caffeine Consumption? Moderate [email or web address] Information not available 02/05/2024 What Is Your Code Status? DNR [email or web address] Information not available 02/05/2024 How Many Times Per Week Do You Exercise? Less Than 1 Time Per Week [email or web address] Information not available 02/05/2024 Do You Have A Medical Power Of Centrifugal Screen Tender? Yes [email or web address] Information not available 02/05/2024 What Was The Date Of Your Most Recent Tobacco Screening? 02/07/2024 [email or web address] Information not available 02/05/2024 What Is Your Relationship Status? [email or web address] Information not available 02/05/2024 Sex: Unknown Functional Status Question Answer Note LastModified by Organizat ion Details LastModified Time Do you use any illicit or recreational drugs? No [email or web address] Information not available 02/05/2024 What is your level of alcohol consumption? None [email or web address] Information not available 02/05/2024 Are you currently employed? 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 None [email or web address] Information not available 02/05/2024 Mental Status None recorded. Family History Relationship Description Onset Age of this Age Resolved Age Notes LastModified by Organization Details LastModified Time Father No current problems or disability [email or web address] Not available 01/30 12:45:17 Mother No current problems or disability Not available 01/30 12:45:17 Unspecified Relation Hypercholest [...] SNOMED-CT Code Diagnosis ICD10 Code Diagnosis Note [id number] Darvin Santos MD [facility] ([place]) [address] [place] [address] 02/07/2024 08:49:30 02/08/2024 21:12:41 Seropositive rheumatoid arthritis 320032635 M05.9 Osteoarthritis 052839149 M19.90 Chronic ki dney disease stage 3 570123140 N18.30 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 0787720050 4617046 M05.89 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 4296791469 00 Z79.631 [id number] Darvin Santos MD [facility] ([place]) [address] [place] [address] 08/07/2024 09:07:55 08/10/2024 04:58:03 Seropositive rheumatoid arthritis 659643903 M05.9 Osteoarthritis 526085509 M19.90 Chronic ki dney disease stage 3 492142889 N18.30 Health Concerns Section Related Observation LastModified by Organization Detai ls LastModified Time None Recorded Concern Status LastModified by Organization Details LastModified Time None Recorded Advance Directives Directive Y: Payers Insurance Date Sequence Insurance Name Policy Number Policy Mireles Covered Member ID Mireles Member ID Guarantor Name 01/10/2025 1 [place] Tanner Tolliver [id number] Tanner Tolliver 01/10/2025 2 [place] [id number] Tanner Tolliver [id number] Tanner Tolliver Notes Date Note Type [...] disease and normal acute phase reactants.jaycee Tanner Tolliveris a 88 year oldmalepresenting for care. Darvin Santos MD [address] [place] [address], [phone], [facility] 2024 10:17:39 08/07/2024 text/html The patient is [...] for care. Darvin Santos MD [address] [place] [address], [address], [facility] 08/10/2024 16:39:22
--- OUTSIDE RECORDS SUMMARY | 2025-01-12 10:57 | XMS_ITS | Clinical Summary ---
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
[2025-01-12 11:00] LABS: Alanine Aminotransferase 13 U/L (6-50); Alkaline Phosphatase 58 U/L (38-126); Anion Gap 6 mmol/L (4-12); Aspartate Amino Transferase 25 U/L (17-59); Bilirubin,Total 0.7 mg/dL (0.2-1.3); Blood Urea Nitrogen 23 mg/dL (9-20); CRP < 0.5 mg/dL (<1.0); Carbon Dioxide 28 mmol/L (22-30); Chloride 104 mmol/L (98-107); Estimated Glomerular Filt Rate 49; Glucose 97 mg/dL (65-110); Potassium 4.2 mmol/L (3.4-5.0); Sodium 138 mmol/L (137-145)
[2025-01-12 12:37] LABS: Erythrocyte Sedimentation Rate 20 mm/hr (0-20)
== END 2025-01-12 10:21 | disposition home or self-care (01) ==
LOC: ANHLAB 10:23
PROVIDERS: Visit Provider Internal Medicine Rheumatology
DX: M05.9 Rheumatoid arthritis with rheumatoid factor, unspecified (principal)
CPT/HCPCS: 36415; 80053; 85027; 85652; 86140

== ENCOUNTER 2025-06-06 13:53 | Emergency (ER) | payer MEDICARE, SELFPAY ==
--- NOTE | ~2025-06-06 | XR_ITS ---
EXAMINATION: XR chest 2V, 06/06/2025 14:55 CDT HISTORY: weakness COMPARISON: No comparisons available. Technique: 2 views obtained. Findings: The lungs are clear, no effusion. No pneumothorax. Heart is normal size. Mediastinal and hilar contours are within normal limits. Bony thorax no acute abnormality. Impression: No acute cardiopulmonary abnormality. Reviewed, dictated and finalized at location P. Impression: No acute cardiopulmonary abnormality.
--- OUTSIDE RECORDS SUMMARY | 2025-06-06 13:55 | XMS_ITS | Clinical Summary ---
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
--- OUTSIDE RECORDS SUMMARY | 2025-06-06 13:55 | XMS_ITS | Clinical Summary ---
Author Organization [facility] [address] Address [address] [place] [address] Care Team Providers Care Interactive Media Designer Name Role Phone Angel HARPER MD, Jose [...] Comments Blood Pressure 94/60 08/15/2024 9:28 AM DAMAGE ASSESSOR Pulse 83 08/15/2024 9:28 AM DAMAGE ASSESSOR Temperature 36.6 C (97.8 F) 06/22/2020 11:57 AM CDT Respiratory Rate 16 05/30/2017 3:47 PM CDT Oxygen Saturation 94% 08/15/2024 9:28 AM DAMAGE ASSESSOR Inhaled Oxygen Concentration - - Weight 65.2 kg (143 lb 12.8 oz) 08/15/2024 9:28 AM DAMAGE ASSESSOR Height 170.2 cm (5' 7) 08/15/2024 9:28 AM DAMAGE ASSESSOR Body Mass Index 22.52 08/15/2024 9:28 AM DAMAGE ASSESSOR Plan of Treatment Health Maintenance Due Date Last Done Comments Depression Screening 1935 Fall Risk Assessment 1936 DTaP/Tdap/Td Vaccine (1 - Tdap) 02/08/1947 Hepatitis B Screening 02/08/1954 Pneumococcal vaccine 65+ (1 of 2 - PCV) 02/08/1955 Well Visit 65+ 02/08/2001 Zoster Vaccine (2 of 2) 10/04/2020 08/09/2020 Covid-19 Vaccine (3 - Pfizer risk series) 11/24/2020 10/27/2020, 09/29/2020 Influenza Vaccine (#1) 2025 08/09/2020 Insurance MEDICARE MEDICARE [facility] MEDICARE SUPPLEMENT Member Subscriber Plan / Payer (Ef fective 2001-Present) Name:Tanner Tolliver Relation to Subscriber:Self Name:Tanner Tolliver Payer ID:[id number] Type:COMMERCIAL Address: [address] [place] [phone] Care Teams Interactive Media Designer Relationship Specialty Start Date End Date Jose G Ortiz II, MD [address] [place] [address] PCP - General Family Medicine 05/30/17
--- NOTE | 2025-06-06 14:22 | ECG_ITS ---
Test Date: 2025-06-06 14:24:22 Measurements Intervals [place] Rate: 69 P: -27 NE: 153 QRS: -42 QRSD: 92 T: 30 QT: 406 QTc: 436 Interpretive Statements SINUS RHYTHM WITH OCCASIONAL SUPRAVENTRICULAR PREMATURE COMPLEXES LEFT AXIS DEVIATION INCOMPLETE RIGHT BUNDLE BRANCH BLOCK BASELINE ARTIFACT- I, II, AVR, AVL, AVF, V1-V6 BORDERLINE ECG Compared to ECG 08/31/2024 16:31:44 NO SIGNIFICANT CHANGE Electronically Signed On 06-06-2025 15:57:20 CDT by Delonte Feliciano D.O.
--- OUTSIDE RECORDS SUMMARY | 2025-06-06 14:24 | XMS_ITS | Clinical Summary ---
Author Organization [facility] [address] Address [address] [place] [address] Care Team Providers Care Chess Instructor Name Role Phone Angel HARPER MD, Jose [...] Comments Blood Pressure 94/60 08/15/2024 9:28 AM CARDIAC CATH TECH Pulse 83 08/15/2024 9:28 AM CARDIAC CATH TECH Temperature 36.6 C (97.8 F) 06/22/2020 11:57 AM CDT Respiratory Rate 16 05/30/2017 3:47 PM CDT Oxygen Saturation 94% 08/15/2024 9:28 AM CARDIAC CATH TECH Inhaled Oxygen Concentration - - Weight 65.2 kg (143 lb 12.8 oz) 08/15/2024 9:28 AM CARDIAC CATH TECH Height 170.2 cm (5' 7) 08/15/2024 9:28 AM CARDIAC CATH TECH Body Mass Index 22.52 08/15/2024 9:28 AM CARDIAC CATH TECH Plan of Treatment Health Maintenance Due Date [...] Vaccine (#1) 2025 08/09/2020 Insurance MEDICARE MEDICARE [facility] MEDICARE SUPPLEMENT Member Subscriber Plan / Payer (Ef fective 2001-Present) Name:Tanner Tolliver Relation to Subscriber:Self Name:Tanner Tolliver Payer ID:[id number] Type:COMMERCIAL Address: [address] [place] [phone] Care Teams Chess Instructor Relationship Specialty Start Date End Date Jose G Ortiz II, MD [address] [place] [address] PCP - General Family Medicine 05/30/17
--- OUTSIDE RECORDS SUMMARY | 2025-06-06 14:24 | XMS_ITS | Clinical Summary ---
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
[2025-06-06 14:40] LABS: Hematocrit 31.5 % (42.0-52.0); Hemoglobin 10.6 g/dL (14.0-18.0); Immature Granulocyte Percent A 0.6 % (0-0.5); Lymphocytes Absolute Auto 1.66 K/mm3 (0.9-3.2); Mean Corpuscular HGB Conc 33.7 g/dl (32-36); Mean Corpuscular Hemoglobin 32.5 pg (26-34); Mean Corpuscular Volume 96.6 fl (80-100); Nucleated Red Blood Cells Absolute Auto 0.020 K/mm3 (0.0-0.012); Nucleated Red Blood Cells Perc 0.4 % (0.0-0.2); Platelet Count Result 144 k/mm3 (150-375); Red Blood Count 3.26 M/mm3 (4.6-6.20); White Blood Count 4.7 K/mm3 (4.5-10.0)
--- NOTE | 2025-06-06 14:51 | ED_ITS ---
HPI - Weakness General Chief complaint: Weakness Stated complaint: dizzy, weak Time Seen by Provider: 06/06/25 14:19 History of Present Illness HPI Narrative: Patient is a 89-year-old male who presents to the ER with concerns for dehydration. He reports he went golfing on Sunday, 4 days ago, and has felt weak ever since. Patient reports after golfing he experienced nausea and vomiting. He has not vomited since then but has decreased p.o. intake. Patient endorses a history of a stroke (17 years ago), mitral valve dysfunction, aphasia, insomnia, anxiety, chronic back pain, hypertension and hyperlipidemia. He denies any chest pain, shortness of breath, headache, or lower extremity swelling. Related Data Allergies Allergy/AdvReac Type Severity Reaction Status Date / Time cephalexin Allergy Severe ANAPHALYTIC Verified 06/06/25 13:56 Penicillins Allergy Severe RASH Verified 06/06/25 13:56 sulfamethoxazole Allergy Severe RASH Verified 06/06/25 13:56 trimethoprim Allergy Severe RASH Verified 06/06/25 13:56 Review of Systems 2 Review of Systems: All systems reviewed & are unremarkable except as noted in HPI and below PMFSH Past Medical History Medical History BPH (benign prostatic hyperplasia) Rheumatoid arthritis CVA (cerebral vascular accident) Hypertension Surgical History Surgical History No pertinent past surgical history Exam 2 Narrative: GENERAL: Well appearing, well-nourished, non-toxic, in no acute distress. HEAD: Normocephalic, atraumatic. NECK: Supple. No adenopathy, no masses. RESPIRATORY: Airway patent, respirations nonlabored. Clear to auscultation bilaterally, no rales, rhonchi, wheezing. CARDIOVASCULAR: Regular rate and rhythm without murmurs, rubs, or gallops. Peripheral pulses 2+ and equal bilaterally. ABDOMINAL: Soft, nontender, nondistended, no hepatosplenomegaly. Normoactive BS. MUSCULOSKELETAL: Moves all extremities. Strength/ROM intact without gross deformities. SKIN: Warm, dry, normal color. No rashes. NEURO: A&O X3. Speech clear. Cranial nerves II-XII intact. No ataxic movements. PSYCHIATRIC: Appropriate mood and affect. Normal interaction. MDM - Weakness MDM Narrative Medical decision making narrative: Patient is a 89-year-old male who presents to the ER with concerns for dehydration. He reports he went golfing on Sunday, 4 days ago, and has felt weak ever since. Patient reports after golfing he experienced nausea and vomiting. He has not vomited since then but has decreased p.o. intake. Patient endorses a history of a stroke (17 years ago), mitral valve dysfunction, aphasia, insomnia, anxiety, chronic back pain, hypertension and hyperlipidemia. He denies any chest pain, shortness of breath, headache, or lower extremity swelling. Labs Ordered: CBC, CMP, CK, UA Imaging Ordered: Chest x-ray Medications Ordered: 1 L normal saline IV bolus Results: Patient's blood work results are similar to previous visit results. Diagnosis: Dehydration Patient Education/Shared MDM: Results of lab work and imaging shared with patient and his son. He endorses improvement of symptoms following IV fluid administration. Patient strongly advised to maintain hydration status upon discharge and follow-up with his PCP as soon as possible. He will be discharged home with no new prescriptions. Strict return precautions provided. Patient verbalized understanding and is in agreement with plan. Vital signs stable at time of discharge. All questions answered. Differential Diagnosis Differential diagnosis: Likely rhabdomyolysis, dehydration and other (urinary tract infection) Lab Data Attestation: I reviewed the patient's lab results. 06/06/25 14:33 06/06/25 14:33 Labs: Lab Results 06/06/25 06/06/25 Range/Units 14:33 16:04 WBC 4.7 (4.5-10.0) K/mm3 RBC 3.26 L (4.6-6.20) M/mm3 Hgb 10.6 L (14.0-18.0) g/dL Hct 31.5 L (42.0-52.0) % MCV 96.6 (80-100) fl MCH 32.5 (26-34) pg MCHC 33.7 (32-36) g/dl RDW 14.0 (11.5-14.5) % Plt Count 144 L (150-375) k/mm3 MPV 10.3 (7.4-10.4) fl Immature Gran % (Auto) 0.6 H (0-0.5) % Neut % (Auto) 60.2 (45.5-73.1) % Lymph % (Auto) 35.2 (18.3-44.2) % Glenn % (Auto) 2.3 L (2.6-8.5) % Eos % (Auto) 1.1 (0-4.4) % Baso % (Auto) 0.6 (0.2-1.2) % Lymph # (Auto) 1.66 (0.9-3.2) K/mm3 Glenn # (Auto) 0.1 (0.1-0.6) K/mm3 Eos # (Auto) 0.1 (0-0.3) K/mm3 Baso # (Auto) 0.0 (0.0-0.1) K/mm3 Abs Immat Gran (auto) 0.03 (0.00-0.031) K/mm3 Absolute Neuts (auto) 2.8 (1.3-6.7) K/mm3 Absolute Nucleated RBC 0.020 H (0.0-0.012) K/mm3 Nucleated RBC % 0.4 H (0.0-0.2) % Sodium 130 L (137-145) mmol/L Potassium 3.9 (3.4-5.0) mmol/L Chloride 96 L (98-107) mmol/L Carbon Dioxide 24 (22-30) mmol/L Anion Gap 10 (4-12) mmol/L BUN 41 H D (9-20) mg/dL Creatinine 1.24 (0.7-1.3) mg/dL Estim Creat Clear Calc 29 ml/min Estimated GFR 55 L (59 - ) Glucose 107 (65-110) mg/dL Calcium 9.2 (8.4-10.2) mg/dL Total Bilirubin 1.3 (0.2-1.3) mg/dL AST 31 (17-59) U/L ALT 34 (6-50) U/L Alkaline Phosphatase 62 (38-126) U/L Total Creatine Kinase 46 L (55-170) U/L Total Protein 7.4 (6.3-8.2) g/dL Albumin 4.0 (3.5-5.1) g/dL Urine Color Yellow (Yellow) Urine Appearance Cloudy H (Clear) Urine pH 6.5 (5.0-9.0) Ur Specific [place] 1.009 (1.001-1.035) Urine Protein Negative (Negative) mg/dL Urine Glucose (UA) Negative (Negative) mg/dL Urine Ketones Trace H (Negative) mg/dL Ur Blood (Man) Negative (Negative) Urine Nitrate Negative (Negative) Urine Bilirubin Negative (Negative) Urine Urobilinogen 1.0 (<2.0) mg/dL Leukocyte Esterase Rfl Negative (Negative) BRADY/UL Urine RBC 0-2 (0-2) /hpf Urine WBC 0-5 (0-3) /hpf Ur Squamous Epith Cells None seen (Few) /hpf Urine Bacteria None seen /hpf Urine Casts 0-2 Imaging Data Attestation: I personally reviewed and interpreted this imaging study as follows: Radiologist's impression: Impressions Chest X-Ray 06/06/25 15:07 Impression: No acute cardiopulmonary abnormality. Discharge Plan Discharge Clinical Impression: Dehydration Patient Disposition: Home Condition: Stable Instructions: Antibiotic Form, Dehydration (ED) Additional Instructions: Please return to the ER with any worsening symptoms. Follow-up with primary care provider as soon as possible to ensure you are improving. Take all medications as prescribed, including regularly scheduled medications. Please remember to drink lots of water. Patient Language: Uzbek Prescriptions: No Action ondansetron 4 mg tablet,disintegrating 4 mg PO Q6H PRN (Reason: nausea and vomiting) Qty: 10 0RF Follow-up/Referrals: PHYSICIAN NOT ON STAFF,NONSTAFF [Primary Care Provider] Time of Disposition: 16:28
[2025-06-06 14:52] LABS: Alanine Aminotransferase 34 U/L (6-50); Albumin Level 4.0 g/dL (3.5-5.1); Alkaline Phosphatase 62 U/L (38-126); Anion Gap 10 mmol/L (4-12); Aspartate Amino Transferase 31 U/L (17-59); Bilirubin,Total 1.3 mg/dL (0.2-1.3); Blood Urea Nitrogen 41 mg/dL (9-20); Calcium 9.2 mg/dL (8.4-10.2); Carbon Dioxide 24 mmol/L (22-30); Chloride 96 mmol/L (98-107); Estimated CRCL calculation 29 ml/min; Estimated Glomerular Filt Rate 55; Glucose 107 mg/dL (65-110); Potassium 3.9 mmol/L (3.4-5.0); Sodium 130 mmol/L (137-145); Total Protein 7.4 g/dL (6.3-8.2)
[2025-06-06] MEDS: SODIUM CHLORIDE 0.9% IV 1,000 ML 999 ML IV CONT (15:28)
[2025-06-06 15:30] LABS: Creatine Kinase 46 U/L (55-170)
[2025-06-06 16:17] LABS: Add Urine Microscopic? YES; Appearance Urine Cloudy (Clear); Glucose Urine UA Negative (Negative); Leukocyte Esterase Ur Negative LEU/UL (Negative); Nitrate Urine Negative (Negative); Non Pathogenic Casts 0-2; Specific Grav Ur 1.009 (1.001-1.035)
[2025-06-06 17:11] VITALS: BP 120/54; PULSE 70; RESP 16; O2SAT 95
== END 2025-06-06 17:14 | disposition home or self-care (01) ==
PROVIDERS: Emergency Medicine; Emergency Provider Registered Nurse
DX: E86.0 Dehydration (principal); I10 Essential (primary) hypertension; E78.5 Hyperlipidemia, unspecified; M06.9 Rheumatoid arthritis, unspecified; N40.0 Benign prostatic hyperplasia without lower urinary tract symptoms; Z86.73 Personal history of transient ischemic attack (TIA), and cerebral infarction without residual deficits; I49.1 Atrial premature depolarization; I45.10 Unspecified right bundle-branch block
CPT/HCPCS: 36415; 71046; 80053; 81001; 82550; 85025; 93005; 96360; 99283; J7030

== ENCOUNTER 2025-07-06 11:06 | Outpatient (CLI) | payer MEDICARE, SELFPAY ==
--- OUTSIDE RECORDS SUMMARY | 2025-07-06 11:59 | XMS_ITS | Clinical Summary ---
Author Organization [facility] [address] Address [address] [place] [address] Care Team Providers Care Accounts Adjustable Clerk Name Role Phone Angel HARPER MD, [...] Comments Blood Pressure 94/60 08/15/2024 9:28 AM INFORMATION MANAGEMENT SPECIALIST Pulse 83 08/15/2024 9:28 AM INFORMATION MANAGEMENT SPECIALIST Temperature 36.6 C (97.8 F) 06/22/2020 11:57 AM CDT Respiratory Rate 16 05/30/2017 3:47 PM CDT Oxygen Saturation 94% 08/15/2024 9:28 AM INFORMATION MANAGEMENT SPECIALIST Inhaled Oxygen Concentration - - Weight 65.2 kg (143 lb 12.8 oz) 08/15/2024 9:28 AM INFORMATION MANAGEMENT SPECIALIST Height 170.2 cm (5' 7) 08/15/2024 9:28 AM INFORMATION MANAGEMENT SPECIALIST Body Mass Index 22.52 08/15/2024 9:28 AM INFORMATION MANAGEMENT SPECIALIST Plan of Treatment Health Maintenance Due Date [...] Vaccine (#1) 2025 08/09/2020 Insurance MEDICARE MEDICARE [facility] MEDICARE SUPPLEMENT Care Teams Accounts Adjustable Clerk Relationship Specialty Start Date End Date Jose G Ortiz II, MD [address] [place] [address] PCP - General Family Medicine 05/30/17
--- OUTSIDE RECORDS SUMMARY | 2025-07-06 11:59 | XMS_ITS | Clinical Summary ---
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 Gender Identity Not on file Sexual Orientation Not on file Plan of Treatment Health Maintenance Due Date Last Done Comments DTaP, Tdap and Td Vaccines ( 1 - Tdap) [birth year]08/1954 Pneumococcal Vaccine: 50+ Ye ars (1 of 1 - PCV) 02/08/1986 Zoster Vaccines (1 of 2) 02/08/1986 RSV Immunization or 60+ Years (1 - 1-dose 75+ series) 02/08/2011 COVID-19 Vaccine ( - 2024-2 6 season) 2025 Influenza Adult (#1) 2025 Hepatitis A Vaccines Aged Out No long er eligible based on patient's age to complete this topic Meningococcal B Vaccine Aged Out No l onger eligible based on patient's age to complete this topic Meningococcal Vaccine Aged Out No herminia zakia eligible based on patient's age to complete this topic RSV Immunizations Under 20 Months Aged Out No longer eligible based on patient's age to complete this topic
[2025-07-06 12:01] LABS: Hematocrit 33.3 % (42.0-52.0); Hemoglobin 10.5 g/dL (14.0-18.0); Mean Corpuscular HGB Conc 31.5 g/dl (32-36); Mean Corpuscular Hemoglobin 32.1 pg (26-34); Mean Corpuscular Volume 101.8 fl (80-100); Platelet Count Result 181 k/mm3 (150-375); Red Blood Count 3.27 M/mm3 (4.6-6.20); White Blood Count 5.5 K/mm3 (4.5-10.0)
[2025-07-06 12:17] LABS: Alanine Aminotransferase 10 U/L (6-50); Albumin Level 3.8 g/dL (3.5-5.1); Alkaline Phosphatase 54 U/L (38-126); Anion Gap 4 mmol/L (4-12); Aspartate Amino Transferase 22 U/L (17-59); Bilirubin,Total 0.4 mg/dL (0.2-1.3); Blood Urea Nitrogen 23 mg/dL (9-20); CRP < 0.5 mg/dL (<1.0); Calcium 9.0 mg/dL (8.4-10.2); Carbon Dioxide 29 mmol/L (22-30); Chloride 103 mmol/L (98-107); Estimated Glomerular Filt Rate 52; Glucose 117 mg/dL (65-110); Potassium 3.9 mmol/L (3.4-5.0); Sodium 136 mmol/L (137-145); Total Protein 6.8 g/dL (6.3-8.2)
[2025-07-08 12:55] LABS: Cholesterol 118 mg/dL (0-200); HDL Direct 46 mg/dL; Triglycerides 77 mg/dL (<150)
[2025-07-08 14:01] LABS: Vitamin B12 387.0 pg/mL (239-931)
== END 2025-07-06 11:07 | disposition home or self-care (01) ==
PROVIDERS: Visit Provider Internal Medicine Rheumatology
DX: M05.9 Rheumatoid arthritis with rheumatoid factor, unspecified (principal)
CPT/HCPCS: 36415; 80053; 80061; 82607; 82746; 85027; 85652; 86140